=== PATIENT | female | born 1940 | race Caucasian/White ===

== ENCOUNTER 2016-07-10 10:02 | Outpatient (CLI) | payer MEDICARE, OTHER | END 2016-07-10 10:03 | disposition home or self-care (01) | DX: I10 Essential (primary) hypertension (principal); E03.9 Hypothyroidism, unspecified; G89.4 Chronic pain syndrome; S52.591S Other fractures of lower end of right radius, sequela ==

== ENCOUNTER 2016-12-04 13:07 | Outpatient (CLI) | payer MEDICARE, OTHER, MEDICAID ==
--- NOTE | 2016-12-04 14:01 | XRAY Report ---
MODIFIED BARIUM SWALLOW: 12/04/2016 CLINICAL INDICATION: Dysphagia, anorexia. FINDINGS: Various consistencies of barium were prepared and administered in conjunction with Speech Pathology. There was trace penetration with thin liquids. Other administered consistencies were unr emarkable. No aspiration was identified. IMPRESSION: TRACE PENETRATION WITH THIN LIQUID. FLUOROSCOPY TIME: 1 minute; 1 spot image obtained (cinefluoroscopy recorded). JOB #: [id number] EXT JOB #:[id number]
== END 2016-12-04 13:08 | disposition home or self-care (01) ==
LOC: DI 13:07
PROVIDERS: ATTEND Family Medicine
DX: R13.10 Dysphagia, unspecified (principal); R63.0 Anorexia
CPT/HCPCS: 74230; 92611; G8996; G8997; G8998

== ENCOUNTER 2017-01-17 09:05 | Outpatient (CLI) | payer MEDICARE, OTHER, MEDICAID ==
[2017-01-17] MEDS ORDERED: BARIUM SULFATE 176 GM BOTTLE PO ONE (10:09)
--- NOTE | 2017-01-18 09:33 | XRAY Report ---
BARIUM SWALLOW: 01/17/2017 CLINICAL HISTORY: Patient has dysphagia and anorexia as well as a feeling of fullness in the esophag us when eating. FINDINGS: The pharynx and cervical esophagus were studied in detail in the upright position. These demonstrated prominent indentation on the posterior aspect of the cervical esophagus at the level of the cricopharyngeus sphincter muscle. This indentation narrowed the cervical esophagus at least 70%. This type of indentation was seen with each swallow during the course of the examination. It repre sents incomplete relaxation in the cricopharyngeus sphincter muscle and can be a cause of significant dysphagia. Patient aspirated a tiny amount of barium once during the course of the examination. Sh reba quickly cleared it from her airway. Esophageal motility was abnormal. There was no significant primary peristaltic wave or secondary per istaltic wave. Barium was propelled down the esophagus via intermittent tertiary contractions. The distal gastroesophageal junction showed a small sliding hiatal hernia with a prominent, probably partially obstructive Schatzki's ring. This Schatzki's ring at the gastroesophageal junction produce d at least 70% narrowing of the esophagus in this area. No gastroesophageal reflux was noted. Patient was cautioned after the exam that she might encounter constipation. She was to drink a lot o f water today and if necessary, take a mild laxative if constipation is encountered. Total fluoro time was 3 minutes, 3 seconds, and 137 images were taken. IMPRESSION: 1. EXTREMELY PROMINENT EXTRINSIC TYPE INDENTATION IS NOTED ON THE CERVICAL ESOPHAGUS DURING EACH SWA LLOWING. THIS PRODUCES AT LEAST 70% NARROWING OF THE CERVICAL ESOPHAGUS AT THIS POINT. IT REPRESENT S INCOMPLETE RELAXATION OF THE CRICOPHARYNGEUS SPHINCTER MUSCLE. THIS ABNORMALITY WAS NOTED WITH EAC H SWALLOW. PATIENT ALSO ENCOUNTERED AT LEAST ONE MINIMAL EPISODE OF ASPIRATION DISCUSSED ABOVE. 2. ESOPHAGEAL MOTILITY IS ABNORMAL. NO PRIMARY OR SECONDARY PERISTALTIC WAVES WERE NOTED IN THE ESO PHAGUS. BARIUM WAS PROPELLED DOWN THE ESOPHAGUS VIA INTERMITTENT TERTIARY CONTRACTIONS. THIS ESOPHA GEAL MOTILITY DISTURBANCE IS NONSPECIFIC. PRIMARY CONSIDERATION IS A PRESBYESOPHAGUS A RESULT OF AGE. 3. SMALL SLIDING HIATAL HERNIA IS NOTED IN ASSOCIATION WITH A PARTIALLY OBSTRUCTIVE SCHATZKI'S RING. THE SCHATZKI'S RING PRODUCES 70% NARROWING OF THE GASTROESOPHAGEAL JUNCTION. 4. EXAMINATION WAS NEGATIVE FOR GASTROESOPHAGEAL REFLUX. JOB #: [id number] EXT JOB #:[id number]
== END 2017-01-17 09:06 | disposition home or self-care (01) ==
LOC: DI 09:05
PROVIDERS: ATTEND Family Medicine
DX: R13.10 Dysphagia, unspecified (principal); R63.0 Anorexia; K22.2 Esophageal obstruction; K44.9 Diaphragmatic hernia without obstruction or gangrene; K22.4 Dyskinesia of esophagus
CPT/HCPCS: 74220; A9270

== ENCOUNTER 2017-07-31 11:11 | Outpatient (CLI) | payer MEDICARE, MEDICAID | END 2017-07-31 11:12 | disposition critical access hospital (66) | LOC: EMS 11:11 | PROVIDERS: ATTEND Surgery | DX: R52 Pain, unspecified (principal); Z91.81 History of falling | CPT/HCPCS: A0425; A0429 ==

== ENCOUNTER 2017-07-31 11:42 | Inpatient (IN) | payer MEDICARE, MEDICAID ==
[2017-07-31] MEDS ORDERED: SODIUM CHLORIDE 0.9% 1,000 ML IV ONE (12:19)
--- NOTE | 2017-07-31 12:22 | ED Physician Documentation ---
PD HPI ALTERED MENTAL STATUS - Stated complaint Stated Complaint: aloc - Chief complaint Chief Complaint: Neuro - History obtained from History obtained from: Patient, EMS, Caregiver - History of Present Illness Timing - onset: Today Timing - duration: Hours Timing - details: Gradual onset, Still present Quality / character: Less responsive Associated symptoms: Headache, General weakness Contributing factors: Recent injury Basline status: Ambulatory Similar symptoms before: Has not had sx before Recently seen: Clinic - Additional information Additional information: 77-year-old female was in her usual state of health when into see her primary care doctor about 1 week ago to get a flu shot. Shortly after that she developed a cough and she has had increasing cough since and she has had 2 falls. She is fallen and hit the top of her head without loss of consciousness and then last night she fell against the wall and slid to the ground and was not able to get up off the floor. She was discovered this morning by her catalogue and special products manager and was not talking much when the catalogue and special products manager got to her. Review of Systems Constitutional: denies: Fever, Chills Eyes: denies: Decreased vision Ears: denies: Ear pain Nose: denies: Congestion Throat: denies: Sore throat Cardiac: denies: Chest pain / pressure, Palpitations Respiratory: reports: Dyspnea, Cough GI: denies: Abdominal Pain, Nausea, Vomiting : denies: Dysuria, Frequency Musculoskeletal: reports: Back pain. denies: Neck pain Neurologic: reports: Generalized weakness, Confused, Headache, Head injury. denies: Focal weakness, Numbness PD PAST MEDICAL HISTORY - Past Medical History Cardiovascular: Hypertension, High cholesterol Respiratory: COPD Neuro: None Endocrine/Autoimmune: HyPOthyroidism GI: Chronic diarrhea : None HEENT: None Psych: Depression Musculoskeletal: Osteoporosis Derm: None - Past Surgical History Past Surgical History: Yes Ortho: Other HEENT: Cataracts - Present Medications Home Medications: Ambulatory Orders Medication Instructions Recorded Confirmed Cholecalciferol (Vitamin D3) 3,000 units PO DAILY 12/16/13 07/31/17 [Vitamin D] Fluoxetine HCl 40 mg PO DAILY 12/16/13 07/31/17 Fluticasone [Flonase] 2 spray NOEMI DAILY PRN 12/16/13 07/31/17 Levothyroxine Sodium [Levoxyl] 175 mcg PO QDAC 12/16/13 07/31/17 Naproxen [Naprosyn] 500 mg PO BID PRN 12/16/13 07/31/17 Albuterol 3 ml INH Q4H PRN 07/31/17 07/31/17 Calcium Carbonate 600 mg PO BID 07/31/17 07/31/17 Diphenoxylate HCl/Atropine 1 tab PO Q6H PRN 07/31/17 07/31/17 [Diphenoxylate-Atrop 2.5-0.025] Losartan [Cozaar] 50 mg PO DAILY 07/31/17 07/31/17 Mirtazapine [Remeron] 7.5 mg PO QPM PRN 07/31/17 07/31/17 oxyCODONE [Roxicodone] 5 mg PO QID 07/31/17 07/31/17 - Allergies Allergies/Adverse Reactions: Allergies Allergy/AdvReac Type Severity Reaction Status Date / Time No Known Drug Allergies Allergy Verified 02/21/15 10:02 - Social History Does the pt smoke?: Yes Smoking Status: Current every day smoker Does the pt drink ETOH?: Yes Does the pt have substance abuse?: No PD ED PE NORMAL - Vitals Vital signs reviewed: Yes (tachy and mild hypoxia) - General General: No acute distress, Well developed/nourished, Other (The patient has a blunted affect and appears dry. ) - HEENT HEENT: PERRL, EOMI, Other (There is point tendernes to the vertex on the right. mucous membranes are dry ) - Neck Neck: Supple, no meningeal sign, No bony TTP - Cardiac Cardiac: RRR, No murmur - Respiratory Respiratory: No respiratory distress, Other (diminished breath sounds ) - Abdomen Abdomen: Soft, Non tender - Back Back: No CVA TTP, Other (There is mild tenderness to the lower lumbar spine. ) - Derm Derm: Normal color, Warm and dry, No rash - Extremities Extremities: No deformity, No edema - Neuro Neuro: No motor deficit, No sensory deficit, Normal speech Eye Opening: Spontaneous Motor: Obeys Commands Verbal: Oriented GCS Score: 15 - Psych Psych: Normal mood, Normal affect Results - Vitals Vitals: Vital Signs - 24 hr 07/31/17 07/31/17 11:44 14:09 Temperature 37.0 C Heart Rate 109 H 110 H Respiratory 16 20 Rate Blood Pressure 107/67 99/54 L O2 Saturation 88 L 92 Oxygen O2 Source [] Room air O2 Source [] Room air O2 Source Nasal cannula - Labs Labs: Laboratory Tests 07/31/17 07/31/17 07/31/17 12:28 12:28 12:28 WBC 14.2 H RBC 3.90 L Hgb 12.5 Hct 35.9 L MCV 91.9 MCH 32.0 H MCHC 34.8 RDW 12.7 Plt Count 185 MPV 7.5 L Neut # 13.6 H Lymph # 0.3 L [place] # 0.1 Eos # 0.0 Baso # 0.2 H Absolute Nucleated RBC 0.00 Nucleated RBC % 0.0 Manual Slide Review Indicated WBC Morphology NORMAL APPEARANCE Platelet Estimate NORMAL (130-450,000) Platelet Morphology NORMAL APPEARANCE RBC Morph Micro Appear NORMAL APPEARANCE Sodium 132 L Potassium 3.7 Chloride 96 L Carbon Dioxide 20 L Anion Gap 16.0 H BUN 50 H Creatinine 2.1 H Estimated GFR (MDRD) 23 L Glucose 107 H Calcium 9.4 Total Bilirubin 1.4 H AST 35 ALT 31 Alkaline Phosphatase 93 Troponin I 0.04 Total Protein 8.2 Albumin 3.3 Globulin 4.9 H Albumin/Globulin Ratio 0.7 L Lipase 17 L Urine Color Urine Clarity Urine pH Ur Specific [place] Urine Protein Urine Glucose (UA) Urine Ketones Urine Occult Blood Urine Nitrite Urine Bilirubin Urine Urobilinogen Ur Leukocyte Esterase Urine RBC Urine WBC Ur Epithelial Cells Ur Squamous Epith Cells Urine Bacteria Urine Casts Ur Microscopic Review Urine Culture Comments 07/31/17 13:37 WBC RBC Hgb Hct MCV MCH MCHC RDW Plt Count MPV Neut # Lymph # [place] # Eos # Baso # Absolute Nucleated RBC Nucleated RBC % Manual Slide Review WBC Morphology Platelet Estimate Platelet Morphology RBC Morph Micro Appear Sodium Potassium Chloride Carbon Dioxide Anion Gap BUN Creatinine Estimated GFR (MDRD) Glucose Calcium Total Bilirubin AST ALT Alkaline Phosphatase Troponin I Total Protein Albumin Globulin Albumin/Globulin Ratio Lipase Urine Color DARK YELLOW Urine Clarity CLEAR Urine pH 6.0 Ur Specific [place] 1.020 Urine Protein 30 H Urine Glucose (UA) NEGATIVE Urine Ketones NEGATIVE Urine Occult Blood TRACE-LYSE Urine Nitrite NEGATIVE Urine Bilirubin NEGATIVE Urine Urobilinogen 0.2 (NORMAL) Ur Leukocyte Esterase NEGATIVE Urine RBC 0-5 Urine WBC 4-5 Ur Epithelial Cells FEW Transitional Ur Squamous Epith Cells MOD Squamous H Urine Bacteria Few Urine Casts >50 Hyaline Casts Ur Microscopic Review INDICATED Urine Culture Comments NOT INDICATED - Rads (name of study) lumbar spine Radiology: Prelim report reviewed (Impression: 1. No acute fracture identified. 2. Multilevel chronic facet degenerative disease. Grade 1 spondylolisthesis at L4-L5 associated with disc and facet degenerative disease and not excluding spondylolysis.), EMP read indepedently, See rad report 2 view chest Radiology: Prelim report reviewed (Impression: Dense right upper lobe consolidation consistent with pneumonia. Follow-up to complete radiographic clearing is suggested to exclude an underlying malignancy.), EMP read indepedently, See rad report CT head without Radiology: Prelim report reviewed (Impression: Generalized age-related changes without evidence of acute intracranial abnormality.), EMP read indepedently, See rad report Procedures - IVC sono (time) 1218 Bedside IVC sono: IVC measures (cm) (1.12), IVC collapsed c insp (cm) (complete) , Dehydration (est 1 liter deficit) PD MEDICAL DECISION MAKING - ED course Complexity details: reviewed old records, reviewed results, re-evaluated patient , considered differential, d/w patient, d/w family ED course: 77-year-old female with a cough for the past week has developed weakness and has had 2 falls in the past 4 days. She has come in this morning with altered level of consciousness and is found to be significantly dehydrated and has a dense right upper lobe pneumonia. She is administered saline and has marked improvement in her level of consciousness. She does appear to have acute kidney injury on her laboratory evaluation. Dr. Ma is consulted in the case and graciously agrees to admit the patient to the hospital as an inpatient for treatment of pneumonia and dehydration with acute kidney injury. Departure - Departure Disposition: [facility] DC/Xfer Clinical Impression: Weakness, Dehydration Pneumonia Qualifiers: Pneumonia type: due to unspecified organism Laterality: right Lung location: upper lobe of lung Qualified Code(s): J18.1 - Lobar pneumonia, unspecified organism Condition: Fair
[2017-07-31 12:42] LABS: BASOPHILS # (AUTO) 0.2 10^3/uL (0.0-0.1); BASOPHILS % (AUTO) 1.1 %; HGB - HEMOGLOBIN 12.5 g/dL (12.0-16.0); LYMPHOCYTES # (AUTO) 0.3 10^3/uL (1.5-3.5); MEAN CORPUSCULAR HGB CONC 34.8 g/dL (32.0-36.0); MEAN CORPUSCULAR VOLUME 91.9 fL (81.0-99.0); MEAN PLATELET VOLUME 7.5 fL (7.9-10.8); MONOCYTES # (AUTO) 0.1 10^3/uL (0.0-1.0); NEUTROPHILS # (AUTO) 13.6 10^3/uL (1.5-6.6); NEUTROPHILS % (AUTO) 95.9 %; PLT - PLATELET COUNT 185 10^3/uL (130-450); RED CELL DISTRIBUTION WIDTH 12.7 % (12.0-15.0); WHITE BLOOD COUNT 14.2 x10^3/uL (4.8-10.8)
[2017-07-31 12:53] LABS: ALBUMIN 3.3 g/dL (3.2-5.5); ALBUMIN/GLOBULIN RATIO 0.7 (1.0-2.2); BILIRUBIN,TOTAL 1.4 mg/dL (0.2-1.0); CALCIUM 9.4 mg/dL (8.5-10.3); CREATININE 2.1 mg/dL (0.4-1.0); TOTAL PROTEIN 8.2 g/dL (6.7-8.2)
[2017-07-31 12:56] LABS: PLATELET ESTIMATE, MANUAL NORMAL (130-450,000) (NORMAL); PLATELET MORPHOLOGY NORMAL APPEARANCE (NORMAL); RBC MORPHOLOGY (MULTIPLE) NORMAL APPEARANCE (NORMAL)
--- NOTE | 2017-07-31 13:18 | CT Report ---
EXAM: CT HEAD EXAM DATE: 07/31/2017 12:58 PM. CLINICAL HISTORY: Fall altered loc. COMPARISON: None. TECHNIQUE: Multiaxial CT images were obtained from the foramen magnum to the vertex. Reformats: Coron al. IV contrast: None. In accordance with CT protocol optimization, one or more of the following dose reduction techniques w ere utilized for this exam: automated exposure control, adjustment of mA and/or KV based on patient s ize, or use of iterative reconstructive technique. FINDINGS: Parenchyma: No intraparenchymal hemorrhage. No evidence of mass, midline shift, or CT findings of acu te infarction. Black-white differentiation is distinct. Diffuse chronic microangiopathic white matter changes are evident. Extraaxial Spaces: Normal for age. No subdural or epidural collections identified. Ventricles: The ventricles and cortical sulci are enlarged, consistent with age-related tissue loss. Sinuses and orbits: Imaged paranasal sinuses, orbits, and mastoids show no significant abnormality. Bones: No evidence of fracture or calvarial defect. Other: None. IMPRESSION: Generalized age-related changes without evidence of acute intracranial abnormality. [facility] Referring Provider Line: [phone] SITE ID: [id number]
--- NOTE | 2017-07-31 13:45 | XRAY Report ---
EXAM: CHEST RADIOGRAPHY EXAM DATE: 07/31/2017 01:21 PM. CLINICAL HISTORY: Fall hypoxia diminished breath sounds. And esophagram 01/17/2017 COMPARISON: Chest CT 09/08/2014 TECHNIQUE: 2 views. FINDINGS: Lungs/Pleura: There is dense right upper lobe consolidation left lung is clear. No pleural effusion o r pneumothorax. Mediastinum: Heart size normal. Right hilar mass not excluded. Other: Chronic left shoulder deformity. Degenerative change in the spine with bony demineralization a nd height loss of numerous thoracic vertebral bodies. Calcific tendinitis and degenerative change rig ht shoulder. IMPRESSION: Dense right upper lobe consolidation consistent with pneumonia. Follow-up to complete rad iographic clearing suggested to exclude an underlying malignancy. [facility] Referring Provider Line: [phone] SITE ID: [id number]
--- NOTE | 2017-07-31 13:47 | XRAY Report ---
EXAM: LUMBOSACRAL SPINE RADIOGRAPHY EXAM DATE: 07/31/2017 01:21 PM. CLINICAL HISTORY: Fall lower spine pain . COMPARISONS: Pelvis x-ray 02/21/2015. TECHNIQUE: 3 views. FINDINGS: Alignment: There is 10 mm of spondylolisthesis at L4-L5. Alignment at other levels appears satisfacto ry. Bones: Five [id number] lumbar vertebral bodies are present. The lumbar vertebral bodies appear n ormal in height. There is generalized demineralization. Disks: There is [id number] disk height loss with intradiskal gas at L4-L5. Other disk spaces ar e maintained. Facets: There is advanced facet degenerative disease and sclerosis from L3 to the sacrum. The facet j oints are not well seen. Sacroiliac Joints: Unremarkable. Soft Tissues: There old right pubic rami fractures. Previous ORIF of right femur. IMPRESSION: 1. No acute fractures identified. 2. Multilevel chronic facet degenerative disease. Grade 1 spondylolisthesis at L4-L5 associated with disk and facet degenerative disease and not excluding spondylolysis. [facility] Referring Provider Line: [phone] SITE ID: [id number]
--- NOTE | 2017-07-31 13:47 | XRAY Preliminary Report ---
Exam: XR LUMBAR SPINE 2 VIEW IMPRESSION: 1. No acute fractures identified. 2. Multilevel chronic facet degenerative disease. Grade 1 spondylolisthesis at L4-L5 associated with disk and facet degenerative disease and not excluding spondylolysis. [facility] SITE ID: [id number]
[2017-07-31 13:50] LABS: BILIRUBIN,URINE NEGATIVE (NEGATIVE); GLUCOSE, URINE (UA) NEGATIVE (NEGATIVE); KETONES,URINE (UA) NEGATIVE (NEGATIVE); LEUKOCYTE ESTERASE, URINE NEGATIVE (NEGATIVE); NITRITE,URINE NEGATIVE (NEGATIVE); OCCULT BLOOD,URINE TRACE-LYSE (NEGATIVE); PROTEIN,URINE 30 mg/dL (NEGATIVE); UROBILINOGEN,URINE 0.2 (NORMAL) E.U./dL (NORMAL)
[2017-07-31 13:55] LABS: CLARITY,URINE CLEAR (CLEAR)
[2017-07-31 14:04] LABS: BACTERIA,URINE Few /HPF (None Seen); CASTS, URINE >50 Hyaline Casts /LPF; EPITHELIAL CELLS,UR FEW Transitional /HPF (<= Few); RBC,URINE 0-5 /HPF (0-5); SQUAMOUS EPITHELIAL CELL,UR MOD Squamous (<= Few)
[2017-07-31] MEDS ORDERED: cefTRIAXone 1 GM in SODIUM CHLORIDE 0.9% MINIBAG 100 ML IV STA (16:17)
[2017-07-31] MEDS ORDERED: SODIUM CHLORIDE FLUSH 0.9% 10 ML SYRINGE IVP PRN (16:28)
--- NOTE | 2017-07-31 17:24 | HISTORY & PHYSICAL EXAMINATION ---
Chief Complaint - Chief Complaint Chief Complaint: lethargy, AMS History of Present Illness - Admitted From Admitted From:: ED - History Obtained From Records Reviewed: yes History obtained from: chart review, patient and caregiver via phone. Exam Limitations: AMS - History of Present Illness HPI Comment/Other: Nathalia Mills is an ill-appearing 77-year old white female with a past medical history of hypertension, hyperlipidemia, COPD, hypothyroidism, chronic diarrhea , depression, and osteoporosis. Patient has a caregiver ~5 days per week and otherwise lives independently. As per phone interview with caregiver, Kingsley Mckeon; Patient admits to her first fall on Saturday (5 days ago) in which she lost her balance while changing the helio litter and sustained a "bump on the head". She also states that she had a 2nd fall on Saturday (3 days ago) and notes that she simply fell on her bottom, but did not want to call for help even though she wears a life alert around her neck. On Saturday AM, the caregiver came to her home and spent the day and at that time first learned of the falls. In addition, the patient stated that she has had a headache ever since her first fall, and thinks she may have lied on the floor for up to 6 hours before making her way to her couch. The caregiver stated that Nathalia had no appetite on Saturday, and when a meal was prepared for her, she did not eat it. On Saturday the caregiver returned and noticed the patient having chills, was still not eating and appeared pale. Today, the caregiver came by and states the patient appeared short of breath, very lethargic, looked even more pale, was still not eating or drinking, and could barely move. She asked the patient's permission to dial 911, and Nathalia agreed with a transfer to the ED. Once in the ED a chest x-ray revealed a RUL infiltrate/consolidation, elevated WBCs, hypotension, tachycardia and hypoxia. A urine sample was obtained and is pending. Additional images included a lumbar spine and a head CT. Patient will be admitted to inpatient for treatment of RUL PNA, AMS, dehydration and electrolyte abnormalities. History - Past Medical History Cardiovascular: reports: Hypertension, High cholesterol Respiratory: reports: COPD Neuro: reports: None Endocrine/Autoimmune: reports: HyPOthyroidism GI: reports: Chronic diarrhea : reports: Incontinence, Nocturia HEENT: reports: Chronic hearing loss Psych: reports: Depression Musculoskeletal: reports: Osteoporosis Derm: reports: None MRSA Hx?: No - Past Surgical History Ortho: reports: Other HEENT: reports: Cataracts - Family & Social History Family History: Mother: , Father: Family History Comment/Other: Family history may not contribute. Patient has 2 grown children, and an astranged . 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 Unknown coarse of events related to that is listed in the chart. Per caregiver, she does not know why they are astranged. The patient has a cat at home, and has known to be a daily everyday smoker. She attends every 3 month check ups at her PCP's office for chronic oxycodone refills and was just seen 8 days ago. - Substance History Use: Uses substance without health or social issues: NONE Abuse: Recurrent use of substance despite neg consequences: NONE Dependence: Experiences withdrawal or developed tolerances: Tobacco Tobacco Details: Cigarettes (unable to get a true estimate, but ED notes current every day smoker.) - POLST Patient has POLST: No POLST Status: Full Code Meds/Allgy - Home Medications Home Medications: Ambulatory Orders Medication Instructions Recorded Confirmed Cholecalciferol (Vitamin D3) 3,000 units PO DAILY 12/16/13 07/31/17 [Vitamin D] Fluoxetine HCl 40 mg PO DAILY 12/16/13 07/31/17 Levothyroxine Sodium [Levoxyl] 175 mcg PO QDAC 12/16/13 07/31/17 Naproxen [Naprosyn] 500 mg PO BID PRN 12/16/13 07/31/17 Calcium Carbonate 600 mg PO BID 07/31/17 07/31/17 Diphenoxylate HCl/Atropine 1 tab PO Q6H PRN 07/31/17 07/31/17 [Diphenoxylate-Atrop 2.5-0.025] Losartan [Cozaar] 50 mg PO DAILY 07/31/17 07/31/17 Simvastatin [Simvastatin] 40 mg PO QPM 07/31/17 07/31/17 oxyCODONE [Roxicodone] 5 mg PO QID 07/31/17 07/31/17 - Allergies Allergies/Adverse Reactions: Allergies Allergy/AdvReac Type Severity Reaction Status Date / Time No Known Drug Allergies Allergy Verified 02/21/15 10:02 Review of Systems - Constitutional Constitutional: reports: Fatigue, Fever, Chills, Weakness, Poor appetite - Eyes Eyes: reports: Corrective lenses - Ears, Nose & Throat Ears, Nose & Throat: reports: Hearing aids - Cardiovascular Cariovascular: reports: Syncope - Respiratory Respiratory: reports: Cough, SOB at rest, SOB with exertion - Gastrointestinal Gastrointestinal: reports: Poor appetite - Genitourinary Genitourinary: reports: Dysuria, Incontinence, Nocturia - Musculoskeletal Musculoskeletal: reports: Limited range of motion, Joint swelling, Other (back pain-chronic) - Neurological Neurological: reports: Headache, Pre-existing deficit - Psychiatric Psychiatric: reports: Depression - All Other Systems All Other Systems: reports: Reviewed and negative Exam - Vital Signs Reviewed Vital Signs: Yes - Physical Exam General Appearance: positive: Moderate distress, Lethargic Eyes Bilateral: positive: Normal inspection ENT: positive: ENT inspection nml, Dry mucous membranes Neck: positive: Nml inspection, Trachea midline, Stiff neck Respiratory: positive: Chest non-tender, Other (diminished, crackles right) Cardiovascular: positive: No gallop, Irregularly irregular, Tachycardia, Systolic murmur, Decreased pulse(s) Peripheral Pulses: positive: 1+ Abdomen: positive: Non-tender, No organomegaly, Nml bowel sounds, Other (rounded , soft) Back: positive: Nml inspection Skin: positive: No rash, Warm, Dry Extremities: positive: Non-tender, Full ROM, Pedal edema, Joint swelling Neurologic/Psychiatric: positive: Disoriented to place, Disoriented to time, Weakness, Sensory loss, Slurred/abnml speech (due to acute mental status changes.), Depressed mood/affect Reflexes: Bicep (R): 1+, Bicep (L): 1+ Conclusion/Plan - Problem List (1) Dehydration Conclusion/Plan: Per conversation with caregiver upon admission, patient had at least a 3 day history prior to admission of very poor PO intake and appeared to have dry mucous membranes. At the time of admission, patient had low sodium, elevated creatinine of 2.1 and altered mental status which all suggest ongoing dehydration. Plan: Monitor vital signs. Continuous IVF of normal saline- initial rate of 100ml/hour. Monitor urine output, mucous membranes and LOC. (2) Weakness Conclusion/Plan: Per caregiver report at the time of admission, patient had a least 2 episodes of falls without sentinel injury. Patient appears weak at he time of admission. Suspected due to infection or underlying cause of falls. Plan: Monitor weights, mental status and PT evaluation will be ordered. (3) Right upper lobe pneumonia Conclusion/Plan: A 2 view chest x-ray was taken when patient arrived in the ED. X-ray revealed a RUL pneumonia/consolidation, also suspicious for malignancy. Plan: Treat with IV antibiotics, attempt to obtain a sputum sample, and RT therapy with nebulizers as needed. (4) Hypoxia Conclusion/Plan: Patient does not wear chronic oxygen at home. Upon arrival to ED, patient was found to be hypoxic with oxygen saturations in the 80's. When patient arrived to the nursing floor, she demonstrated increased breathing efforts, mild mottling in BUE, BLE and had an elevated RR of 32. Plan: Check ABG's, RT, incentive spirometer, and administer oxygen as needed. Code status: FULL as per patient, will re-address. DVT prophylaxis: Lovenox 40mg QD, SCD's. - Lab Results Lab results reviewed: Yes Fish Bones: 07/31/17 12:28 07/31/17 19:12 - Diagnostic Imaging Results Diagnostic Imaging Results: positive: Prelim report reviewed, Final report reviewed Diagnostic Imaging Results Comments: 2 view chest x-ray: FINDINGS: Lungs/Pleura: There is dense right upper lobe consolidation left lung is clear. No pleural effusion or pneumothorax. Mediastinum: Heart size normal. Right hilar mass not excluded. Other: Chronic left shoulder deformity. Degenerative change in the spine with bony demineralization and height loss of numerous thoracic vertebral bodies. Calcific tendinitis and degenerative change right shoulder. IMPRESSION: Dense right upper lobe consolidation consistent with pneumonia. Follow-up to complete radiographic clearing suggested to exclude an underlying malignancy. Lumbar spine: FINDINGS: Alignment: There is 10 mm of spondylolisthesis at L4-L5. Alignment at other levels appears satisfactory. Bones: Five [id number] lumbar vertebral bodies are present. The lumbar vertebral bodies appear normal in height. There is generalized demineralization. Disks: There is [id number] disk height loss with intradiskal gas at L4- L5. Other disk spaces are maintained. Facets: There is advanced facet degenerative disease and sclerosis from L3 to the sacrum. The facet joints are not well seen. Sacroiliac Joints: Unremarkable. Soft Tissues: There old right pubic rami fractures. Previous ORIF of right femur. IMPRESSION: 1. No acute fractures identified. 2. Multilevel chronic facet degenerative disease. Grade 1 spondylolisthesis at L4-L5 associated with disk and facet degenerative disease and not excluding spondylolysis. Head CT W/O: FINDINGS: Parenchyma: No intraparenchymal hemorrhage. No evidence of mass, midline shift, or CT findings of acute infarction. Black-white differentiation is distinct. Diffuse chronic microangiopathic white matter changes are evident. Extraaxial Spaces: Normal for age. No subdural or epidural collections identified. Ventricles: The ventricles and cortical sulci are enlarged, consistent with age- related tissue loss. Sinuses and orbits: Imaged paranasal sinuses, orbits, and mastoids show no significant abnormality. Bones: No evidence of fracture or calvarial defect. Other: None. IMPRESSION: Generalized age-related changes without evidence of acute intracranial abnormality. - EKG Results EKG Interpreted Independently: Yes EKG Comparison: Old EKG unavailable Core Measures - Anticipated LOS I expect patient to be DC'd or transferred within 96 hours.: Yes - DVT/VTE - Prophylaxis VTE/DVT Device ordered at admit?: Yes VTE/DVT Prophylaxis med ordered at admit?: Yes - Stroke - Rehab Assessment Rehab services assessment to be ordered?: Yes - AMI - Statin at Admit Aspirin Prescribed on Admit: Yes
[2017-07-31] MEDS: SODIUM CHLORIDE FLUSH 0.9% 10 ML SYRINGE IVP SCH (17:25)
[2017-07-31] MEDS: SODIUM CHLORIDE 0.9% 1,000 ML IV SCH (17:25)
[2017-07-31 18:34] LABS: ABG PCO2 30 mmHg (34-45); ABG PH 7.44 (7.35-7.45)
[2017-07-31 18:36] LABS: ABG BASE EXCESS -3.4 mmol/L (-2.0-3.0); ABG HCO3 19.7 mmol/L (22.0-26.0); ABG PO2 48 mmHg (80-100); ABG TCO2 20.6 MMOL/L (21.0-29.0)
[2017-07-31 18:37] LABS: ABG OXYGEN SATURATION 87 % (94-98); ALLEN TEST POSITIVE
[2017-07-31 20:23] LABS: BUN - BLOOD UREA NITROGEN 49 mg/dL (6-20); CALCIUM 8.5 mg/dL (8.5-10.3); CARBON DIOXIDE - CO2 20 mmol/L (21-32); CHLORIDE 100 mmol/L (101-111); CK- CREATINE KINASE 116 IU/L (22-269); CREATININE 1.9 mg/dL (0.4-1.0); CRP - C-REACTIVE PROTEIN 32.7 mg/dL (0-1.0); GFR - MDRD 26 (>89); GLUCOSE 96 mg/dL (70-100); SODIUM 133 mmol/L (135-145)
[2017-07-31] MEDS ORDERED: SODIUM CHLORIDE 0.9% 500 ML IV ONE (20:57)
[2017-07-31] MEDS ORDERED: METOPROLOL 5 MG/5 ML VIAL IVP SCH (21:00)
[2017-07-31] MEDS ORDERED: ACETAMINOPHEN 1,000 MG/100 ML 100 ML IV PRN (21:03)
[2017-07-31] MEDS: ACETAMINOPHEN 325 MG TABLET PO PRN (21:19)
[2017-07-31] MEDS ORDERED: METOPROLOL 5 MG/5 ML VIAL IVP PRN (23:21)
[2017-08-01] MEDS: SODIUM CHLORIDE 0.9% 1,000 ML IV SCH ×2 (03:17→13:50)
[2017-08-01] MEDS: SODIUM CHLORIDE FLUSH 0.9% 10 ML SYRINGE IVP SCH ×3 (03:45→22:28)
[2017-08-01 05:12] LABS: BASOPHILS % (AUTO) 0.1 %; EOSINOPHILS % (AUTO) 0.1 %; HGB - HEMOGLOBIN 10.7 g/dL (12.0-16.0); LYMPHOCYTES % (AUTO) 3.3 %; MEAN CORPUSCULAR HEMOGLOBIN 32.6 pg (27.0-31.0); MEAN CORPUSCULAR HGB CONC 33.9 g/dL (32.0-36.0); MEAN CORPUSCULAR VOLUME 96.2 fL (81.0-99.0); MEAN PLATELET VOLUME 7.5 fL (7.9-10.8); MONOCYTES % (AUTO) 2.4 %; NEUTROPHILS % (AUTO) 94.1 %; PLT - PLATELET COUNT 153 10^3/uL (130-450); RED BLOOD COUNT 3.28 10^6/uL (4.20-5.40); WHITE BLOOD COUNT 9.8 x10^3/uL (4.8-10.8)
[2017-08-01 05:13] LABS: ABNORMAL LYMPHS % (MANUAL) 0 %
[2017-08-01 05:19] LABS: ALBUMIN 2.5 g/dL (3.2-5.5); ALBUMIN/GLOBULIN RATIO 0.7 (1.0-2.2); BILIRUBIN,TOTAL 0.8 mg/dL (0.2-1.0); CALCIUM 8.2 mg/dL (8.5-10.3); CREATININE 1.6 mg/dL (0.4-1.0); TOTAL PROTEIN 6.2 g/dL (6.7-8.2)
[2017-08-01 05:20] LABS: MUDS CUTOFF CONCENTRATIONS CUTOFF CONC BELOW:
[2017-08-01 05:30] LABS: AMPHETAMINE SCREEN,URINE NEGATIVE (NEGATIVE); BENZODIAZEPINES SCREEN, URINE POSITIVE (NEGATIVE); COCAINE SCREEN URINE NEGATIVE (NEGATIVE); METHAMPHETAMINES SCREEN, URINE NEGATIVE (NEGATIVE); OPIATE SCREEN, URINE NEGATIVE (NEGATIVE); TRICYCLIC ANTIDEPRESSANT,URINE NEGATIVE (NEGATIVE)
[2017-08-01 05:31] LABS: METHADONE SCREEN, URINE NEGATIVE (NEGATIVE); OXYCODONE SCREEN, URINE POSITIVE (NEGATIVE); PROPOXYPHENE SCREEN, URINE NEGATIVE (NEGATIVE)
[2017-08-01 05:40] LABS: BAND NEUTROPHILS % (MANUAL) 18 %; DIFFERENTIAL COMMENT MANUAL DIFFERENTIAL; LYMPHOCYTES # (MANUAL) 0.6 10^3/uL (1.5-3.5); LYMPHOCYTES % (MANUAL) 6 %; MONOCYTES # (MANUAL) 0.5 10^3/uL (0.0-1.0); NEUTROPHILS # (MANUAL) 8.7 10^3/uL (1.5-6.6); NEUTROPHILS % (MANUAL) 71 %; PLATELET ESTIMATE, MANUAL NORMAL (130-450,000) (NORMAL); RBC MORPHOLOGY (MULTIPLE) NORMAL APPEARANCE (NORMAL)
[2017-08-01] MEDS ORDERED: LEVOTHYROXINE 100 MCG VIAL IVP SCH (07:00)
--- NOTE | 2017-08-01 07:20 | PROVIDER PROGRESS NOTE ---
Subjective - Prog Note Date Prog Note Date: 08/01/17 Prog Note Time: 07:20 - Subjective Pt reports feeling: Improved Subjective: Nathalia had improved mental status and had a visit from her caregiver. She denies chest pain, N/V or a new cough. Current Medications - Current Medications Current Medications: Active Medications Acetaminophen (Tylenol) 650 mg PO Q4HR PRN PRN Reason: Pain or Fever > 38C (100.4F) Last Admin: 08/01/17 16:39 Dose: 650 mg Enoxaparin Sodium (Lovenox) 30 mg SUBQ DAILY [facility] Last Admin: 08/02/17 08:18 Dose: 30 mg Sodium Chloride (Normal Saline 0.9%) 1,000 mls @ 100 mls/hr IV .Q10H [facility] Last Admin: 08/02/17 19:49 Dose: Not Given Ceftriaxone Sodium 1 gm/ (Sodium Chloride) 100 mls @ 200 mls/hr IV DAILY@1700 [facility] Last Infusion: 08/02/17 17:30 Dose: Infused Acetaminophen (Ofirmev) 100 mls @ 400 mls/hr IV Q6HR PRN PRN Reason: PAIN Levalbuterol HCl (Xopenex) 1.25 mg INH RTQ4H PRN PRN Reason: WHEEZING/SOA Last Admin: 08/02/17 09:38 Dose: 1.25 mg Levothyroxine Sodium (Synthroid) 75 mcg PO QDAC [facility] Last Admin: 08/02/17 06:05 Dose: 75 mcg Levothyroxine Sodium (Synthroid) 100 mcg PO QDAC [facility] Last Admin: 08/02/17 06:05 Dose: 100 mcg Metoprolol Tartrate (Lopressor Inj) 5 mg IVP Q6H PRN PRN Reason: Tachycardia Oxycodone HCl (Roxicodone) 5 mg PO QID [facility] Last Admin: 08/02/17 16:31 Dose: 5 mg Polyethylene Glycol (Miralax) 17 gm PO DAILY [facility] Last Admin: 08/02/17 08:21 Dose: Not Given Potassium Chloride (K-Dur) 40 meq PO DAILYWM [facility] Last Admin: 08/02/17 10:54 Dose: 40 meq Sodium Chloride (Normal Saline Flush 0.9%) 10 ml IVP PRN PRN PRN Reason: NEEDED PER PROVIDER ORDERS Sodium Chloride (Normal Saline Flush 0.9%) 10 ml IVP Q8HR [facility] Last Admin: 08/02/17 15:58 Dose: Not Given Cholecalciferol (Vitamin D3) [Vitamin D] 3,000 units PO DAILY 12/16/13 Fluoxetine HCl 40 mg PO DAILY 12/16/13 Levothyroxine Sodium [Levoxyl] 175 mcg PO QDAC 12/16/13 Naproxen [Naprosyn] 500 mg PO BID PRN 12/16/13 Calcium Carbonate 600 mg PO BID 07/31/17 Diphenoxylate HCl/Atropine [Diphenoxylate-Atrop 2.5-0.025] 1 tab PO Q6H PRN Losartan [Cozaar] 50 mg PO DAILY 07/31/17 Simvastatin [Simvastatin] 40 mg PO QPM 07/31/17 oxyCODONE [Roxicodone] 5 mg PO QID 07/31/17 Objective - Vital Signs/Intake & Output Reviewed Vital Signs: Yes Vital Signs: Vital Signs x48h Temp Pulse Resp BP Pulse Ox 08/01/17 05:00 37.3 C 101 H 20 129/67 96 08/01/17 00:41 36.6 C 86 22 94/51 L 96 Intake & Output: Intake & Output 07/29/17 07/30/17 07/31/17 08/01/17 23:59 23:59 23:59 23:59 Intake Total 950 986.667 Output Total 50 Balance 950 936.667 - Objective General Appearance: positive: Moderate distress, Anxious, Lethargic Eyes Bilateral: positive: Normal inspection Eyes: OU Conjunctivae pale ENT: positive: ENT inspection nml, Pharynx nml, Dry mucous membranes Neck: positive: Nml inspection, Stiff neck Respiratory: positive: Chest non-tender, Wheezes, Rales Cardiovascular: positive: Irregularly irregular, Tachycardia, Systolic murmur, Decreased pulse(s) Peripheral Pulses: 1+ Radial (R), 1+ Radial (L) Abdomen: positive: Non-tender, No organomegaly, Nml bowel sounds Back: positive: Nml inspection Skin: positive: No rash, Warm, Dry, Pallor Extremities: positive: Non-tender, Pedal edema, Joint swelling Neurologic/Psychiatric: positive: Disoriented to place, Disoriented to time, Weakness, Sensory loss, Depressed mood/affect Reflexes: Bicep (R): 2+, Bicep (L): 2+ - Lab Results Fish Bones: 08/02/17 04:05 08/02/17 04:05 Other Labs: Lab Results x24hrs 08/01/17 08/01/17 08/01/17 Range/Units 05:00 04:55 04:55 WBC (4.8-10.8) x10^3/uL RBC (4.20-5.40) 10^6/uL Hgb (12.0-16.0) g/dL Hct (37.0-47.0) % MCV (81.0-99.0) fL MCH (27.0-31.0) pg MCHC (32.0-36.0) g/dL RDW (12.0-15.0) % Plt Count (130-450) 10^3/uL MPV (7.9-10.8) fL Neut # Lymph # Ness # Eos # Baso # Absolute Nucleated RBC Total Counted Band Neuts % (Manual) (0 - 10) % Abnorm Lymph % (Manual) % Nucleated RBC % Neutrophils # (Manual) (1.5-6.6) 10^3/uL Lymphocytes # (Manual) (1.5-3.5) 10^3/uL Monocytes # (Manual) (0.0-1.0) 10^3/uL Eosinophils # (Manual) (0-0.7) 10^3/uL Basophils # (Manual) (0-0.1) 10^3/uL Differential Comment Platelet Estimate (NORMAL) RBC Morph Micro Appear (NORMAL) ESR (0-30) mm/Hr Bld Gas Analysis Time Sample Site ABG pH (7.35-7.45) ABG pCO2 (34-45) mmHg ABG pO2 (80-100) mmHg ABG HCO3 (22.0-26.0) mmol/L ABG Total CO2 (21.0-29.0) MMOL/L ABG O2 Saturation (94-98) % ABG Oximetry Spot Check % ABG Base Excess (-2.0-3.0) mmol/L Felipe Test O2 Delivery Device O2 Liters/Min LPM Sodium (135-145) mmol/L Potassium (3.5-5.0) mmol/L Chloride (101-111) mmol/L Carbon Dioxide (21-32) mmol/L Anion Gap (6-13) BUN (6-20) mg/dL Creatinine (0.4-1.0) mg/dL Estimated GFR (MDRD) (>89) Glucose (70-100) mg/dL Lactic Acid 1.0 (0.5-2.2) mmol/L Calcium (8.5-10.3) mg/dL Total Bilirubin (0.2-1.0) mg/dL AST (10-42) IU/L ALT (10-60) IU/L Alkaline Phosphatase (42-121) IU/L Total Creatine Kinase (22-269) IU/L Troponin I 0.04 (<0.49) ng/mL C-Reactive Protein (0-1.0) mg/dL Total Protein (6.7-8.2) g/dL Albumin (3.2-5.5) g/dL Globulin (2.1-4.2) g/dL Albumin/Globulin Ratio (1.0-2.2) TSH (0.34-5.60) uIU/mL Urine Opiates Screen NEGATIVE (NEGATIVE) Ur Oxycodone Screen POSITIVE H (NEGATIVE) Urine Methadone Screen NEGATIVE (NEGATIVE) Ur Propoxyphene Screen NEGATIVE (NEGATIVE) Ur Barbiturates Screen NEGATIVE (NEGATIVE) Ur Tricyclics Screen NEGATIVE (NEGATIVE) Ur Phencyclidine Scrn NEGATIVE (NEGATIVE) Ur Amphetamine Screen NEGATIVE (NEGATIVE) U Methamphetamines Scrn NEGATIVE (NEGATIVE) U Benzodiazepines Scrn POSITIVE H (NEGATIVE) Urine Cocaine Screen NEGATIVE (NEGATIVE) U Cannabinoids Screen NEGATIVE (NEGATIVE) Ethyl Alcohol mg/dL 08/01/17 08/01/17 08/01/17 Range/Units 04:55 04:55 04:55 WBC 9.8 (4.8-10.8) x10^3/uL RBC 3.28 L (4.20-5.40) 10^6/uL Hgb 10.7 L (12.0-16.0) g/dL Hct 31.6 L (37.0-47.0) % MCV 96.2 (81.0-99.0) fL MCH 32.6 H (27.0-31.0) pg MCHC 33.9 (32.0-36.0) g/dL RDW 13.0 (12.0-15.0) % Plt Count 153 (130-450) 10^3/uL MPV 7.5 L (7.9-10.8) fL Neut # Not Reportable Lymph # Not Reportable Ness # Not Reportable Eos # Not Reportable Baso # Not Reportable Absolute Nucleated RBC Not Reportable Total Counted 100 Band Neuts % (Manual) 18 H (0 - 10) % Abnorm Lymph % (Manual) 0 % Nucleated RBC % Not Reportable Neutrophils # (Manual) 8.7 H (1.5-6.6) 10^3/uL Lymphocytes # (Manual) 0.6 L (1.5-3.5) 10^3/uL Monocytes # (Manual) 0.5 (0.0-1.0) 10^3/uL Eosinophils # (Manual) 0.0 (0-0.7) 10^3/uL Basophils # (Manual) 0.0 (0-0.1) 10^3/uL Differential Comment MANUAL DIFFERENTIAL Platelet Estimate NORMAL (130-450,000) (NORMAL) RBC Morph Micro Appear NORMAL APPEARANCE (NORMAL) ESR (0-30) mm/Hr Bld Gas Analysis Time Sample Site ABG pH (7.35-7.45) ABG pCO2 (34-45) mmHg ABG pO2 (80-100) mmHg ABG HCO3 (22.0-26.0) mmol/L ABG Total CO2 (21.0-29.0) MMOL/L ABG O2 Saturation (94-98) % ABG Oximetry Spot Check % ABG Base Excess (-2.0-3.0) mmol/L Felipe Test O2 Delivery Device O2 Liters/Min LPM Sodium 135 (135-145) mmol/L Potassium 3.4 L (3.5-5.0) mmol/L Chloride 105 (101-111) mmol/L Carbon Dioxide 16 L (21-32) mmol/L Anion Gap 14.0 H (6-13) BUN 46 H (6-20) mg/dL Creatinine 1.6 H (0.4-1.0) mg/dL Estimated GFR (MDRD) 31 L (>89) Glucose 111 H (70-100) mg/dL Lactic Acid (0.5-2.2) mmol/L Calcium 8.2 L (8.5-10.3) mg/dL Total Bilirubin 0.8 (0.2-1.0) mg/dL AST 47 H (10-42) IU/L ALT 31 (10-60) IU/L Alkaline Phosphatase 68 (42-121) IU/L Total Creatine Kinase (22-269) IU/L Troponin I (<0.49) ng/mL C-Reactive Protein (0-1.0) mg/dL Total Protein 6.2 L (6.7-8.2) g/dL Albumin 2.5 L (3.2-5.5) g/dL Globulin 3.7 (2.1-4.2) g/dL Albumin/Globulin Ratio 0.7 L (1.0-2.2) TSH 1.45 (0.34-5.60) uIU/mL Urine Opiates Screen (NEGATIVE) Ur Oxycodone Screen (NEGATIVE) Urine Methadone Screen (NEGATIVE) Ur Propoxyphene Screen (NEGATIVE) Ur Barbiturates Screen (NEGATIVE) Ur Tricyclics Screen (NEGATIVE) Ur Phencyclidine Scrn (NEGATIVE) Ur Amphetamine Screen (NEGATIVE) U Methamphetamines Scrn (NEGATIVE) U Benzodiazepines Scrn (NEGATIVE) Urine Cocaine Screen (NEGATIVE) U Cannabinoids Screen (NEGATIVE) Ethyl Alcohol mg/dL 07/31/17 07/31/17 07/31/17 Range/Units 19:12 19:12 19:12 WBC (4.8-10.8) x10^3/uL RBC (4.20-5.40) 10^6/uL Hgb (12.0-16.0) g/dL Hct (37.0-47.0) % MCV (81.0-99.0) fL MCH (27.0-31.0) pg MCHC (32.0-36.0) g/dL RDW (12.0-15.0) % Plt Count (130-450) 10^3/uL MPV (7.9-10.8) fL Neut # Lymph # Ness # Eos # Baso # Absolute Nucleated RBC Total Counted Band Neuts % (Manual) (0 - 10) % Abnorm Lymph % (Manual) % Nucleated RBC % Neutrophils # (Manual) (1.5-6.6) 10^3/uL Lymphocytes # (Manual) (1.5-3.5) 10^3/uL Monocytes # (Manual) (0.0-1.0) 10^3/uL Eosinophils # (Manual) (0-0.7) 10^3/uL Basophils # (Manual) (0-0.1) 10^3/uL Differential Comment Platelet Estimate (NORMAL) RBC Morph Micro Appear (NORMAL) ESR 114 H (0-30) mm/Hr Bld Gas Analysis Time Sample Site ABG pH (7.35-7.45) ABG pCO2 (34-45) mmHg ABG pO2 (80-100) mmHg ABG HCO3 (22.0-26.0) mmol/L ABG Total CO2 (21.0-29.0) MMOL/L ABG O2 Saturation (94-98) % ABG Oximetry Spot Check % ABG Base Excess (-2.0-3.0) mmol/L Felipe Test O2 Delivery Device O2 Liters/Min LPM Sodium (135-145) mmol/L Potassium (3.5-5.0) mmol/L Chloride (101-111) mmol/L Carbon Dioxide (21-32) mmol/L Anion Gap (6-13) BUN (6-20) mg/dL Creatinine (0.4-1.0) mg/dL Estimated GFR (MDRD) (>89) Glucose (70-100) mg/dL Lactic Acid 1.9 (0.5-2.2) mmol/L Calcium (8.5-10.3) mg/dL Total Bilirubin (0.2-1.0) mg/dL AST (10-42) IU/L ALT (10-60) IU/L Alkaline Phosphatase (42-121) IU/L Total Creatine Kinase (22-269) IU/L Troponin I 0.04 (<0.49) ng/mL C-Reactive Protein (0-1.0) mg/dL Total Protein (6.7-8.2) g/dL Albumin (3.2-5.5) g/dL Globulin (2.1-4.2) g/dL Albumin/Globulin Ratio (1.0-2.2) TSH (0.34-5.60) uIU/mL Urine Opiates Screen (NEGATIVE) Ur Oxycodone Screen (NEGATIVE) Urine Methadone Screen (NEGATIVE) Ur Propoxyphene Screen (NEGATIVE) Ur Barbiturates Screen (NEGATIVE) Ur Tricyclics Screen (NEGATIVE) Ur Phencyclidine Scrn (NEGATIVE) Ur Amphetamine Screen (NEGATIVE) U Methamphetamines Scrn (NEGATIVE) U Benzodiazepines Scrn (NEGATIVE) Urine Cocaine Screen (NEGATIVE) U Cannabinoids Screen (NEGATIVE) Ethyl Alcohol mg/dL 07/31/17 07/31/17 Range/Units 19:12 18:25 WBC (4.8-10.8) x10^3/uL RBC (4.20-5.40) 10^6/uL Hgb (12.0-16.0) g/dL Hct (37.0-47.0) % MCV (81.0-99.0) fL MCH (27.0-31.0) pg MCHC (32.0-36.0) g/dL RDW (12.0-15.0) % Plt Count (130-450) 10^3/uL MPV (7.9-10.8) fL Neut # Lymph # Ness # Eos # Baso # Absolute Nucleated RBC Total Counted Band Neuts % (Manual) (0 - 10) % Abnorm Lymph % (Manual) % Nucleated RBC % Neutrophils # (Manual) (1.5-6.6) 10^3/uL Lymphocytes # (Manual) (1.5-3.5) 10^3/uL Monocytes # (Manual) (0.0-1.0) 10^3/uL Eosinophils # (Manual) (0-0.7) 10^3/uL Basophils # (Manual) (0-0.1) 10^3/uL Differential Comment Platelet Estimate (NORMAL) RBC Morph Micro Appear (NORMAL) ESR (0-30) mm/Hr Bld Gas Analysis Time 1825 Sample Site LEFT RADIAL ABG pH 7.44 (7.35-7.45) ABG pCO2 30 L (34-45) mmHg ABG pO2 48 L* (80-100) mmHg ABG HCO3 19.7 L (22.0-26.0) mmol/L ABG Total CO2 20.6 L (21.0-29.0) MMOL/L ABG O2 Saturation 87 L* (94-98) % ABG Oximetry Spot Check 94 % ABG Base Excess -3.4 L (-2.0-3.0) mmol/L Felipe Test POSITIVE O2 Delivery Device NASAL CANNULA O2 Liters/Min 4.00 LPM Sodium 133 L (135-145) mmol/L Potassium 3.6 (3.5-5.0) mmol/L Chloride 100 L (101-111) mmol/L Carbon Dioxide 20 L (21-32) mmol/L Anion Gap 13.0 (6-13) BUN 49 H (6-20) mg/dL Creatinine 1.9 H (0.4-1.0) mg/dL Estimated GFR (MDRD) 26 L (>89) Glucose 96 (70-100) mg/dL Lactic Acid (0.5-2.2) mmol/L Calcium 8.5 (8.5-10.3) mg/dL Total Bilirubin (0.2-1.0) mg/dL AST (10-42) IU/L ALT (10-60) IU/L Alkaline Phosphatase (42-121) IU/L Total Creatine Kinase 116 (22-269) IU/L Troponin I (<0.49) ng/mL C-Reactive Protein 32.7 H (0-1.0) mg/dL Total Protein (6.7-8.2) g/dL Albumin (3.2-5.5) g/dL Globulin (2.1-4.2) g/dL Albumin/Globulin Ratio (1.0-2.2) TSH (0.34-5.60) uIU/mL Urine Opiates Screen (NEGATIVE) Ur Oxycodone Screen (NEGATIVE) Urine Methadone Screen (NEGATIVE) Ur Propoxyphene Screen (NEGATIVE) Ur Barbiturates Screen (NEGATIVE) Ur Tricyclics Screen (NEGATIVE) Ur Phencyclidine Scrn (NEGATIVE) Ur Amphetamine Screen (NEGATIVE) U Methamphetamines Scrn (NEGATIVE) U Benzodiazepines Scrn (NEGATIVE) Urine Cocaine Screen (NEGATIVE) U Cannabinoids Screen (NEGATIVE) Ethyl Alcohol < 5.0 mg/dL - Diagnostic Imaging Diagnostic Imaging Results: positive: Prelim report reviewed Assessment/Plan - Problem List (1) Dehydration Impression: Per conversation with caregiver upon admission, patient had at least a 3 day history prior to admission of very poor PO intake and appeared to have dry mucous membranes. At the time of admission, patient had low sodium, elevated creatinine of 2.1 and altered mental status which all suggest ongoing dehydration. Plan: Monitor vital signs. Continuous IVF of normal saline- initial rate of 100ml/hour. Monitor urine output, mucous membranes and LOC. (2) Right upper lobe pneumonia Impression: A 2 view chest x-ray was taken when patient arrived in the ED. X-ray revealed a RUL pneumonia/consolidation, also suspicious for malignancy. Plan: Treat with IV antibiotics, attempt to obtain a sputum sample, and RT therapy with nebulizers as needed. (3) Hypoxia Impression: Patient does not wear chronic oxygen at home. Upon arrival to ED, patient was found to be hypoxic with oxygen saturations in the 80's. Plan: Continue high-flow O2 with RT, incentive spirometer, and administer oxygen as needed. (4) Weakness Impression: Per caregiver report at the time of admission, patient had a least 2 episodes of falls without sentinel injury. Patient appears weak at he time of admission. Suspected due to infection or underlying cause of falls. Plan: Monitor weights, mental status and PT evaluation will be ordered.
[2017-08-01] MEDS: LEVOTHYROXINE 100 MCG TABLET PO SCH (08:15)
[2017-08-01] MEDS: ACETAMINOPHEN 325 MG TABLET PO PRN ×2 (08:15→16:39)
[2017-08-01] MEDS: LEVOTHYROXINE 75 MCG TABLET PO SCH (08:15)
[2017-08-01] MEDS: ENOXAPARIN 30 MG/0.3 ML SYRINGE SUBQ SCH (09:05)
[2017-08-01] MEDS: POLYETHYLENE GLYCOL 3350 17 GM PACKET PO SCH (09:07)
[2017-08-01] MEDS: LEVALBUTEROL 1.25 MG/3 ML NEB INH PRN ×2 (10:01→14:33)
[2017-08-01 13:49] LABS: ABG PCO2 29 mmHg (34-45); ABG PH 7.44 (7.35-7.45)
[2017-08-01 13:50] LABS: ABG BASE EXCESS -3.9 mmol/L (-2.0-3.0); ABG HCO3 19.2 mmol/L (22.0-26.0); ABG OXYGEN SATURATION 94 % (94-98); ABG PO2 66 mmHg (80-100); ABG TCO2 20.1 MMOL/L (21.0-29.0); ALLEN TEST POSITIVE
[2017-08-01] MEDS: oxyCODONE 5 MG TABLET PO SCH ×2 (16:39→19:51)
[2017-08-01] MEDS: cefTRIAXone 1 GM in SODIUM CHLORIDE 0.9% MINIBAG 100 ML IV SCH (16:39)
[2017-08-02] MEDS: SODIUM CHLORIDE 0.9% 1,000 ML IV SCH ×3 (01:41→19:49)
[2017-08-02] MEDS: SODIUM CHLORIDE FLUSH 0.9% 10 ML SYRINGE IVP SCH ×3 (01:41→22:19)
[2017-08-02 04:26] LABS: BASOPHILS % (AUTO) 0.2 %; EOSINOPHILS % (AUTO) 0.7 %; HGB - HEMOGLOBIN 9.5 g/dL (12.0-16.0); LYMPHOCYTES % (AUTO) 3.4 %; MEAN CORPUSCULAR HEMOGLOBIN 32.9 pg (27.0-31.0); MEAN CORPUSCULAR HGB CONC 34.1 g/dL (32.0-36.0); MEAN CORPUSCULAR VOLUME 96.5 fL (81.0-99.0); MEAN PLATELET VOLUME 7.9 fL (7.9-10.8); MONOCYTES % (AUTO) 2.3 %; NEUTROPHILS % (AUTO) 93.4 %; PLT - PLATELET COUNT 160 10^3/uL (130-450); RED CELL DISTRIBUTION WIDTH 13.5 % (12.0-15.0); WHITE BLOOD COUNT 10.3 x10^3/uL (4.8-10.8)
[2017-08-02 04:30] LABS: ABNORMAL LYMPHS % (MANUAL) 0 %
[2017-08-02 04:35] LABS: ALBUMIN 2.2 g/dL (3.2-5.5); ALBUMIN/GLOBULIN RATIO 0.6 (1.0-2.2); BILIRUBIN,TOTAL 0.7 mg/dL (0.2-1.0); CREATININE 1.3 mg/dL (0.4-1.0); TOTAL PROTEIN 5.6 g/dL (6.7-8.2)
[2017-08-02 05:02] LABS: BAND NEUTROPHILS % (MANUAL) 22 %; DIFFERENTIAL COMMENT MANUAL DIFFERENTIAL; LYMPHOCYTES # (MANUAL) 0.6 10^3/uL (1.5-3.5); LYMPHOCYTES % (MANUAL) 6 %; MONOCYTES # (MANUAL) 0.1 10^3/uL (0.0-1.0); NEUTROPHILS # (MANUAL) 9.6 10^3/uL (1.5-6.6); NEUTROPHILS % (MANUAL) 71 %; PLATELET ESTIMATE, MANUAL NORMAL (130-450,000) (NORMAL); RBC MORPHOLOGY (MULTIPLE) NORMAL APPEARANCE (NORMAL)
[2017-08-02] MEDS: LEVOTHYROXINE 75 MCG TABLET PO SCH (06:05)
[2017-08-02] MEDS: LEVOTHYROXINE 100 MCG TABLET PO SCH (06:05)
[2017-08-02] MEDS: ENOXAPARIN 30 MG/0.3 ML SYRINGE SUBQ SCH (08:18)
[2017-08-02] MEDS: oxyCODONE 5 MG TABLET PO SCH ×4 (08:18→22:14)
[2017-08-02] MEDS: POLYETHYLENE GLYCOL 3350 17 GM PACKET PO SCH (08:21)
[2017-08-02] MEDS: LEVALBUTEROL 1.25 MG/3 ML NEB INH PRN ×2 (09:38→19:00)
[2017-08-02] MEDS: POTASSIUM CHLORIDE 20 MEQ TABLET PO SCH (10:54)
--- NOTE | 2017-08-02 12:41 | PROVIDER PROGRESS NOTE ---
Subjective - Prog Note Date Prog Note Date: 08/02/17 Prog Note Time: 12:40 - Subjective Pt reports feeling: Improved Subjective: Nathalia has no complaints and has improved mentation. Caregiver came to visit. She denies chest pain, N/V or a new cough. She continues on high flow oxygen that is slowly being weaned. Current Medications - Current Medications Current Medications: Active Medications Acetaminophen (Tylenol) 650 mg PO Q4HR PRN PRN Reason: Pain or Fever > 38C (100.4F) Last Admin: 08/01/17 16:39 Dose: 650 mg Enoxaparin Sodium (Lovenox) 30 mg SUBQ DAILY [facility] Last Admin: 08/02/17 08:18 Dose: 30 mg Ceftriaxone Sodium 1 gm/ (Sodium Chloride) 100 mls @ 200 mls/hr IV DAILY@1700 [facility] Last Infusion: 08/02/17 17:30 Dose: Infused Acetaminophen (Ofirmev) 100 mls @ 400 mls/hr IV Q6HR PRN PRN Reason: PAIN Levalbuterol HCl (Xopenex) 1.25 mg INH RTQ4H PRN PRN Reason: WHEEZING/SOA Last Admin: 08/02/17 19:00 Dose: 1.25 mg Levothyroxine Sodium (Synthroid) 75 mcg PO QDAC [facility] Last Admin: 08/02/17 06:05 Dose: 75 mcg Levothyroxine Sodium (Synthroid) 100 mcg PO QDAC [facility] Last Admin: 08/02/17 06:05 Dose: 100 mcg Metoprolol Tartrate (Lopressor Inj) 5 mg IVP Q6H PRN PRN Reason: Tachycardia Oxycodone HCl (Roxicodone) 5 mg PO QID [facility] Last Admin: 08/02/17 16:31 Dose: 5 mg Polyethylene Glycol (Miralax) 17 gm PO DAILY [facility] Last Admin: 08/02/17 08:21 Dose: Not Given Potassium Chloride (K-Dur) 40 meq PO DAILYWM [facility] Last Admin: 08/02/17 10:54 Dose: 40 meq Sodium Chloride (Normal Saline Flush 0.9%) 10 ml IVP PRN PRN PRN Reason: NEEDED PER PROVIDER ORDERS Sodium Chloride (Normal Saline Flush 0.9%) 10 ml IVP Q8HR [facility] Last Admin: 08/02/17 15:58 Dose: Not Given Cholecalciferol (Vitamin D3) [Vitamin D] 3,000 units PO DAILY 12/16/13 Fluoxetine HCl 40 mg PO DAILY 12/16/13 Levothyroxine Sodium [Levoxyl] 175 mcg PO QDAC 12/16/13 Naproxen [Naprosyn] 500 mg PO BID PRN 12/16/13 Calcium Carbonate 600 mg PO BID 07/31/17 Diphenoxylate HCl/Atropine [Diphenoxylate-Atrop 2.5-0.025] 1 tab PO Q6H PRN Losartan [Cozaar] 50 mg PO DAILY 07/31/17 Simvastatin [Simvastatin] 40 mg PO QPM 07/31/17 oxyCODONE [Roxicodone] 5 mg PO QID 07/31/17 Objective - Vital Signs/Intake & Output Reviewed Vital Signs: Yes Vital Signs: Vital Signs x48h Temp Pulse Pulse Resp BP Pulse Ox 08/02/17 09:38 98 20 08/02/17 09:00 37.1 C 109 H 24 117/54 L 95 Intake & Output: Intake & Output 07/30/17 07/31/17 08/01/17 08/02/17 23:59 23:59 23:59 23:59 Intake Total 950 3886.667 200 Output Total 250 200 Balance 950 3636.667 0 - Objective General Appearance: positive: No acute distress, Alert, Anxious, Lethargic Eyes Bilateral: positive: Normal inspection, PERRL ENT: positive: ENT inspection nml, Pharynx nml, Dry mucous membranes Neck: positive: Nml inspection, Thyroid nml, No JVD, Trachea midline, Stiff neck Respiratory: positive: Chest non-tender, No respiratory distress, Wheezes, Rales Cardiovascular: positive: No gallop, Irregularly irregular, Systolic murmur, Decreased pulse(s) Peripheral Pulses: 2+ Radial (R), 2+ Radial (L) Abdomen: positive: Non-tender, No organomegaly, Nml bowel sounds, No distention Back: positive: Nml inspection Skin: positive: No rash, Warm, Dry Extremities: positive: Non-tender, Full ROM, Nml appearance, Pedal edema Neurologic/Psychiatric: positive: Disoriented to time, Weakness, Sensory loss, Depressed mood/affect Reflexes: Bicep (R): 2+, Bicep (L): 2+ - Lab Results Fish Bones: 08/02/17 04:05 08/02/17 04:05 Other Labs: Lab Results x24hrs 08/02/17 08/02/17 08/02/17 Range/Units 04:05 04:05 04:05 WBC (4.8-10.8) x10^3/uL RBC (4.20-5.40) 10^6/uL Hgb (12.0-16.0) g/dL Hct (37.0-47.0) % MCV (81.0-99.0) fL MCH (27.0-31.0) pg MCHC (32.0-36.0) g/dL RDW (12.0-15.0) % Plt Count (130-450) 10^3/uL MPV (7.9-10.8) fL Neut # Lymph # Ford # Eos # Baso # Absolute Nucleated RBC Total Counted Band Neuts % (Manual) (0 - 10) % Abnorm Lymph % (Manual) % Nucleated RBC % Neutrophils # (Manual) (1.5-6.6) 10^3/uL Lymphocytes # (Manual) (1.5-3.5) 10^3/uL Monocytes # (Manual) (0.0-1.0) 10^3/uL Eosinophils # (Manual) (0-0.7) 10^3/uL Basophils # (Manual) (0-0.1) 10^3/uL Differential Comment Platelet Estimate (NORMAL) RBC Morph Micro Appear (NORMAL) Bld Gas Analysis Time Sample Site ABG pH (7.35-7.45) ABG pCO2 (34-45) mmHg ABG pO2 (80-100) mmHg ABG HCO3 (22.0-26.0) mmol/L ABG Total CO2 (21.0-29.0) MMOL/L ABG O2 Saturation (94-98) % ABG Oximetry Spot Check % ABG Base Excess (-2.0-3.0) mmol/L Felipe Test O2 Delivery Device O2 Liters/Min LPM FiO2 Sodium 137 (135-145) mmol/L Potassium 3.0 L (3.5-5.0) mmol/L Chloride 109 (101-111) mmol/L Carbon Dioxide 17 L (21-32) mmol/L Anion Gap 11.0 (6-13) BUN 36 H (6-20) mg/dL Creatinine 1.3 H (0.4-1.0) mg/dL Estimated GFR (MDRD) 40 L (>89) Glucose 99 (70-100) mg/dL Lactic Acid 0.9 (0.5-2.2) mmol/L Calcium 8.0 L (8.5-10.3) mg/dL Total Bilirubin 0.7 (0.2-1.0) mg/dL AST 31 (10-42) IU/L ALT 28 (10-60) IU/L Alkaline Phosphatase 78 (42-121) IU/L Troponin I < 0.04 (<0.49) ng/mL Total Protein 5.6 L (6.7-8.2) g/dL Albumin 2.2 L (3.2-5.5) g/dL Globulin 3.4 (2.1-4.2) g/dL Albumin/Globulin Ratio 0.6 L (1.0-2.2) 08/02/17 08/01/17 Range/Units 04:05 13:41 WBC 10.3 (4.8-10.8) x10^3/uL RBC 2.90 L (4.20-5.40) 10^6/uL Hgb 9.5 L (12.0-16.0) g/dL Hct 27.9 L (37.0-47.0) % MCV 96.5 (81.0-99.0) fL MCH 32.9 H (27.0-31.0) pg MCHC 34.1 (32.0-36.0) g/dL RDW 13.5 (12.0-15.0) % Plt Count 160 (130-450) 10^3/uL MPV 7.9 (7.9-10.8) fL Neut # Not Reportable Lymph # Not Reportable Ford # Not Reportable Eos # Not Reportable Baso # Not Reportable Absolute Nucleated RBC Not Reportable Total Counted 100 Band Neuts % (Manual) 22 H (0 - 10) % Abnorm Lymph % (Manual) 0 % Nucleated RBC % Not Reportable Neutrophils # (Manual) 9.6 H (1.5-6.6) 10^3/uL Lymphocytes # (Manual) 0.6 L (1.5-3.5) 10^3/uL Monocytes # (Manual) 0.1 (0.0-1.0) 10^3/uL Eosinophils # (Manual) 0.0 (0-0.7) 10^3/uL Basophils # (Manual) 0.0 (0-0.1) 10^3/uL Differential Comment MANUAL DIFFERENTIAL Platelet Estimate NORMAL (130-450,000) (NORMAL) RBC Morph Micro Appear NORMAL APPEARANCE (NORMAL) Bld Gas Analysis Time 13:41 Sample Site RIGHT BRACHIAL ABG pH 7.44 (7.35-7.45) ABG pCO2 29 L (34-45) mmHg ABG pO2 66 L (80-100) mmHg ABG HCO3 19.2 L (22.0-26.0) mmol/L ABG Total CO2 20.1 L (21.0-29.0) MMOL/L ABG O2 Saturation 94 (94-98) % ABG Oximetry Spot Check 96 % ABG Base Excess -3.9 L (-2.0-3.0) mmol/L Felipe Test POSITIVE O2 Delivery Device HEATED H.F. N/C O2 Liters/Min 35.00 LPM FiO2 50.00 Sodium (135-145) mmol/L Potassium (3.5-5.0) mmol/L Chloride (101-111) mmol/L Carbon Dioxide (21-32) mmol/L Anion Gap (6-13) BUN (6-20) mg/dL Creatinine (0.4-1.0) mg/dL Estimated GFR (MDRD) (>89) Glucose (70-100) mg/dL Lactic Acid (0.5-2.2) mmol/L Calcium (8.5-10.3) mg/dL Total Bilirubin (0.2-1.0) mg/dL AST (10-42) IU/L ALT (10-60) IU/L Alkaline Phosphatase (42-121) IU/L Troponin I (<0.49) ng/mL Total Protein (6.7-8.2) g/dL Albumin (3.2-5.5) g/dL Globulin (2.1-4.2) g/dL Albumin/Globulin Ratio (1.0-2.2) - Diagnostic Imaging Diagnostic Imaging Results: positive: Prelim report reviewed Assessment/Plan - Problem List (1) Dehydration Impression: Per conversation with caregiver upon admission, patient had at least a 3 day history prior to admission of very poor PO intake and appeared to have dry mucous membranes. At the time of admission, patient had low sodium, elevated creatinine of 2.1 and altered mental status which all suggest ongoing dehydration. Plan: Monitor vital signs. Continuous IVFs are discontinued today since patient was eating more. Monitor urine output, mucous membranes and LOC. (2) Right upper lobe pneumonia Impression: A 2 view chest x-ray was taken when patient arrived in the ED. X-ray revealed a RUL pneumonia/consolidation, also suspicious for malignancy. Plan: Treat with IV antibiotics, attempt to obtain a sputum sample, and RT therapy with nebulizers as needed. (3) Hypoxia Impression: Patient does not wear chronic oxygen at home. Upon arrival to ED, patient was found to be hypoxic with oxygen saturations in the 80's. Plan: Continue high-flow O2 with RT, that was weaned only slightly today. Continue incentive spirometer, and to chairs for meals (4) Weakness Impression: Per caregiver report at the time of admission, patient had a least 2 episodes of falls without sentinel injury. Patient appears weak at he time of admission. Suspected due to infection or underlying cause of falls. Plan: Monitor weights, mental status and PT evaluation will be ordered.
[2017-08-02] MEDS ORDERED: IOPAMIDOL-300 100 ML VIAL ONE (14:16)
[2017-08-02] MEDS ORDERED: IOPAMIDOL-300 100 ML VIAL IVP ONE (14:49)
[2017-08-02] MEDS: cefTRIAXone 1 GM in SODIUM CHLORIDE 0.9% MINIBAG 100 ML IV SCH (16:31)
--- NOTE | 2017-08-02 17:29 | CT Report ---
DATE OF SERVICE: 08/02/2017 CT CHEST WITH CONTRAST: 08/02/2017 CLINICAL INDICATION: Infiltrates, question malignancy. TECHNIQUE: Axial CT images of the chest were obtained with 40 mL Isovue 300 intravenously. In accordance with CT protocol optimization, one or more of the following dose reduction techniques were utilized for this exam: Automated exposure control, adjustment of mA and/or KV based on patient size, or use of iterative reconstructive technique. COMPARISON: 09/08/2014 FINDINGS: The heart and great vessels demonstrate atherosclerotic calcifications. Small mediastinal lymph nodes are seen, which do not reach size criteria for lymphadenopathy. There is extensive infiltrate in the posterior right upper lobe and superior segment of the right lower lobe, with a small right effusion. Trace left effusion is also present. No pneumothorax. Osseous structures demonstrate degenerative changes. Limited evaluation of upper abdominal structures demonstrates normal adrenal glands. IMPRESSION: EXTENSIVE INFILTRATE IN THE POSTERIOR RIGHT UPPER LOBE AND SUPERIOR SEGMENT OF THE RIGHT LOWER LOBE. SMALL RIGHT EFFUSION AND TRACE LEFT EFFUSION. FOLLOWUP IMAGING FOLLOWING APPROPRIATE ANTIBIOTIC THERAPY IS RECOMMENDED TO EXCLUDE AN UNDERLYING MASS LESION. TD: 08/02/2017 17:27
[2017-08-02] MEDS ORDERED: SODIUM CHLORIDE FLUSH 0.9% 10 ML SYRINGE ONE (22:30)
[2017-08-03] MEDS: SODIUM CHLORIDE FLUSH 0.9% 10 ML SYRINGE IVP SCH ×3 (05:32→16:34)
[2017-08-03 05:41] LABS: EOSINOPHILS # (AUTO) 0.2 10^3/uL (0.0-0.7); HGB - HEMOGLOBIN 9.1 g/dL (12.0-16.0); MONOCYTES # (AUTO) 0.3 10^3/uL (0.0-1.0); NEUTROPHILS # (AUTO) 10.5 10^3/uL (1.5-6.6)
[2017-08-03 05:50] LABS: ALBUMIN 1.9 g/dL (3.2-5.5); ALBUMIN/GLOBULIN RATIO 0.5 (1.0-2.2); BILIRUBIN,TOTAL 0.6 mg/dL (0.2-1.0); CALCIUM 8.6 mg/dL (8.5-10.3); TOTAL PROTEIN 5.7 g/dL (6.7-8.2)
[2017-08-03 05:54] LABS: BASOPHILS % (AUTO) 0.1 %; EOSINOPHILS % (AUTO) 1.5 %; LYMPHOCYTES # (AUTO) 0.6 10^3/uL (1.5-3.5); LYMPHOCYTES % (AUTO) 5.2 %; MEAN CORPUSCULAR HEMOGLOBIN 31.2 pg (27.0-31.0); MEAN CORPUSCULAR HGB CONC 32.5 g/dL (32.0-36.0); MEAN CORPUSCULAR VOLUME 96.2 fL (81.0-99.0); MEAN PLATELET VOLUME 7.7 fL (7.9-10.8); MONOCYTES % (AUTO) 2.8 %; NEUTROPHILS % (AUTO) 90.4 %; PLT - PLATELET COUNT 183 10^3/uL (130-450); RED BLOOD COUNT 2.91 10^6/uL (4.20-5.40); RED CELL DISTRIBUTION WIDTH 13.8 % (12.0-15.0); WHITE BLOOD COUNT 11.7 x10^3/uL (4.8-10.8)
[2017-08-03] MEDS: LEVOTHYROXINE 75 MCG TABLET PO SCH (06:46)
[2017-08-03] MEDS: LEVOTHYROXINE 100 MCG TABLET PO SCH (06:46)
[2017-08-03] MEDS: LEVALBUTEROL 1.25 MG/3 ML NEB INH PRN (07:25)
[2017-08-03] MEDS: POLYETHYLENE GLYCOL 3350 17 GM PACKET PO SCH (08:08)
[2017-08-03] MEDS: oxyCODONE 5 MG TABLET PO SCH ×4 (08:10→21:00)
[2017-08-03] MEDS: POTASSIUM CHLORIDE 20 MEQ TABLET PO SCH (08:10)
[2017-08-03] MEDS: ENOXAPARIN 30 MG/0.3 ML SYRINGE SUBQ SCH (08:11)
--- NOTE | 2017-08-03 08:53 | PROVIDER PROGRESS NOTE ---
Subjective - Prog Note Date Prog Note Date: 08/03/17 Prog Note Time: 08:53 - Subjective Pt reports feeling: Improved Subjective: Nathalia requests to remove oxygen as it is uncomfortable. She denies chest pain, SOB, N/V or a new cough. Her breathing efforts have improved. Current Medications - Current Medications Current Medications: Active Medications Acetaminophen (Tylenol) 650 mg PO Q4HR PRN PRN Reason: Pain or Fever > 38C (100.4F) Last Admin: 08/01/17 16:39 Dose: 650 mg Enoxaparin Sodium (Lovenox) 30 mg SUBQ DAILY [facility] Last Admin: 08/03/17 08:11 Dose: 30 mg Ceftriaxone Sodium 1 gm/ (Sodium Chloride) 100 mls @ 200 mls/hr IV DAILY@1700 [facility] Last Infusion: 08/03/17 17:12 Dose: Infused Acetaminophen (Ofirmev) 100 mls @ 400 mls/hr IV Q6HR PRN PRN Reason: PAIN Levalbuterol HCl (Xopenex) 1.25 mg INH RTQ4H PRN PRN Reason: WHEEZING/SOA Last Admin: 08/03/17 07:25 Dose: 1.25 mg Levothyroxine Sodium (Synthroid) 75 mcg PO QDAC [facility] Last Admin: 08/04/17 06:25 Dose: 75 mcg Levothyroxine Sodium (Synthroid) 100 mcg PO QDAC [facility] Last Admin: 08/04/17 06:25 Dose: 100 mcg Metoprolol Tartrate (Lopressor Inj) 5 mg IVP Q6H PRN PRN Reason: Tachycardia Nystatin (Mycostatin) 5 ml PO QID [facility] Last Admin: 08/03/17 21:02 Dose: 5 ml Oxycodone HCl (Roxicodone) 5 mg PO QID [facility] Last Admin: 08/03/17 21:00 Dose: 5 mg Polyethylene Glycol (Miralax) 17 gm PO DAILY [facility] Last Admin: 08/03/17 08:08 Dose: Not Given Potassium Chloride (K-Dur) 40 meq PO DAILYWM [facility] Last Admin: 08/03/17 08:10 Dose: 40 meq Sodium Chloride (Normal Saline Flush 0.9%) 10 ml IVP PRN PRN PRN Reason: NEEDED PER PROVIDER ORDERS Sodium Chloride (Normal Saline Flush 0.9%) 10 ml IVP Q8HR [facility] Last Admin: 08/04/17 06:25 Dose: 10 ml Cholecalciferol (Vitamin D3) [Vitamin D] 3,000 units PO DAILY 12/16/13 Fluoxetine HCl 40 mg PO DAILY 12/16/13 Levothyroxine Sodium [Levoxyl] 175 mcg PO QDAC 12/16/13 Naproxen [Naprosyn] 500 mg PO BID PRN 12/16/13 Calcium Carbonate 600 mg PO BID 07/31/17 Diphenoxylate HCl/Atropine [Diphenoxylate-Atrop 2.5-0.025] 1 tab PO Q6H PRN Losartan [Cozaar] 50 mg PO DAILY 07/31/17 Simvastatin [Simvastatin] 40 mg PO QPM 07/31/17 oxyCODONE [Roxicodone] 5 mg PO QID 07/31/17 Objective - Vital Signs/Intake & Output Reviewed Vital Signs: Yes Vital Signs: Vital Signs x48h Temp Pulse Pulse Resp BP Pulse Ox 08/03/17 07:25 84 20 08/03/17 04:01 37.1 C 90 20 160/77 H 95 Intake & Output: Intake & Output 07/31/17 08/01/17 08/02/17 08/03/17 23:59 23:59 23:59 23:59 Intake Total 950 3886.667 2279 Output Total 250 200 200 Balance 950 3636.667 2079 -200 - Objective General Appearance: positive: No acute distress, Alert Eyes Bilateral: positive: Normal inspection Eyes: OU Conjunctivae pale ENT: positive: ENT inspection nml, Pharynx nml, Dry mucous membranes Neck: positive: Nml inspection, Thyroid nml, No JVD, Trachea midline Respiratory: positive: Chest non-tender, No respiratory distress, Wheezes, Rhonchi Cardiovascular: positive: No gallop, Irregularly irregular, Systolic murmur Peripheral Pulses: 2+ Radial (R), 2+ Radial (L) Abdomen: positive: Non-tender, No organomegaly, Nml bowel sounds, No distention Back: positive: Nml inspection Skin: positive: No rash, Warm, Dry Extremities: positive: Non-tender, Full ROM, Pedal edema (mild) Neurologic/Psychiatric: positive: Disoriented to time, Weakness, Sensory loss, Depressed mood/affect Reflexes: Bicep (R): 2+, Bicep (L): 2+ - Lab Results Fish Bones: 08/04/17 04:50 08/04/17 04:50 Other Labs: Lab Results x24hrs 08/03/17 08/03/17 08/03/17 Range/Units 05:30 05:30 05:30 WBC (4.8-10.8) x10^3/uL RBC (4.20-5.40) 10^6/uL Hgb (12.0-16.0) g/dL Hct (37.0-47.0) % MCV (81.0-99.0) fL MCH (27.0-31.0) pg MCHC (32.0-36.0) g/dL RDW (12.0-15.0) % Plt Count (130-450) 10^3/uL MPV (7.9-10.8) fL Neut # (1.5-6.6) 10^3/uL Lymph # (1.5-3.5) 10^3/uL Ida # (0.0-1.0) 10^3/uL Eos # (0.0-0.7) 10^3/uL Baso # (0.0-0.1) 10^3/uL Absolute Nucleated RBC x10^3/uL Nucleated RBC % /100WBC Sodium 137 (135-145) mmol/L Potassium 3.4 L (3.5-5.0) mmol/L Chloride 109 (101-111) mmol/L Carbon Dioxide 17 L (21-32) mmol/L Anion Gap 11.0 (6-13) BUN 23 H (6-20) mg/dL Creatinine 1.0 (0.4-1.0) mg/dL Estimated GFR (MDRD) 54 L (>89) Glucose 89 (70-100) mg/dL Lactic Acid 0.6 (0.5-2.2) mmol/L Calcium 8.6 (8.5-10.3) mg/dL Total Bilirubin 0.6 (0.2-1.0) mg/dL AST 40 (10-42) IU/L ALT 31 (10-60) IU/L Alkaline Phosphatase 99 (42-121) IU/L Troponin I < 0.04 (<0.49) ng/mL Total Protein 5.7 L (6.7-8.2) g/dL Albumin 1.9 L (3.2-5.5) g/dL Globulin 3.8 (2.1-4.2) g/dL Albumin/Globulin Ratio 0.5 L (1.0-2.2) 08/03/17 Range/Units 05:30 WBC 11.7 H (4.8-10.8) x10^3/uL RBC 2.91 L (4.20-5.40) 10^6/uL Hgb 9.1 L (12.0-16.0) g/dL Hct 28.0 L (37.0-47.0) % MCV 96.2 (81.0-99.0) fL MCH 31.2 H (27.0-31.0) pg MCHC 32.5 (32.0-36.0) g/dL RDW 13.8 (12.0-15.0) % Plt Count 183 (130-450) 10^3/uL MPV 7.7 L (7.9-10.8) fL Neut # 10.5 H (1.5-6.6) 10^3/uL Lymph # 0.6 L (1.5-3.5) 10^3/uL Ida # 0.3 (0.0-1.0) 10^3/uL Eos # 0.2 (0.0-0.7) 10^3/uL Baso # 0.0 (0.0-0.1) 10^3/uL Absolute Nucleated RBC 0.00 x10^3/uL Nucleated RBC % 0.0 /100WBC Sodium (135-145) mmol/L Potassium (3.5-5.0) mmol/L Chloride (101-111) mmol/L Carbon Dioxide (21-32) mmol/L Anion Gap (6-13) BUN (6-20) mg/dL Creatinine (0.4-1.0) mg/dL Estimated GFR (MDRD) (>89) Glucose (70-100) mg/dL Lactic Acid (0.5-2.2) mmol/L Calcium (8.5-10.3) mg/dL Total Bilirubin (0.2-1.0) mg/dL AST (10-42) IU/L ALT (10-60) IU/L Alkaline Phosphatase (42-121) IU/L Troponin I (<0.49) ng/mL Total Protein (6.7-8.2) g/dL Albumin (3.2-5.5) g/dL Globulin (2.1-4.2) g/dL Albumin/Globulin Ratio (1.0-2.2) - Diagnostic Imaging Diagnostic Imaging Results: positive: Prelim report reviewed, Final report reviewed Assessment/Plan - Problem List (1) Dehydration Impression: Per conversation with caregiver upon admission, patient had at least a 3 day history prior to admission of very poor PO intake and appeared to have dry mucous membranes. At the time of admission, patient had low sodium, elevated creatinine of 2.1 and altered mental status which all suggest ongoing dehydration. Plan: Monitor vital signs. Continuous IVFs are discontinued today since patient was eating more. Monitor urine output, mucous membranes and LOC. (2) Right upper lobe pneumonia Impression: A 2 view chest x-ray was taken when patient arrived in the ED. X-ray revealed a RUL pneumonia/consolidation, also suspicious for malignancy. A CT chest was completed and recommends an additional CT once the pneumonia is cleared as a malignancy is suspicious. Plan: Treat with IV antibiotics, attempt to obtain a sputum sample, and RT therapy with nebulizers as needed. Patient continues on high flow oxygen with attempts to wean. (3) Hypoxia Impression: Patient does not wear chronic oxygen at home. Upon arrival to ED, patient was found to be hypoxic with oxygen saturations in the 80's. Plan: Continue high-flow O2 with RT, that was not weaned today and the patient slept. Continue incentive spirometer, and to chairs for meals. (4) Weakness Impression: Per caregiver report at the time of admission, patient had a least 2 episodes of falls without sentinel injury. Patient appears weak at he time of admission. Suspected due to infection or underlying cause of falls. Plan: Monitor weights, mental status and PT evaluation will be ordered.
[2017-08-03] MEDS: cefTRIAXone 1 GM in SODIUM CHLORIDE 0.9% MINIBAG 100 ML IV SCH (16:33)
[2017-08-03] MEDS: NYSTATIN 500000 UNITS/5 ML UDC PO SCH ×2 (17:02→21:02)
[2017-08-04 05:17] LABS: BASOPHILS % (AUTO) 0.2 %; EOSINOPHILS % (AUTO) 2.4 %; HGB - HEMOGLOBIN 10.2 g/dL (12.0-16.0); LYMPHOCYTES % (AUTO) 7.5 %; MEAN CORPUSCULAR HEMOGLOBIN 32.3 pg (27.0-31.0); MEAN CORPUSCULAR HGB CONC 33.7 g/dL (32.0-36.0); MEAN CORPUSCULAR VOLUME 95.8 fL (81.0-99.0); MEAN PLATELET VOLUME 7.5 fL (7.9-10.8); MONOCYTES % (AUTO) 0.3 %; NEUTROPHILS % (AUTO) 89.6 %; PLT - PLATELET COUNT 165 10^3/uL (130-450); RED BLOOD COUNT 3.17 10^6/uL (4.20-5.40); RED CELL DISTRIBUTION WIDTH 14.2 % (12.0-15.0); WHITE BLOOD COUNT 8.6 x10^3/uL (4.8-10.8)
[2017-08-04 05:24] LABS: ABNORMAL LYMPHS % (MANUAL) 0 %
[2017-08-04 05:55] LABS: ALBUMIN 2.1 g/dL (3.2-5.5); ALBUMIN/GLOBULIN RATIO 0.5 (1.0-2.2); BILIRUBIN,TOTAL 0.9 mg/dL (0.2-1.0); CALCIUM 9.1 mg/dL (8.5-10.3); MAGNESIUM 1.6 mg/dL (1.7-2.8); TOTAL PROTEIN 6.2 g/dL (6.7-8.2)
[2017-08-04 06:11] LABS: BAND NEUTROPHILS % (MANUAL) 5 %; DIFFERENTIAL COMMENT MANUAL DIFFERENTIAL; EOSINOPHILS # (MANUAL) 0.3 10^3/uL (0-0.7); LYMPHOCYTES # (MANUAL) 0.7 10^3/uL (1.5-3.5); LYMPHOCYTES % (MANUAL) 8 %; MONOCYTES # (MANUAL) 0.3 10^3/uL (0.0-1.0); NEUTROPHILS # (MANUAL) 7.4 10^3/uL (1.5-6.6); NEUTROPHILS % (MANUAL) 81 %; PLATELET ESTIMATE, MANUAL NORMAL (130-450,000) (NORMAL); RBC MORPHOLOGY (MULTIPLE) NORMAL APPEARANCE (NORMAL)
[2017-08-04] MEDS: SODIUM CHLORIDE FLUSH 0.9% 10 ML SYRINGE IVP SCH ×3 (06:25→16:39)
[2017-08-04] MEDS: LEVOTHYROXINE 75 MCG TABLET PO SCH (06:25)
[2017-08-04] MEDS: LEVOTHYROXINE 100 MCG TABLET PO SCH (06:25)
--- NOTE | 2017-08-04 08:18 | PROVIDER PROGRESS NOTE ---
Subjective - Prog Note Date Prog Note Date: 08/04/17 Prog Note Time: 08:17 - Subjective Pt reports feeling: Improved Subjective: Nathalia states that she slept well and is feeling more herself. She denies SOB, chest pain, N/V or a new cough. She is interested in returning home. Current Medications - Current Medications Current Medications: Active Medications Acetaminophen (Tylenol) 650 mg PO Q4HR PRN PRN Reason: Pain or Fever > 38C (100.4F) Last Admin: 08/01/17 16:39 Dose: 650 mg Enoxaparin Sodium (Lovenox) 30 mg SUBQ DAILY [facility] Last Admin: 08/03/17 08:11 Dose: 30 mg Ceftriaxone Sodium 1 gm/ (Sodium Chloride) 100 mls @ 200 mls/hr IV DAILY@1700 [facility] Last Infusion: 08/03/17 17:12 Dose: Infused Acetaminophen (Ofirmev) 100 mls @ 400 mls/hr IV Q6HR PRN PRN Reason: PAIN Levalbuterol HCl (Xopenex) 1.25 mg INH RTQ4H PRN PRN Reason: WHEEZING/SOA Last Admin: 08/03/17 07:25 Dose: 1.25 mg Levothyroxine Sodium (Synthroid) 75 mcg PO QDAC [facility] Last Admin: 08/04/17 06:25 Dose: 75 mcg Levothyroxine Sodium (Synthroid) 100 mcg PO QDAC [facility] Last Admin: 08/04/17 06:25 Dose: 100 mcg Metoprolol Tartrate (Lopressor Inj) 5 mg IVP Q6H PRN PRN Reason: Tachycardia Nystatin (Mycostatin) 5 ml PO QID [facility] Last Admin: 08/03/17 21:02 Dose: 5 ml Oxycodone HCl (Roxicodone) 5 mg PO QID [facility] Last Admin: 08/03/17 21:00 Dose: 5 mg Polyethylene Glycol (Miralax) 17 gm PO DAILY [facility] Last Admin: 08/03/17 08:08 Dose: Not Given Potassium Chloride (K-Dur) 40 meq PO DAILYWM [facility] Last Admin: 08/03/17 08:10 Dose: 40 meq Sodium Chloride (Normal Saline Flush 0.9%) 10 ml IVP PRN PRN PRN Reason: NEEDED PER PROVIDER ORDERS Sodium Chloride (Normal Saline Flush 0.9%) 10 ml IVP Q8HR [facility] Last Admin: 08/04/17 06:25 Dose: 10 ml Cholecalciferol (Vitamin D3) [Vitamin D] 3,000 units PO DAILY 12/16/13 Fluoxetine HCl 40 mg PO DAILY 12/16/13 Levothyroxine Sodium [Levoxyl] 175 mcg PO QDAC 12/16/13 Naproxen [Naprosyn] 500 mg PO BID PRN 12/16/13 Calcium Carbonate 600 mg PO BID 07/31/17 Diphenoxylate HCl/Atropine [Diphenoxylate-Atrop 2.5-0.025] 1 tab PO Q6H PRN Losartan [Cozaar] 50 mg PO DAILY 07/31/17 Simvastatin [Simvastatin] 40 mg PO QPM 07/31/17 oxyCODONE [Roxicodone] 5 mg PO QID 07/31/17 Objective - Vital Signs/Intake & Output Reviewed Vital Signs: Yes Vital Signs: Vital Signs x48h Temp Pulse Resp BP Pulse Ox 08/04/17 05:00 37.2 C 88 18 167/82 H 95 Intake & Output: Intake & Output 08/01/17 08/02/17 08/03/17 08/04/17 23:59 23:59 23:59 23:59 Intake Total 3886.667 2279 950 Output Total 250 200 200 Balance 3636.667 2079 750 - Objective General Appearance: positive: No acute distress, Alert Eyes Bilateral: positive: Normal inspection ENT: positive: ENT inspection nml, Pharynx nml, Dry mucous membranes Neck: positive: Nml inspection, Thyroid nml Peripheral Pulses: 2+ Radial (R), 2+ Radial (L) Back: positive: Nml inspection Skin: positive: Color nml, No rash, Warm, Dry Extremities: positive: Non-tender, Full ROM, Nml appearance, No pedal edema Neurologic/Psychiatric: positive: Disoriented to time, Weakness, Sensory loss, Depressed mood/affect Reflexes: Bicep (R): 3+, Bicep (L): 3+ - Lab Results Fish Bones: 08/04/17 04:50 08/04/17 04:50 Other Labs: Lab Results x24hrs 08/04/17 08/04/17 Range/Units 04:50 04:50 WBC 8.6 (4.8-10.8) x10^3/uL RBC 3.17 L (4.20-5.40) 10^6/uL Hgb 10.2 L (12.0-16.0) g/dL Hct 30.3 L (37.0-47.0) % MCV 95.8 (81.0-99.0) fL MCH 32.3 H (27.0-31.0) pg MCHC 33.7 (32.0-36.0) g/dL RDW 14.2 (12.0-15.0) % Plt Count 165 (130-450) 10^3/uL MPV 7.5 L (7.9-10.8) fL Neut # Not Reportable Lymph # Not Reportable [place] # Not Reportable Eos # Not Reportable Baso # Not Reportable Absolute Nucleated RBC Not Reportable Total Counted 100 Band Neuts % (Manual) 5 (0 - 10) % Abnorm Lymph % (Manual) 0 % Nucleated RBC % Not Reportable Neutrophils # (Manual) 7.4 H (1.5-6.6) 10^3/uL Lymphocytes # (Manual) 0.7 L (1.5-3.5) 10^3/uL Monocytes # (Manual) 0.3 (0.0-1.0) 10^3/uL Eosinophils # (Manual) 0.3 (0-0.7) 10^3/uL Basophils # (Manual) 0.0 (0-0.1) 10^3/uL Differential Comment MANUAL DIFFERENTIAL Platelet Estimate NORMAL (130-450,000) (NORMAL) RBC Morph Micro Appear NORMAL APPEARANCE (NORMAL) Sodium 138 (135-145) mmol/L Potassium 4.5 (3.5-5.0) mmol/L Chloride 111 (101-111) mmol/L Carbon Dioxide 19 L (21-32) mmol/L Anion Gap 8.0 (6-13) BUN 20 (6-20) mg/dL Creatinine 1.0 (0.4-1.0) mg/dL Estimated GFR (MDRD) 54 L (>89) Glucose 93 (70-100) mg/dL Calcium 9.1 (8.5-10.3) mg/dL Magnesium 1.6 L (1.7-2.8) mg/dL Total Bilirubin 0.9 (0.2-1.0) mg/dL AST 54 H (10-42) IU/L ALT 35 (10-60) IU/L Alkaline Phosphatase 120 (42-121) IU/L Total Protein 6.2 L (6.7-8.2) g/dL Albumin 2.1 L (3.2-5.5) g/dL Globulin 4.1 (2.1-4.2) g/dL Albumin/Globulin Ratio 0.5 L (1.0-2.2) - Diagnostic Imaging Diagnostic Imaging Results: positive: Final report reviewed Assessment/Plan - Problem List (1) Dehydration Impression: Per conversation with caregiver upon admission, patient had at least a 3 day history prior to admission of very poor PO intake and appeared to have dry mucous membranes. At the time of admission, patient had low sodium, elevated creatinine of 2.1 and altered mental status which all suggest ongoing dehydration. Creatinine today was normal at 1.0, although mucous membranes still remain dry. Plan: Monitor vital signs. Continuous IVFs are discontinued since patient was eating more. Monitor urine output, mucous membranes and LOC. (2) Right upper lobe pneumonia Impression: A 2 view chest x-ray was taken when patient arrived in the ED. X-ray revealed a RUL pneumonia/consolidation, also suspicious for malignancy. A chest CT was completed, and recommend an additional CT once pneumonia is cleared up. Plan: Treat with IV antibiotics, attempt to obtain a sputum sample, and RT therapy with nebulizers as needed. (3) Hypoxia Impression: Patient does not wear chronic oxygen at home. Upon arrival to ED, patient was found to be hypoxic with oxygen saturations in the 80's. Patient was placed on high flow O2, that was weaned off overnight and patient remains on 2L nasal cannula. Plan: Continue supplemental oxygen. Continue incentive spirometer, and to chairs for meals (4) Weakness Impression: Per caregiver report at the time of admission, patient had a least 2 episodes of falls without sentinel injury. Patient appears weak at he time of admission. Suspected due to infection or underlying cause of falls. Plan: Monitor weights, mental status and PT evaluation will be ordered. Continue to ambulate with nursing staff.
[2017-08-04] MEDS: POTASSIUM CHLORIDE 20 MEQ TABLET PO SCH (09:16)
[2017-08-04] MEDS: ENOXAPARIN 30 MG/0.3 ML SYRINGE SUBQ SCH (09:17)
[2017-08-04] MEDS: POLYETHYLENE GLYCOL 3350 17 GM PACKET PO SCH (09:17)
[2017-08-04] MEDS: NYSTATIN 500000 UNITS/5 ML UDC PO SCH ×4 (09:17→21:19)
[2017-08-04] MEDS: oxyCODONE 5 MG TABLET PO SCH ×4 (09:17→21:19)
[2017-08-04] MEDS: LEVALBUTEROL 1.25 MG/3 ML NEB INH PRN (12:15)
[2017-08-04] MEDS: cefTRIAXone 1 GM in SODIUM CHLORIDE 0.9% MINIBAG 100 ML IV SCH (16:39)
[2017-08-05 05:08] LABS: BASOPHILS % (AUTO) 0.1 %; EOSINOPHILS # (AUTO) 0.2 10^3/uL (0.0-0.7); EOSINOPHILS % (AUTO) 3.1 %; HGB - HEMOGLOBIN 9.3 g/dL (12.0-16.0); LYMPHOCYTES # (AUTO) 0.7 10^3/uL (1.5-3.5); LYMPHOCYTES % (AUTO) 9.4 %; MEAN CORPUSCULAR HEMOGLOBIN 32.4 pg (27.0-31.0); MEAN CORPUSCULAR HGB CONC 34.4 g/dL (32.0-36.0); MEAN CORPUSCULAR VOLUME 94.2 fL (81.0-99.0); MEAN PLATELET VOLUME 7.5 fL (7.9-10.8); MONOCYTES # (AUTO) 0.5 10^3/uL (0.0-1.0); MONOCYTES % (AUTO) 6.7 %; NEUTROPHILS # (AUTO) 6.1 10^3/uL (1.5-6.6); NEUTROPHILS % (AUTO) 80.7 %; PLT - PLATELET COUNT 217 10^3/uL (130-450); RED BLOOD COUNT 2.89 10^6/uL (4.20-5.40); RED CELL DISTRIBUTION WIDTH 13.8 % (12.0-15.0); WHITE BLOOD COUNT 7.5 x10^3/uL (4.8-10.8)
[2017-08-05 05:14] LABS: ALBUMIN 2.1 g/dL (3.2-5.5); ALBUMIN/GLOBULIN RATIO 0.5 (1.0-2.2); BILIRUBIN,TOTAL 0.7 mg/dL (0.2-1.0); CALCIUM 8.8 mg/dL (8.5-10.3); MAGNESIUM 1.5 mg/dL (1.7-2.8); TOTAL PROTEIN 6.2 g/dL (6.7-8.2)
[2017-08-05 05:46] LABS: PLATELET ESTIMATE, MANUAL NORMAL (130-450,000) (NORMAL); PLATELET MORPHOLOGY NORMAL APPEARANCE (NORMAL); RBC MORPHOLOGY (MULTIPLE) NORMAL APPEARANCE (NORMAL)
[2017-08-05] MEDS: SODIUM CHLORIDE FLUSH 0.9% 10 ML SYRINGE IVP SCH (06:21)
[2017-08-05] MEDS: ACETAMINOPHEN 325 MG TABLET PO PRN (06:21)
[2017-08-05] MEDS: LEVOTHYROXINE 100 MCG TABLET PO SCH (06:22)
[2017-08-05] MEDS: LEVOTHYROXINE 75 MCG TABLET PO SCH (06:22)
--- NOTE | 2017-08-05 07:23 | Discharge Plan ---
Discharge Plan Disposition: Home, Self Care Condition: Good Prescriptions: Albuterol Sulfate [Proventil Hfa Inhaler] 1 - 2 puffs INH Q4H PRN #1 inhaler PRN Reason: Shortness Of Air/Wheezing Budesonide/Formoterol Fumarate [Symbicort 80-4.5 Mcg Inhaler] 10.2 gm IH BID #1 hfa.aer.ad Inhaler, Assist Devices [Optichamber Keke] 1 each MC BID #1 spacer levoFLOXacin [Levofloxacin] 500 mg PO DAILY 9 Days #9 tablet Nystatin 100,000 unit PO QID #30 ml Saccharomyces Boulardii [Florastor] 250 mg PO BID 18 Days #36 capsule Diet: Regular Activity Restrictions: No Restrictions Shower Restrictions: No Driving Restrictions: Yes Weight Bearing: Full Weight Additional Instructions or Follow Up instructions: You were admitted for right upper lobe pneumonia. The location of this pneumonia is very concerning for malignancy or cancer OR a very large pneumonia , so a chest CT was completed that showed an extensive pneumonia with normal sized lymph nodes. A repeat chest CT is suggested in ~ 2 weeks. You required a very high level of oxygen for a few days and you were given high flow O2, then as your lungs improved, you needed less. A walking oxygen test will be completed today before you leave. I have added a symbicort inhaler for maintenance of your lung disease. The best thing to do next is to stop smoking and finish your antibiotic course. See your PCP within in one week for a follow up to this hospital stay and he may want to refer you to pulmonology, and you need the CT scan ordered for 2 weeks from now. Follow-Up Care: [facility] - Pulmonary No Smoking: If you smoke, Please STOP! Call for help. Follow-up with: Adalberto Sorensen MD [Primary Care Provider] -
--- NOTE | 2017-08-05 07:24 | DISCHARGE SUMMARY ---
Discharge Summary Admit Date: 07/31/17 Discharge Date: 08/05/17 Discharging Provider: MANUEL Garza Primary Care Provider: Adalberto Sorensen Code Status: Attempt Resuscitation Condition at Discharge: Good Discharge Disposition: 01 Home, Self Care - DIAGNOSES Admission Diagnoses: Dehydration (E86.0) Right upper lobe pneumonia (J18.1) Hypoxia (R09.02) Repeated falls (R29.6) Weakness (R53.1) Discharge Diagnoses with Status of Each Condition: Dehydration (E86.0) resolved. Right upper lobe pneumonia (J18.1) improved, not resolved. Hypoxia (R09.02) improved, patient passed her walking oxygen test, so no home Oxygen was needed. 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 - HPI History of Present Illness: Nathalia Mills is an ill-appearing 77-year old white female with a past medical history of hypertension, hyperlipidemia, COPD, hypothyroidism, chronic diarrhea , depression, and osteoporosis. Patient has a caregiver ~5 days per week and otherwise lives independently. As per phone interview with caregiver, Kingsley Mckeon; Patient admits to her first fall on Saturday (5 days ago) in which she lost her balance while changing the helio litter and sustained a "bump on the head". She also states that she had a 2nd fall on Saturday (3 days ago) and notes that she simply fell on her bottom, but did not want to call for help even though she wears a life alert around her neck. On Saturday AM, the caregiver came to her home and spent the day and at that time first learned of the falls. In addition, the patient stated that she has had a headache ever since her first fall, and thinks she may have lied on the floor for up to 6 hours before making her way to her couch. The caregiver stated that Nathalia had no appetite on Saturday, and when a meal was prepared for her, she did not eat it. On Saturday the caregiver returned and noticed the patient having chills, was still not eating and appeared pale. Today, the caregiver came by and states the patient appeared short of breath, very lethargic, looked even more pale, was still not eating or drinking, and could barely move. She asked the patient's permission to dial 911, and Nathalia agreed with a transfer to the ED. Once in the ED a chest x-ray revealed a RUL infiltrate/consolidation, elevated WBCs, hypotension, tachycardia and hypoxia. A urine sample was obtained and is pending. Additional images included a lumbar spine and a head CT. Patient will be admitted to inpatient for treatment of RUL PNA, AMS, dehydration and electrolyte abnormalities. - HOSPITAL COURSE Hospital Course: The following problems/diagnoses were prevalent during this hospital stay: (1) Dehydration- Per conversation with caregiver upon admission, patient had at least a 3 day history prior to admission of very poor PO intake and appeared to have dry mucous membranes. At the time of admission, patient had low sodium , elevated creatinine of 2.1 and altered mental status which all suggest ongoing dehydration. Patient's vital signs were monitored. Continuous IVFs were given and soon discontinued since patient was eating more. Patient's urine output, mucous membranes and LOC were monitored. (2) Right upper lobe pneumonia- A 2 view chest x-ray was taken when patient arrived in the ED. X-ray revealed a RUL pneumonia/consolidation, also suspicious for malignancy. A chest CT was completed, and recommend an additional CT once pneumonia is cleared up. Patient was treated with IV antibiotics that were transitioned to PO antibiotics on the day of discharge. Attempts to obtain a sputum sample were unsuccessful, and RT therapy with nebulizers as needed were continued. (3) Hypoxia- Patient does not wear chronic oxygen at home. Upon arrival to ED, patient was found to be hypoxic with oxygen saturations in the 80's. Patient was placed on high flow O2, that was weaned off overnight and patient remains on 2L nasal cannula. Patient was given supplemental oxygen, taught the proper use of incentive spirometer, and was encouraged to sit in chairs for meals. At the time of discharge, patient no longer required oxygen and even passed a walking oxygen saturation test. (4) Weakness- Per caregiver report at the time of admission, patient had a least 2 episodes of falls without sentinel injury. Patient appears weak at he time of admission. Suspected due to infection or underlying cause of falls. Patient's weights and mental status were monitored. Patient continued to ambulate with nursing staff and was back at baseline ambulation at the time of discharge. Disposition: Patient was taken by her caregiver via private car. Prescriptions were sent to pharmacy of choice, including a newly prescribed spacer device to be used with LABA/ICS, and or Albuterol rescue inhaler. - ALLERGIES Allergies/Adverse Reactions: Allergies Allergy/AdvReac Type Severity Reaction Status Date / Time No Known Drug Allergies Allergy Verified 02/21/15 10:02 - MEDICATIONS Home Medications: Ambulatory Orders Medication Instructions Recorded Confirmed Cholecalciferol (Vitamin D3) 3,000 units PO DAILY 12/16/13 07/31/17 [Vitamin D3] Fluoxetine HCl 40 mg PO DAILY 12/16/13 07/31/17 Levothyroxine Sodium [Levoxyl] 175 mcg PO QDAC 12/16/13 07/31/17 Naproxen [Naprosyn] 500 mg PO BID PRN 12/16/13 07/31/17 Calcium Carbonate 600 mg PO BID 07/31/17 07/31/17 Diphenoxylate HCl/Atropine 1 tab PO Q6H PRN 07/31/17 07/31/17 [Diphenoxylate-Atrop 2.5-0.025] Losartan [Cozaar] 50 mg PO DAILY 07/31/17 07/31/17 Simvastatin 40 mg PO QPM 07/31/17 07/31/17 oxyCODONE [Roxicodone] 5 mg PO QID 07/31/17 07/31/17 Albuterol Sulfate [Proventil Hfa 1 - 2 puffs INH Q4H PRN #1 inhaler 08/05/17 Inhaler] Budesonide/Formoterol Fumarate 10.2 gm IH BID #1 hfa.aer.ad 08/05/17 [Symbicort 80-4.5 Mcg Inhaler] Inhaler, Assist Devices 1 each MC BID #1 spacer 08/05/17 [Optichamber Keke] Nystatin 100,000 unit PO QID #30 ml 08/05/17 Nystatin 500,000 unit PO QID 14 Days #120 ml 08/05/17 Saccharomyces Boulardii [Florastor] 250 mg PO BID 18 Days #36 capsule 08/05/17 levoFLOXacin [Levofloxacin] 500 mg PO DAILY 9 Days #9 tablet 08/05/17 - PHYSICAL EXAM AT DISCHARGE General Appearance: positive: No acute distress, Alert Eyes Bilateral: positive: Normal inspection, PERRL ENT: positive: ENT inspection nml, Pharynx nml, No signs of dehydration Neck: positive: Nml inspection, Thyroid nml, No JVD, Trachea midline, Stiff neck Respiratory: positive: Chest non-tender, No respiratory distress, Wheezes, Other (diminished, a few scattered crackles on right low base.) Cardiovascular: positive: Regular rate & rhythm, No gallop, Systolic murmur, Decreased pulse(s) Peripheral Pulses: positive: 2+ Abdomen: positive: Non-tender, No organomegaly, Nml bowel sounds, No distention Back: positive: Nml inspection Skin: positive: No rash, Warm, Dry Extremities: positive: Non-tender, Full ROM, Nml appearance, Pedal edema, Joint swelling Neurologic/Psychiatric: positive: Oriented x3, CN's nml (2-12), Motor nml, Sensation nml, Depressed mood/affect, Other (some slow responses.) Reflexes: Bicep (R): 3+, Bicep (L): 3+ - LABS Result Diagrams: 08/05/17 04:34 08/05/17 04:34 - DIAGNOSTIC IMAGING Diagnostic Imaging Results: Final report reviewed Diagnostic Imaging Results Comments: FINDINGS: The heart and great vessels demonstrate atherosclerotic calcifications. Small mediastinal lymph nodes are seen, which do not reach size criteria for lymphadenopathy. There is extensive infiltrate in the posterior right upper lobe and superior segment of the right lower lobe, with a small right effusion. Trace left effusion is also present. No pneumothorax. Osseous structures demonstrate degenerative changes. Limited evaluation of upper abdominal structures demonstrates normal adrenal glands. IMPRESSION: EXTENSIVE INFILTRATE IN THE POSTERIOR RIGHT UPPER LOBE AND SUPERIOR SEGMENT OF THE RIGHT LOWER LOBE. SMALL RIGHT EFFUSION AND TRACE LEFT EFFUSION. FOLLOWUP IMAGING FOLLOWING APPROPRIATE ANTIBIOTIC THERAPY IS RECOMMENDED TO EXCLUDE AN UNDERLYING MASS LESION. - FOLLOW UP Follow Up: Disposition: 01 Home, Self Care Condition: Good Prescriptions: Budesonide/Formoterol Fumarate [Symbicort 80-4.5 Mcg Inhaler] 10.2 gm IH BID #1 hfa.aer.ad levoFLOXacin [Levofloxacin] 500 mg PO DAILY 9 Days #9 tablet Saccharomyces Boulardii [Florastor] 250 mg PO BID 18 Days #36 capsule Diet: Regular Activity Restrictions: No Restrictions Shower Restrictions: No Driving Restrictions: Yes Weight Bearing: Full Weight Additional Instructions or Follow Up instructions: You were admitted for right upper lobe pneumonia. The location of this pneumonia is very concerning for malignancy or cancer, so a chest CT was completed that also confirmed this suspicion. You required a very high level of oxygen for a few days, then as your lung improved, you needed less. A walking oxygen test will be completed today before you leave. I have added a symbicort inhaler for maintenance of your lung disease. The best thing to do next is to stop smoking and finish your antibiotic course. See your PCP within in one week for a pulmonology consult and/or oncology. - TIME SPENT Time Spent in Discharge (Minutes): 45
[2017-08-05] MEDS ORDERED: POTASSIUM CHLORIDE 10 MEQ CAPSULE PO SCH (08:00)
[2017-08-05] MEDS: NYSTATIN 500000 UNITS/5 ML UDC PO SCH (09:46)
[2017-08-05] MEDS: oxyCODONE 5 MG TABLET PO SCH (09:46)
[2017-08-05] MEDS: ENOXAPARIN 30 MG/0.3 ML SYRINGE SUBQ SCH (09:47)
[2017-08-05] MEDS: POLYETHYLENE GLYCOL 3350 17 GM PACKET PO SCH (09:48)
[2017-08-05 12:05] VITALS: BP 136/68
== END 2017-08-05 12:15 | disposition home or self-care (01) | DRG 195 ==
LOC: EDUNIT# → ED 11:42 → MS3 16:28
PROVIDERS: ADMIT Nurse Practitioner; ATTEND Nurse Practitioner
DX: J18.1 Lobar pneumonia, unspecified organism (principal); E86.0 Dehydration; R53.1 Weakness; J44.9 Chronic obstructive pulmonary disease, unspecified; R09.02 Hypoxemia; F17.210 Nicotine dependence, cigarettes, uncomplicated; S09.90XA Unspecified injury of head, initial encounter; W18.39XA Other fall on same level, initial encounter; I10 Essential (primary) hypertension; E78.5 Hyperlipidemia, unspecified; E03.9 Hypothyroidism, unspecified; K52.9 Noninfective gastroenteritis and colitis, unspecified; F32.9 Major depressive disorder, single episode, unspecified; M81.0 Age-related osteoporosis without current pathological fracture; H91.90 Unspecified hearing loss, unspecified ear; M47.896 Other spondylosis, lumbar region; Z91.81 History of falling; Y92.009 Unspecified place in unspecified non-institutional (private) residence as the place of occurrence of the external cause; Z79.51 Long term (current) use of inhaled steroids; Z79.891 Long term (current) use of opiate analgesic; Z79.899 Other long term (current) drug therapy
CPT/HCPCS: 36415; 36600; 70450; 71046; 71260; 72100; 80048; 80053; 80306; 80320; 81001; 81003; 82550; 82803; 83605; 83690; 83735; 84443; 84484; 85025; 85651; 86140; 87040; 87086; 93005; 93306; 94640; 96361; 96365; 99284; 99285

== ENCOUNTER 2017-09-03 11:44 | Outpatient (CLI) | payer MEDICARE, MEDICAID ==
--- NOTE | 2017-09-03 15:42 | CT Report ---
CT CHEST WITHOUT CONTRAST: 09/03/2017 CLINICAL INDICATION: Follow up right-sided pneumonia. COMPARISON: Chest x-ray 08/22/2017, chest CT 08/02/2017, chest x-ray 07/31/2017. TECHNIQUE: Axial CT images of the chest were obtained without intravenous contrast. FINDINGS: The heart and great vessels demonstrate atherosclerotic calcifications. No hilar or mediastinal lymphadenopathy is present. There has been significant interval improvement in right upper and lower lobe infiltrates from previous CT of 08/02/2017. Nodularity questioned on chest x-ray of 08/22/[address] No effusion or pneumothorax is present. Limited evaluation of upper abdominal structures demonstrates normal adrenal glands. Osseous structures demonstrate degenerative changes. Previously seen pleural effusions have resolved. IMPRESSION: SIGNIFICANT INTERVAL IMPROVEMENT IN RIGHT UPPER AND LOWER LOBE INFILTRATES. RESOLUTION OF PLEURAL EFFUSIONS. NO DEFINITE PULMONARY NODULE OR MASS LESION IS APPRECIATED IN THE RIGHT UPPER LOBE, AT THE SITE QUESTIONED ON CHEST X-RAY OF 08/22/2017. CT DOSE REDUCTION STATEMENT In accordance with CT protocol optimization, one or more of the following dose reduction techniques were utilized for this exam: automated exposure control, adjustment of mA and/or KV based on patient size, or use of iterative reconstructive technique. TD: 09/03/2017 15:41
== END 2017-09-03 11:45 | disposition home or self-care (01) ==
LOC: DI 11:44
PROVIDERS: ATTEND Family Medicine
DX: J18.9 Pneumonia, unspecified organism (principal)
CPT/HCPCS: 71250

== ENCOUNTER 2018-11-12 14:38 | Outpatient (CLI) | payer MEDICARE, MEDICAID ==
[2018-11-12 18:49] LABS: BASOPHILS % (AUTO) 0.6 %; EOSINOPHILS # (AUTO) 0.3 10^3/uL (0.0-0.7); HGB - HEMOGLOBIN 12.5 g/dL (12.0-16.0); LYMPHOCYTES # (AUTO) 1.1 10^3/uL (1.5-3.5); LYMPHOCYTES % (AUTO) 22.8 %; MEAN CORPUSCULAR HEMOGLOBIN 32.3 pg (27.0-31.0); MEAN CORPUSCULAR HGB CONC 32.6 g/dL (32.0-36.0); MONOCYTES # (AUTO) 0.4 10^3/uL (0.0-1.0); MONOCYTES % (AUTO) 7.7 %; NEUTROPHILS # (AUTO) 3.1 10^3/uL (1.5-6.6); NEUTROPHILS % (AUTO) 62.9 %; PLT - PLATELET COUNT 134 10^3/uL (130-450); RED BLOOD COUNT 3.87 10^6/uL (4.20-5.40); RED CELL DISTRIBUTION WIDTH 13.5 % (12.0-15.0); WHITE BLOOD COUNT 4.9 x10^3/uL (4.8-10.8)
[2018-11-12 19:02] LABS: ALBUMIN 3.8 g/dL (3.2-5.5); ALBUMIN/GLOBULIN RATIO 1.3 (1.0-2.2); CREATININE 1.5 mg/dL (0.4-1.0); TOTAL PROTEIN 6.8 g/dL (6.7-8.2)
[2018-11-12 20:14] LABS: FREE T4 (FREE THYROXINE) 1.09 ng/dL (0.58-1.64)
== END 2018-11-12 14:39 | disposition home or self-care (01) ==
LOC: LAB.WCP 14:38
PROVIDERS: ATTEND Family Medicine
DX: I10 Essential (primary) hypertension (principal); E03.9 Hypothyroidism, unspecified; E55.9 Vitamin D deficiency, unspecified
CPT/HCPCS: 36415; 80053; 82306; 84439; 84443; 85025

== ENCOUNTER 2018-12-15 13:01 | Outpatient (CLI) | payer MEDICARE, MEDICAID ==
--- NOTE | 2018-12-15 15:09 | Ultrasound Report ---
Reason: LEG EDEMA Procedure Date: 12/15/2018 Accession Number: [id number] / [id number] Procedure: US - Duplex Ext Veins Right CPT Code: FULL RESULT: EXAM: RIGHT LOWER EXTREMITY VENOUS ULTRASOUND. EXAM DATE: 12/15/2018 01:37 PM. CLINICAL HISTORY: Leg edema. COMPARISON: None. TECHNIQUE: Real-time sonographic vascular imaging was performed by the chicken fancier through the lower extremity utilizing both color-flow and Doppler spectral analysis. Multiple agency service representative static images were saved for review. FINDINGS: Common Femoral Vein (CFV): Normal. CFV-GSV Junction: Normal. Profunda Femoral Vein (PFV): Normal. Femoral Vein (FV) Prox: Normal. Femoral Vein (FV) Mid: Normal. Femoral Vein (FV) Dist: Normal. Popliteal Vein: Normal. Posterior Tibial Veins: Normal. Peroneal Veins: Normal. Other: Superficial soft tissue edema is noted. IMPRESSION: No evidence for deep venous thrombosis. Superficial soft tissue edema. RADIA
== END 2018-12-15 13:02 | disposition home or self-care (01) ==
LOC: DI 13:01
PROVIDERS: ATTEND Physician Assistant Medical
DX: R60.0 Localized edema (principal)

== ENCOUNTER 2019-01-28 11:56 | Outpatient (CLI) | payer MEDICARE, MEDICAID ==
--- NOTE | 2019-01-29 08:16 | DEXA Report ---
Reason: POSTMENOPAUSAL STATUS, COPD Procedure Date: 01/28/2019 Accession Number: [id number] / [id number] Procedure: DEX - Dexa Spine and/or Hip CPT Code: FULL RESULT: EXAM: Dexa Spine and/or Hip DATE: 01/28/2019 1:38 PM CLINICAL HISTORY: POSTMENOPAUSAL STATUS, COPD TECHNIQUE: Dual energy x-ray absorptiometry (DXA) was performed on a [employer] System. Regions measured are the AP Spine, femoral neck, and if needed forearm. COMPARISON: None. In accordance with the International Society for Clinical Densitometry (ISCD) guidelines, data from previous exams may be reanalyzed using current recommendations and techniques. This is done to allow a more accurate basis for comparison with the current study. FINDINGS: The data for the lumbar spine is as follows: BMD (g/cm/cm) T-SCORE Z-SCORE REGION L1 0.835 -2.5 -0.6 L2 0.996 -1.7 0.2 L3 1.070 -1.1 0.8 L4 1.085 -1.0 0.9 TOTAL 0.995 -1.5 0.3 NOTE: All evaluable vertebrae are used for classification The data for the hip is as follows: BMD (g/cm/cm) T-SCORE Z-SCORE REGION Neck 0.604 -3.1 -1.0 TOTAL 0.620 -3.1 -1.1 NOTE: The femoral neck or total proximal femur, whichever is lowest, is used for classification. IMPRESSION: THE WHO CLASSIFICATION BASED ON THE INTERNATIONAL REFERENCE STANDARD IS OSTEOPOROSIS. THE FRACTURE RISK IS HIGH. RECOMMENDATION: Patients with diagnosis of osteoporosis or osteopenia should have regular bone mineral density assessment. For those eligible for Medicare, routine testing is allowed once every 2 years. Testing frequency can be increased for patients who have rapidly progressing disease or for those who are receiving medical therapy to restore bone mass. COMMENT: World Health Organization (WHO) definitions for osteoporosis and osteopenia: NORMAL BMD: T-score at -1.0 or higher, fracture risk is low OSTEOPENIA BMD: T-score between -1.0 and -2.5, fracture risk is increased. OSTEOPOROSIS BMD: T-score at -2.5 or lower, fracture risk is high. National Osteoporosis Foundation recommends: 1. Obtain adequate dietary calcium (at least 1200 mg per day) and vitamin D (400-800 international units per day). 2. Participate, as appropriate, in regular weightbearing and muscle-strengthening exercise. 3. Avoid tobacco use and reduce alcohol and caffeine intake. 4. For more detailed information see the website at www.NOF.org.
--- NOTE | 2019-01-30 07:00 | CT Report ---
Reason: POSTMENOPAUSAL STATUS, COPD Procedure Date: 01/28/2019 Accession Number: [id number] / [id number] Procedure: CT - CHEST WO CPT Code: FULL RESULT: EXAM: CT CHEST EXAM DATE: 01/28/2019 12:39 PM CLINICAL HISTORY: Postmenopausal status, COPD. Further assessment and characterization. COMPARISONS: CHEST W/O 09/03/2017 12:00 PM. TECHNIQUE: Routine helical CT imaging was performed through the chest. IV contrast: None. Reconstructions: Coronal and sagittal. In accordance with CT protocol optimization, one or more of the following dose reduction techniques were utilized for this exam: automated exposure control, adjustment of mA and/or KV based on patient size, or use of iterative reconstructive technique. FINDINGS: Lungs and Pleura: Indistinct subsolid appearing nodular densities are seen posteriorly within the right upper lobe (image 22 series 4). Small linear focus of atelectasis and/or scarring is seen within the left lower lobe laterally. No new consolidation is demonstrated. There is no effusion. There is no pneumothorax demonstrated. Central Airways: Visualized central airways are without suspicious filling defects. Chest Wall: No significant abnormality. Thyroid: No significant abnormality. Mediastinum: No significant abnormality. Heart: Normal in size. No significant pericardial effusion. Moderate coronary vascular calcifications. Aorta: Normal caliber. Moderate aortic atherosclerosis. Upper Abdomen: Nonspecific lobular configuration of the liver parenchyma. Underlying cirrhosis or developing cirrhosis difficult to exclude with certainty. Bones: No suspicious bony lesions evident. Exaggerated thoracic kyphosis secondary to mild anterior compression deformities of the mid thoracic vertebral bodies again seen. Moderate multilevel thoracic degenerative changes noted. IMPRESSION: 1. There is no significant pulmonary consolidation. 2. There is a small indistinct cluster of nodular density within the posterolateral portion of the right upper lobe measuring 6 mm. These may represent postinflammatory nodules, at the site of the previous demonstrated airspace disease. However, considering COPD, these are of undetermined etiology. Follow-up noncontrast chest CT recommended at 6 months. RADIA
== END 2019-01-28 11:57 | disposition home or self-care (01) ==
LOC: DI 11:56
PROVIDERS: ATTEND Physician Assistant Medical
DX: J44.9 Chronic obstructive pulmonary disease, unspecified (principal); R91.8 Other nonspecific abnormal finding of lung field; M81.0 Age-related osteoporosis without current pathological fracture; Z78.0 Asymptomatic menopausal state
CPT/HCPCS: 71250; 77080

== ENCOUNTER 2020-07-13 10:50 | Outpatient (CLI) | payer MEDICARE, MEDICAID ==
--- OUTSIDE RECORDS SUMMARY | 2020-07-13 10:54 | EXTERNAL MEDICAL SUMMARY RPT | Continuity of Care Document ---
:1940 Demographics Phone Unavailable Preferred Language Irish Marital Status Unknown Faith Affiliation Unknown Race Unknown Ethnic Group Unknown Author Organization [place] Address [address] [phone] Phone Care Team Providers Name Role Phone MD Unavailable Unavailable Problems date description facility 2020-06-10 00:00:00 TSH WITH REFLEX TO FT4 [facility] 2020-06-10 00:00:00 Unspecified essential [facility] hypertension [facility] 2020-06-10 00:00:00 Osteoarthrosis, unspecified [facility] whether generalized or localized, [facility] involving lower leg 2020-06-10 00:00:00 Late effect of fracture of upper [facility] extremities [facility] 2020-06-10 00:00:00 Encounters for other specified [facility] administrative purpose [facility] 2020-06-10 00:00:00 KNEE 4 OR [facility]WS [facility] 2020-06-10 00:00:00 COMPREHENSIVE METABOLIC PANEL [facility] 2020-06-10 00:00:00 LIPIDS SCREEN [facility] 2020-06-10 00:00:00 CBC W/Diff/Plt [facility] 2020-06-10 00:00:00 Essential (primary) hypertension [facility] 2020-06-10 00:00:00 [facility] 2020-06-10 00:00:00 [facility] knee, [facility] unspecified [facility] 2020-06-10 00:00:00 Chronic kidney disease, stage 3b [facility] 2020-06-10 00:00:00 Unspecified fracture of [facility] unspecified wrist and hand, [facility] sequela 2020-06-10 00:00:00 Other specified counseling [facility] 2020-06-10 00:00:00 Disorder due to and following [facility] fracture at wrist and/or hand [facility] level 2020-06-10 00:00:00 Health-related behavior [facility] 2020-06-10 00:00:00 Tobacco use and exposure [facility] [facility] 2020-06-10 00:00:[address] [facility] [facility] 2020-06-10 00:00:00 Osteoarthritis of knee [facility] [place] [facility] 2020-06-10 00:00:[address] [facility] 2020-06-10 00:00:00 Details of drug misuse behavior [facility] [facility] 2020-06-10 00:00:00 Procedure carried out on subject [facility] [place] [facility] 2020-06-10 00:00:00 Current every day smoker [facility] [facility] 2020-06-10 00:00:[address] [facility] [place] [facility] 2020-06-10 00:00:00 Aortic valve sclerosis [facility] [facility] 2020-06-10 00:00:00 Tobacco smoking status [facility] [facility] 2020-06-10 00:00:00 Total score? [facility] Medications date description facility 2020-06-10 [facility] 2020-06-10 00:00[facility] 2020-06-10 00:00[facility] 2020-06-10 00:00[facility] Social History date description facility 2020-06-10 00:00:00 [facility] Social History date description facility 2020-06-10 00:00:00 [facility] date description facility [id number]
[2020-07-13 11:21] LABS: BASOPHILS % (AUTO) 0.4 %; EOSINOPHILS # (AUTO) 0.4 10^3/uL (0.0-0.7); EOSINOPHILS % (AUTO) 7.4 %; HGB - HEMOGLOBIN 12.9 g/dL (12.0-16.0); LYMPHOCYTES % (AUTO) 18.4 %; MEAN CORPUSCULAR HEMOGLOBIN 31.9 pg (27.0-31.0); MEAN CORPUSCULAR HGB CONC 32.5 g/dL (32.0-36.0); MEAN CORPUSCULAR VOLUME 98.3 fL (81.0-99.0); MEAN PLATELET VOLUME 9.7 fL (7.9-10.8); MONOCYTES # (AUTO) 0.3 10^3/uL (0.0-1.0); MONOCYTES % (AUTO) 5.3 %; NEUTROPHILS # (AUTO) 3.7 10^3/uL (1.5-6.6); NEUTROPHILS % (AUTO) 68.1 %; PLT - PLATELET COUNT 105 10^3/uL (130-450); RED BLOOD COUNT 4.04 10^6/uL (4.20-5.40); RED CELL DISTRIBUTION WIDTH 13.9 % (12.0-15.0); WHITE BLOOD COUNT 5.4 x10^3/uL (4.8-10.8)
[2020-07-13 11:48] LABS: ALBUMIN 4.2 g/dL (3.2-5.5); ALBUMIN/GLOBULIN RATIO 1.4 (1.0-2.2); ALKALINE PHOSPHATASE 65 IU/L (42-121); ALT ALANINE AMINOTRANSFERASE 23 IU/L (10-60); AST ASPARTATE AMINOTRANSFERASE 25 IU/L (10-42); BILIRUBIN,TOTAL 0.6 mg/dL (0.2-1.0); BUN - BLOOD UREA NITROGEN 32 mg/dL (6-20); CALCIUM 9.6 mg/dL (8.5-10.3); CARBON DIOXIDE - CO2 24 mmol/L (21-32); CHLORIDE 108 mmol/L (101-111); CHOL/HDL RATIO 2.1 (<4.4); CHOLESTEROL 138 mg/dL; CREATININE 1.4 mg/dL (0.4-1.0); GLUCOSE 87 mg/dL (70-100); HDL CHOLESTEROL 65 mg/dL; LDL CHOLESTEROL,CALCULATED 61 mg/dL; LDL/HDL RATIO 0.9 (<4.4); SODIUM 142 mmol/L (135-145); TOTAL PROTEIN 7.2 g/dL (6.7-8.2); VLDL CHOLESTEROL 12 mg/dL
== END 2020-07-13 10:51 | disposition home or self-care (01) ==
LOC: LAB 10:50
PROVIDERS: ATTEND Internal Medicine
DX: I10 Essential (primary) hypertension (principal)
CPT/HCPCS: 36415; 80053; 80061; 83721; 84443; 85025

== ENCOUNTER 2021-01-16 16:19 | Outpatient (CLI) | payer MEDICARE, MEDICAID ==
--- NOTE | 2021-01-17 11:09 | XRAY Report ---
PROCEDURE: Cervical Spine 2 View INDICATIONS: DEGENERATIVE JOINT DISEASE TECHNIQUE: 3 view(s) of the cervical spine were acquired. COMPARISON: None. FINDINGS: Bones: No fractures or dislocations to the C7-T1 level. The lateral masses of C1 appear intact on t he odontoid view. No suspicious bony lesions. There is straightening of normal cervical curvature. There is multilevel degenerative disc space narrowing most severe at C4-5, C6-7. Anterior osteophytes are present. Multilevel uncovertebral hypertrophy is present. Soft tissues: No prevertebral soft tissue swelling. IMPRESSION: 1. Multilevel degenerative changes most notable at C4-5, C6-7. Reviewed by: Liv Andujar MD on 01/17/2021 11:08 AM PDT Approved by: Liv Andujar MD on 01/17/2021 11:08 AM PDT Station ID: [id number]
--- NOTE | 2021-01-17 14:55 | XRAY Report ---
PROCEDURE: Shoulder 3 View LT INDICATIONS: ARTHRITIS, L SHOULDER TECHNIQUE: 3 views of the shoulder were acquired. COMPARISON: Prior chest plain film study, 2 views, 01/16/2021 reviewed. FINDINGS: Bones: No acute fractures dislocations, but there is evidence of an old healed fracture of the humer al head/neck junction at the left shoulder. There is moderately severe AC joint osteoarthritis. Gleno humeral degenerative osteoarthritic changes moderate in severity.. No suspicious bony lesions. Visu alized ribs appear intact but there does appear to be a old healed posterior left seventh rib fractur e. Soft tissues: No suspicious soft tissue calcifications. IMPRESSION: Old trauma to the left shoulder. Apparent healed posterior left seventh rib fracture, no definite acute disease. Reviewed by: James Duff MD on 01/17/2021 2:54 PM PDT Approved by: James Duff MD on 01/17/2021 2:54 PM PDT Station ID: [id number]
--- NOTE | 2021-01-17 14:57 | XRAY Report ---
PROCEDURE: Chest 2 View X-Ray INDICATIONS: COPD TECHNIQUE: 2 view(s) of the chest. COMPARISON: None. FINDINGS: Surgical changes and devices: None. Lungs and pleura: No pleural effusions or pneumothorax. Lungs are clear. Mediastinum: Mediastinal contours are normal. Heart size is normal. Bones and chest wall: No suspicious bony abnormalities. Soft tissues appear unremarkable. Old prox imal humeral head/neck junction fractures at the left shoulder. IMPRESSION: No acute disease. Note is made of moderate degenerative disc disease along the lateral t hird of the thoracic spine with several mild anterior wedge shaped reduction of anterior vertebral bharat dies in this area. Suspect old compression fractures or degenerative change as cause of that appearan ce. Relatively large lung volumes on the frontal view, consistent with COPD. No pneumonia found. Dominant O Reviewed by: James Duff MD on 01/17/2021 2:56 PM PDT Approved by: James Duff MD on 01/17/2021 2:56 PM PDT Station ID: [id number]
== END 2021-01-16 16:20 | disposition home or self-care (01) ==
LOC: DI.N 16:19
PROVIDERS: ATTEND Internal Medicine
DX: J44.9 Chronic obstructive pulmonary disease, unspecified (principal); M43.02 Spondylolysis, cervical region; M51.34 Other intervertebral disc degeneration, thoracic region; M19.012 Primary osteoarthritis, left shoulder

== ENCOUNTER 2022-10-20 10:04 | Outpatient (CLI) | payer MEDICARE, MEDICAID | END 2022-10-20 23:59 | disposition short-term general hospital (02) | LOC: EMS 10:04 | DX: S01.81XA Laceration without foreign body of other part of head, initial encounter (principal); W01.190A Fall on same level from slipping, tripping and stumbling with subsequent striking against furniture, initial encounter; Y93.K9 Activity, other involving animal care; Y92.000 Kitchen of unspecified non-institutional (private) residence as the place of occurrence of the external cause | CPT/HCPCS: A0425; A0429 ==

== ENCOUNTER 2022-11-18 23:21 | Outpatient (CLI) | payer MEDICARE, MEDICAID | END 2022-11-18 23:22 | disposition EMS.NT | LOC: EMS 23:21 | DX: R06.00 Dyspnea, unspecified (principal) ==

== ENCOUNTER 2023-03-10 17:08 | Outpatient (CLI) | payer MEDICARE, MEDICAID | END 2023-03-10 23:59 | disposition EMS.NT | LOC: EMS 17:08 | DX: Z03.89 Encounter for observation for other suspected diseases and conditions ruled out (principal) ==

== ENCOUNTER 2023-03-29 14:31 | Outpatient (CLI) | payer MEDICARE, MEDICAID | END 2023-03-29 14:32 | disposition short-term general hospital (02) | LOC: EMS 14:31 | DX: S91.302A Unspecified open wound, left foot, initial encounter (principal); S91.104A Unspecified open wound of right lesser toe(s) without damage to nail, initial encounter; W19.XXXA Unspecified fall, initial encounter; I10 Essential (primary) hypertension; J44.9 Chronic obstructive pulmonary disease, unspecified | CPT/HCPCS: A0425; A0429 ==

== ENCOUNTER 2023-05-10 14:42 | Outpatient (CLI) | payer MEDICARE, MEDICAID | END 2023-05-10 14:43 | disposition home or self-care (01) | LOC: LAB 14:42 → LAB.R 14:43 | PROVIDERS: ATTEND Registered Nurse | DX: I50.31 Acute diastolic (congestive) heart failure (principal); S91.102D Unspecified open wound of left great toe without damage to nail, subsequent encounter; M62.59 Muscle wasting and atrophy, not elsewhere classified, multiple sites; D64.9 Anemia, unspecified | CPT/HCPCS: 83036; 85025; 85651; 86140 ==

== ENCOUNTER 2023-05-13 15:27 | Outpatient (CLI) | payer MEDICARE, MEDICAID ==
[2023-05-13 15:38] LABS: BASOPHILS % (AUTO) 0.2 %; EOSINOPHILS % (AUTO) 0.2 %; HCT - HEMATOCRIT 33.8 % (37.0-47.0); LYMPHOCYTES # (AUTO) 0.4 10^3/uL (1.5-3.5); LYMPHOCYTES % (AUTO) 9.7 %; MEAN CORPUSCULAR HEMOGLOBIN 26.8 pg (27.0-31.0); MEAN CORPUSCULAR HGB CONC 29.6 g/dL (32.0-36.0); MEAN CORPUSCULAR VOLUME 90.6 fL (81.0-99.0); MONOCYTES # (AUTO) 0.1 10^3/uL (0.0-1.0); MONOCYTES % (AUTO) 2.2 %; NEUTROPHILS # (AUTO) 3.9 10^3/uL (1.5-6.6); NEUTROPHILS % (AUTO) 86.4 %; PLT - PLATELET COUNT 93 10^3/uL (130-450); RED BLOOD COUNT 3.73 10^6/uL (4.20-5.40); RED CELL DISTRIBUTION WIDTH 20.5 % (12.0-15.0); WHITE BLOOD COUNT 4.6 x10^3/uL (4.8-10.8)
[2023-05-13 15:54] LABS: PLATELET ESTIMATE, MANUAL DECREASED (<130,000) (NORMAL); PLATELET MORPHOLOGY NORMAL APPEARANCE (NORMAL); RBC MORPHOLOGY (MULTIPLE) 3+ ANISOCYTOSIS (NORMAL); SLIDE REVIEW? Indicated
[2023-05-13 21:22] LABS: ESTIMATED AVERAGE GLUCOSE 128 mg/dL (70-100); HEMOGLOBIN A1c% 6.1 % (4.27-6.07)
== END 2023-05-13 15:28 | disposition home or self-care (01) ==
LOC: LAB.R 15:27
PROVIDERS: ATTEND Registered Nurse
DX: E11.9 Type 2 diabetes mellitus without complications (principal); D64.9 Anemia, unspecified
CPT/HCPCS: 83036; 85025

== ENCOUNTER 2023-05-15 10:40 | Outpatient (CLI) | payer MEDICARE, MEDICAID ==
--- NOTE | 2023-05-16 10:18 | XRAY Report ---
PROCEDURE: Foot 2 View LT INDICATIONS: OSTEOMYELITIS TECHNIQUE: 3 views of the foot were acquired. COMPARISON: None. FINDINGS: Bones: No fractures or dislocations. No suspicious bony lesions. There is bony erosion in the poste rior aspect of the calcaneus were a soft tissue lucency is noted. There is moderate osteoarthritic ch anges in ankle and foot. Osteopenia is present. Moderate degenerative disease in ankle and foot. Ost eopenia. Soft tissues: No suspicious soft tissue calcifications or masses. Soft tissue swelling in the distal left foot. IMPRESSION: 1. There is bony erosion in the posterior aspect of the calcaneus, concerning for osteomyelitis. Of n ote, this is not in the same area of concern (marked by the arrow) in the distal first metatarsal hea d. Radiographs are not sensitive to early osteoarthritis. If clinical suspicion persists, consider a triple phase bone scan or MRI with and without contrast. 2. Soft tissue swelling. Reviewed by: Brigitte Farnsworth MD on 05/16/2023 10:16 AM [facility] Approved by: Brigitte Farnsworth MD on 05/16/2023 10:16 AM PST Station ID: [id number]
== END 2023-05-15 10:41 | disposition home or self-care (01) ==
LOC: DI 10:40
PROVIDERS: ATTEND Registered Nurse
DX: M86.9 Osteomyelitis, unspecified (principal); R93.6 Abnormal findings on diagnostic imaging of limbs; R93.89 Abnormal findings on diagnostic imaging of other specified body structures

== ENCOUNTER 2023-05-20 08:04 | Day surgery (SDC) | payer MEDICARE, MEDICAID ==
--- NOTE | 2023-05-20 10:29 | XRAY Report ---
PROCEDURE: Chest for Line Placement INDICATIONS: post picc line placement, confirmation TECHNIQUE: One view of the chest was acquired. COMPARISON: 01/16/2021. FINDINGS: Surgical changes and devices: left-sided PICC line tip is in the region of SVC.. Lungs and pleura: No pleural effusions or pneumothorax. Lungs are clear. Mediastinum: Mediastinal contours appear normal. Heart size is normal. Bones and chest wall: No suspicious bony lesions. Overlying soft tissues appear unremarkable. IMPRESSION: No acute cardiopulmonary process. Left-sided PICC line tip is in the region of SVC. Reviewed by: Armen Loredo MD on 05/20/2023 10:28 AM PST Approved by: Armen Loredo MD on 05/20/2023 10:28 AM PST Station ID: [id number]
[2023-05-20 10:33] VITALS: BP 133/54; O2SAT 100
--- NOTE | 2023-05-20 12:12 | ANESTHESIA PROCEDURE NOTE ---
Anesth Central Line Template - Central Line Central Line Preparation: Consent Obtained, Time out completed, Ultrasound used, Sterile prep and drape Central line location: Left Basilic Central line type: PICC Single Lumen Central line catheter tip site resides: Superior vena cava (SVC) Central line aftercare: Secured (statlock and tegederm, small area of line tunneled.), Placement confirmed (CXR shows tip SVC, trimmed at 36 cm, none exposed.), No complications, Bundle checklist complete, Pt tolerated well
== END 2023-05-20 08:05 | disposition home or self-care (01) ==
LOC: SDS 08:04
PROVIDERS: ATTEND Nurse Anesthetist, Certified Registered
DX: M86.9 Osteomyelitis, unspecified (principal)
CPT/HCPCS: 36569

== ENCOUNTER 2023-05-22 14:10 | Outpatient (CLI) | payer MEDICARE, MEDICAID ==
[2023-05-22 15:09] LABS: BASOPHILS % (AUTO) 0.2 %; HCT - HEMATOCRIT 32.7 % (37.0-47.0); HGB - HEMOGLOBIN 9.4 g/dL (12.0-16.0); LYMPHOCYTES # (AUTO) 0.3 10^3/uL (1.5-3.5); LYMPHOCYTES % (AUTO) 6.2 %; MEAN CORPUSCULAR HEMOGLOBIN 26.9 pg (27.0-31.0); MEAN CORPUSCULAR HGB CONC 28.7 g/dL (32.0-36.0); MEAN CORPUSCULAR VOLUME 93.4 fL (81.0-99.0); MEAN PLATELET VOLUME 11.9 fL (7.9-10.8); MONOCYTES # (AUTO) 0.2 10^3/uL (0.0-1.0); MONOCYTES % (AUTO) 2.9 %; NEUTROPHILS # (AUTO) 4.6 10^3/uL (1.5-6.6); NEUTROPHILS % (AUTO) 89.3 %; PLT - PLATELET COUNT 82 10^3/uL (130-450); RED CELL DISTRIBUTION WIDTH 20.2 % (12.0-15.0); WHITE BLOOD COUNT 5.2 x10^3/uL (4.8-10.8)
[2023-05-22 15:27] LABS: ALBUMIN 3.5 g/dL (3.2-5.5); ALBUMIN/GLOBULIN RATIO 1.8 (1.0-2.2); ALKALINE PHOSPHATASE 69 IU/L (42-121); ALT ALANINE AMINOTRANSFERASE 71 IU/L (10-60); AST ASPARTATE AMINOTRANSFERASE 36 IU/L (10-42); BILIRUBIN,TOTAL 0.3 mg/dL (0.2-1.0); BUN - BLOOD UREA NITROGEN 50 mg/dL (6-20); CALCIUM 8.4 mg/dL (8.5-10.3); CARBON DIOXIDE - CO2 22 mmol/L (21-32); CHLORIDE 109 mmol/L (101-111); CREATININE 1.3 mg/dL (0.6-1.3); CRP - C-REACTIVE PROTEIN < 0.5 mg/dL (<0.5); GFR - MDRD 39 (>89); GLUCOSE 184 mg/dL (74-104); POTASSIUM 3.8 mmol/L (3.5-4.5); SODIUM 141 mmol/L (135-145); TOTAL PROTEIN 5.4 g/dL (6.4-8.9)
[2023-05-22 16:11] LABS: PLATELET ESTIMATE, MANUAL DECREASED (<130,000) (NORMAL); PLATELET MORPHOLOGY NORMAL APPEARANCE (NORMAL); SLIDE REVIEW? Indicated
== END 2023-05-22 14:11 | disposition home or self-care (01) ==
LOC: LAB.R 14:10
PROVIDERS: ATTEND Registered Nurse
DX: I13.0 Hypertensive heart and chronic kidney disease with heart failure and stage 1 through stage 4 chronic kidney disease, or unspecified chronic kidney disease (principal); I50.31 Acute diastolic (congestive) heart failure; N18.9 Chronic kidney disease, unspecified; J44.1 Chronic obstructive pulmonary disease with (acute) exacerbation; A60.1 Herpesviral infection of perianal skin and rectum; D64.9 Anemia, unspecified
CPT/HCPCS: 80053; 85025; 85651; 86140

== ENCOUNTER 2023-06-05 13:52 | Outpatient (CLI) | payer MEDICARE, MEDICAID ==
[2023-06-05 14:00] LABS: BASOPHILS % (AUTO) 0.1 %; EOSINOPHILS % (AUTO) 0.1 %; HCT - HEMATOCRIT 33.5 % (37.0-47.0); LYMPHOCYTES # (AUTO) 0.4 10^3/uL (1.5-3.5); LYMPHOCYTES % (AUTO) 4.7 %; MEAN CORPUSCULAR HEMOGLOBIN 28.1 pg (27.0-31.0); MEAN CORPUSCULAR HGB CONC 29.9 g/dL (32.0-36.0); MEAN CORPUSCULAR VOLUME 94.1 fL (81.0-99.0); MEAN PLATELET VOLUME 11.3 fL (7.9-10.8); MONOCYTES # (AUTO) 0.2 10^3/uL (0.0-1.0); NEUTROPHILS # (AUTO) 6.7 10^3/uL (1.5-6.6); NEUTROPHILS % (AUTO) 90.7 %; PLT - PLATELET COUNT 73 10^3/uL (130-450); RED BLOOD COUNT 3.56 10^6/uL (4.20-5.40); RED CELL DISTRIBUTION WIDTH 19.9 % (12.0-15.0); WHITE BLOOD COUNT 7.4 x10^3/uL (4.8-10.8)
[2023-06-05 14:16] LABS: ALBUMIN 3.6 g/dL (3.2-5.5); ALBUMIN/GLOBULIN RATIO 1.5 (1.0-2.2); ALKALINE PHOSPHATASE 71 IU/L (42-121); ALT ALANINE AMINOTRANSFERASE 70 IU/L (10-60); AST ASPARTATE AMINOTRANSFERASE 36 IU/L (10-42); BILIRUBIN,TOTAL 0.3 mg/dL (0.2-1.0); BUN - BLOOD UREA NITROGEN 49 mg/dL (6-20); CALCIUM 8.7 mg/dL (8.5-10.3); CARBON DIOXIDE - CO2 25 mmol/L (21-32); CHLORIDE 107 mmol/L (101-111); CREATININE 1.3 mg/dL (0.6-1.3); CRP - C-REACTIVE PROTEIN < 0.5 mg/dL (<0.5); GFR - MDRD 39 (>89); GLUCOSE 194 mg/dL (74-104); POTASSIUM 3.6 mmol/L (3.5-4.5); SODIUM 139 mmol/L (135-145)
== END 2023-06-05 13:53 | disposition home or self-care (01) ==
LOC: LAB.R 13:52
PROVIDERS: ATTEND Registered Nurse
DX: M86.9 Osteomyelitis, unspecified (principal)
CPT/HCPCS: 80053; 85025; 85651; 86140

== ENCOUNTER 2023-07-07 08:38 | Outpatient (CLI) | payer MEDICARE, MEDICAID | END 2023-07-07 23:59 | disposition critical access hospital (66) | LOC: EMS 08:38 | DX: R06.02 Shortness of breath (principal); R07.89 Other chest pain | CPT/HCPCS: A0425; A0429 ==

== ENCOUNTER 2023-07-07 08:49 | Emergency (ER) | payer MEDICARE, MEDICAID ==
[2023-07-07] MEDS ORDERED: methylPREDNISolone SUCCINATE 125 MG/2 ML VIAL IVP STA (08:58)
[2023-07-07] MEDS ORDERED: IPRATROPIUM/ALBUTEROL 3 ML NEB INH STA (08:58)
--- NOTE | 2023-07-07 09:01 | ED Physician Documentation ---
History of Present Illness - Stated complaint Stated Complaint: CHEST PRESSURE - Chief complaint Chief Complaint: Cardiac - Additonal information Additional information: Patient 82-year-old female presenting to the emergency department via EMS with chief complaint shortness of breath. Reports progressively worsening shortness of breath since yesterday. Has a past medical significant for advanced COPD. Current medications include metoprolol, levothyroxine, 40 mg daily prednisone. She denies fever, cough, increased sputum production, chest pain, abdominal pain, nausea, vomiting. Reports that she discontinued smoking a few years ago. Review of Systems Constitutional: denies: Fever Eyes: denies: Loss of vision Ears: denies: Loss of hearing Nose: denies: Rhinorrhea / runny nose Respiratory: reports: Dyspnea, Wheezing. denies: Hemoptysis GI: reports: Diarrhea. denies: Abdominal Pain, Nausea, Vomiting, Constipation : denies: Dysuria PD PAST MEDICAL HISTORY - Past Medical History Cardiovascular: Hypertension, High cholesterol Respiratory: COPD Endocrine/Autoimmune: HyPOthyroidism GI: Chronic diarrhea : Incontinence, Nocturia HEENT: Chronic hearing loss Psych: Depression Musculoskeletal: Osteoporosis Derm: None - Past Surgical History Past Surgical History: Yes Ortho: Other HEENT: Cataracts - Present Medications Home Medications: Ambulatory Orders Medication Instructions Recorded Confirmed Cholecalciferol (Vitamin D3) 3,000 units PO DAILY 12/16/13 07/31/17 [Vitamin D3] Fluoxetine HCl 40 mg PO DAILY 12/16/13 07/31/17 Levothyroxine Sodium [Levoxyl] 175 mcg PO QDAC 12/16/13 07/31/17 Losartan [Cozaar] 50 mg PO DAILY 07/31/17 07/31/17 Simvastatin 40 mg PO QPM 07/31/17 07/31/17 Ascorbic Acid [Vitamin C] 500 mg PO 07/03/23 Ferrous Sulfate [Feosol] 325 mg PO DAILY 07/03/23 07/03/23 Furosemide [Lasix] 20 mg PO DAILY 07/03/23 07/03/23 Hydrocodone/Acetaminophen 1 each PO 07/03/23 [Hydrocodone-Acetamin 5-300 mg] Metoprolol Tartrate [Lopressor] 25 mg PO BID 07/03/23 07/03/23 Pantoprazole [Protonix] 40 mg PO 07/03/23 predniSONE [Deltasone] 20 mg PO 07/03/23 Albuterol Sulf [Ventolin Hfa 1 - 2 puffs INH Q4HR PRN #1 each 07/07/23 Inhaler] predniSONE [Prednisone] 50 mg PO DAILY #5 tablet 07/07/23 - Allergies Allergies/Adverse Reactions: Allergies Allergy/AdvReac Type Severity Reaction Status Date / Time No Known Drug Allergies Allergy Verified 05/20/23 07:06 - Social History Does the pt smoke?: Yes Smoking Status: Current every day smoker Does the pt drink ETOH?: Yes Does the pt have substance abuse?: No - POLST Patient has POLST: No POLST Status: Full Code PD ED PE NORMAL - Vitals Vital signs reviewed: Yes (Patient tachypneic) - General General: Alert and oriented X 3, Other - HEENT HEENT: Atraumatic - Neck Neck: Supple, no meningeal sign, No bony TTP, No adenopathy - Cardiac Cardiac: RRR - Respiratory Respiratory: Other (Accessory muscle use. Diminished breath sounds in all lung bergman with scant end expiratory wheeze) - Abdomen Abdomen: Normal bowel sounds, Non tender - Female Female : Deferred - Rectal Rectal: Deferred - Back Back: No CVA TTP - Derm Derm: Normal color - Extremities Extremities: Other (Chronic deformity of the right wrist) - Psych Psych: Normal mood Results - Vitals Vitals: Vital Signs - 24 hr 07/07/23 07/07/23 07/07/23 08:51 09:24 11:12 Temperature 36.2 C L Heart Rate 80 76 99 Respiratory 18 20 20 Rate Blood Pressure 189/78 H 147/63 H O2 Saturation 96 94 If not protocol 2 2 : Oxygen Flow, liters/minute Oxygen O2 Source [] Room air O2 Source [] Room air O2 Source Nasal cannula - EKG (time done) 0854 EKG releavant findings:: EKG personally interpreted by author of this note. Relevant findings are: Sinus rhythm with rate 83 bpm. Normal axis. Normal [place], QRS intervals. QTc intermediately at 483 ms. Significant motion artifact throughout with some possible ST depressions in the lateral inferior leads. No previous EKG available for comparison. - Labs Labs: Laboratory Tests 07/07/23 07/07/23 07/07/23 09:08 09:16 09:16 WBC 10.0 RBC 3.60 L Hgb 10.7 L Hct 36.0 L MCV 100.0 H MCH 29.7 MCHC 29.7 L RDW 17.4 H Plt Count 74 L MPV 11.2 H Neut # (Auto) 8.5 H Lymph # (Auto) 0.7 L [place] # (Auto) 0.5 Eos # (Auto) 0.2 Baso # (Auto) 0.0 Absolute Nucleated RBC 0.00 Nucleated RBC % 0.0 VBG pH VBG pCO2 VBG pO2 VBG HCO3 VBG Total CO2 VBG O2 Saturation VBG Base Excess Sodium 143 Potassium 4.0 Chloride 107 Carbon Dioxide 30 Anion Gap 6.0 BUN 41 H Creatinine 1.1 Estimated GFR (MDRD) 48 L Glucose 95 Calcium 9.2 Magnesium 1.9 Total Bilirubin 0.6 AST 33 ALT 60 Alkaline Phosphatase 74 Troponin I High Sens B-Natriuretic Peptide Total Protein 6.1 L Albumin 3.5 Globulin 2.6 Albumin/Globulin Ratio 1.3 Lipase 47 Nasal Adenovirus (PCR) NOT DETECTED Nasal B. parapertussis DNA (PCR) NOT DETECTED Nasal Coronavir 229E PCR NOT DETECTED Nasal Coronavir HKU1 PCR NOT DETECTED Nasal Coronavir NL63 PCR NOT DETECTED Nasal Coronavir OC43 PCR NOT DETECTED Nasal Enterovir/Rhinovir PCR DETECTED A Nasal Influenza B PCR NOT DETECTED Nasal Influenza A PCR NOT DETECTED Nasal Parainfluen 1 PCR NOT DETECTED Nasal Parainfluen 2 PCR NOT DETECTED Nasal Parainfluen 3 PCR NOT DETECTED Nasal Parainfluen 4 PCR NOT DETECTED Nasal RSV (PCR) NOT DETECTED Nasal B.pertussis DNA PCR NOT DETECTED Nasal C.pneumoniae (PCR) NOT DETECTED John Human Metapneumo PCR NOT DETECTED Nasal M.pneumoniae (PCR) NOT DETECTED Nasal SARS-CoV-2 (PCR) NOT DETECTED 07/07/23 07/07/23 07/07/23 09:16 09:16 09:16 WBC RBC Hgb Hct MCV MCH MCHC RDW Plt Count MPV Neut # (Auto) Lymph # (Auto) [place] # (Auto) Eos # (Auto) Baso # (Auto) Absolute Nucleated RBC Nucleated RBC % VBG pH 7.362 VBG pCO2 50.7 VBG pO2 28.9 VBG HCO3 28.1 H VBG Total CO2 29.7 H VBG O2 Saturation 53.8 L VBG Base Excess 2.0 Sodium Potassium Chloride Carbon Dioxide Anion Gap BUN Creatinine Estimated GFR (MDRD) Glucose Calcium Magnesium Total Bilirubin AST ALT Alkaline Phosphatase Troponin I High Sens 62.4 H* B-Natriuretic Peptide 1485 H Total Protein Albumin Globulin Albumin/Globulin Ratio Lipase Nasal Adenovirus (PCR) Nasal B. parapertussis DNA (PCR) Nasal Coronavir 229E PCR Nasal Coronavir HKU1 PCR Nasal Coronavir NL63 PCR Nasal Coronavir OC43 PCR Nasal Enterovir/Rhinovir PCR Nasal Influenza B PCR Nasal Influenza A PCR Nasal Parainfluen 1 PCR Nasal Parainfluen 2 PCR Nasal Parainfluen 3 PCR Nasal Parainfluen 4 PCR Nasal RSV (PCR) Nasal B.pertussis DNA PCR Nasal C.pneumoniae (PCR) John Human Metapneumo PCR Nasal M.pneumoniae (PCR) Nasal SARS-CoV-2 (PCR) 07/07/23 12:00 WBC RBC Hgb Hct MCV MCH MCHC RDW Plt Count MPV Neut # (Auto) Lymph # (Auto) [place] # (Auto) Eos # (Auto) Baso # (Auto) Absolute Nucleated RBC Nucleated RBC % VBG pH VBG pCO2 VBG pO2 VBG HCO3 VBG Total CO2 VBG O2 Saturation VBG Base Excess Sodium Potassium Chloride Carbon Dioxide Anion Gap BUN Creatinine Estimated GFR (MDRD) Glucose Calcium Magnesium Total Bilirubin AST ALT Alkaline Phosphatase Troponin I High Sens 58.6 H* B-Natriuretic Peptide Total Protein Albumin Globulin Albumin/Globulin Ratio Lipase Nasal Adenovirus (PCR) Nasal B. parapertussis DNA (PCR) Nasal Coronavir 229E PCR Nasal Coronavir HKU1 PCR Nasal Coronavir NL63 PCR Nasal Coronavir OC43 PCR Nasal Enterovir/Rhinovir PCR Nasal Influenza B PCR Nasal Influenza A PCR Nasal Parainfluen 1 PCR Nasal Parainfluen 2 PCR Nasal Parainfluen 3 PCR Nasal Parainfluen 4 PCR Nasal RSV (PCR) Nasal B.pertussis DNA PCR Nasal C.pneumoniae (PCR) John Human Metapneumo PCR Nasal M.pneumoniae (PCR) Nasal SARS-CoV-2 (PCR) PD Medical Decision Making - ED course Complexity details: reviewed results, re-evaluated patient, considered differential, d/w patient, other ED course: Patient is 82-year-old female with known history COPD, hypothyroidism, chronic diarrhea, osteomyelitis of the left foot who presented to the emergency department with 1 day history of shortness of breath. On arrival to the emergency department she was noted to be hypoxic with oxygen saturation 89% on room air. She had clear increased work of breathing as well as some decreased airflow and end expiratory wheeze. Breathing treatments as well as methylprednisolone were ordered on arrival to the emergency department. Patient denies any baseline oxygen demand. Similarly she was noted to have chronic prednisone prescribed for her but is uncertain whether or not she is taking this medication. Her EKG as outlined above demonstrated some nonspecific ST-T wave abnormalities however no indications of acute myocardial infarction. Overall her lab work here in the ER was very reassuring. She did have a mild elevation in high-sensitivity troponin which down trended on the 2-hour repeat. I do not believe that this represents true cardiac ischemia and is likely chronic. Although she was initially triaged with complaint of chest pressure during my interview she denied any sensation of chest pressure or chest pain that would be suggestive of acute cardiac ischemia. I did obtain a CTA of her chest which was negative for acute any thoracic pathology. She was monitored in the emergency department for several hours. She was weaned off supplemental oxygen and maintained adequate oxygen saturations on room air. On my repeat evaluation she reported feeling significantly better. She was notably positive for rhinovirus. I had a detailed discussion with her about all findings in the emergency department. We discussed her current living situation and she reports that she has caretakers who are with her at least 5 days a week. We did discuss hospitalization however she was strongly adamant that she wished to be discharged from the emergency department. She reports that she does not currently have either an albuterol inhaler or the ability to take nebulizer treatments at home. I will write prescription for albuterol inhaler. Additionally she is uncertain whether or not she is currently taking the prednisone that is listed as a current medication and was recently filled at a local pharmacy. I will write her a short course of prednisone so that if in the event that she is not in fact taking 40 mg daily as her chart would indicate she can start a short course of prednisone for her COPD exacerbation. Overall clinical impression is a COPD exacerbation Caused by an acute rhinovirus infection. Nevertheless she was strongly encouraged to return to the emergency department immediately for any new or worsening symptoms. Departure - Departure Disposition: 01 Home, Self Care Clinical Impression: COPD exacerbation, Rhinovirus, Elevated troponin Instructions: ED COPD Flare, ED Viral Syndrome Prescriptions: Albuterol Sulf [Ventolin Hfa Inhaler] 1 - 2 puffs INH Q4HR PRN #1 each PRN Reason: Shortness Of Air/Wheezing predniSONE [Prednisone] 50 mg PO DAILY #5 tablet Forms: PCP List
[2023-07-07] MEDS ORDERED: ALBUTEROL NEB 2.5 MG/3 ML INH ONE (09:18)
--- NOTE | 2023-07-07 09:18 | XRAY Report ---
PROCEDURE: Chest 1V INDICATIONS: chest pain TECHNIQUE: One view of the chest was acquired. COMPARISON: 05/20/2023, 01/16/2021 FINDINGS: Surgical changes and devices: None. Lungs and pleura: No pleural effusions or pneumothorax. Lungs are clear. Mediastinum: The aorta is prominent and tortuous. The cardiac contours are within normal limits. Bones and chest wall: No suspicious bony lesions. Age-appropriate degenerative changes are seen. O verlying soft tissues appear unremarkable. IMPRESSION: Portable chest within normal limits for age. Reviewed by: Keon Henry MD on 07/07/2023 8:17 AM [facility] Approved by: Keon Henry MD on 07/07/2023 8:17 AM [facility] Station ID: [id number]
[2023-07-07 09:20] LABS: BASOPHILS % (AUTO) 0.2 %; EOSINOPHILS # (AUTO) 0.2 10^3/uL (0.0-0.7); EOSINOPHILS % (AUTO) 1.8 %; HGB - HEMOGLOBIN 10.7 g/dL (12.0-16.0); LYMPHOCYTES # (AUTO) 0.7 10^3/uL (1.5-3.5); LYMPHOCYTES % (AUTO) 6.5 %; MEAN CORPUSCULAR HEMOGLOBIN 29.7 pg (27.0-31.0); MEAN CORPUSCULAR HGB CONC 29.7 g/dL (32.0-36.0); MEAN PLATELET VOLUME 11.2 fL (7.9-10.8); MONOCYTES # (AUTO) 0.5 10^3/uL (0.0-1.0); MONOCYTES % (AUTO) 4.6 %; NEUTROPHILS # (AUTO) 8.5 10^3/uL (1.5-6.6); NEUTROPHILS % (AUTO) 84.5 %; PLT - PLATELET COUNT 74 10^3/uL (130-450); RED CELL DISTRIBUTION WIDTH 17.4 % (12.0-15.0)
[2023-07-07] MEDS ORDERED: ALBUTEROL NEB 2.5 MG/3 ML INH STA ×2 (09:20→09:21)
[2023-07-07 09:21] LABS: VBG HCO3 28.1 mmol/L (23-28); VBG OXYGEN SATURATION 53.8 % (60-80); VBG PCO2 50.7 mmHg (41-51); VBG PH 7.362 (7.31-7.41); VBG PO2 28.9 mmHg (25-47); VBG TOTAL CO2 29.7 mmol/L (24-29)
[2023-07-07 09:40] LABS: ALBUMIN 3.5 g/dL (3.2-5.5); ALBUMIN/GLOBULIN RATIO 1.3 (1.0-2.2); BILIRUBIN,TOTAL 0.6 mg/dL (0.2-1.0); CALCIUM 9.2 mg/dL (8.5-10.3); CREATININE 1.1 mg/dL (0.6-1.3); MAGNESIUM 1.9 mg/dL (1.7-2.3); TOTAL PROTEIN 6.1 g/dL (6.4-8.9)
[2023-07-07 10:25] LABS: B. PARAPERTUSSIS- RESP PCR PAN NOT DETECTED; B. PERTUSSIS- RESP PCR PANEL NOT DETECTED; C. PNEUMONIAE- RESP PCR PANEL NOT DETECTED; CORONAVIRUS 229E-RESP PCR NOT DETECTED; CORONAVIRUS HKU1-RESP PCR NOT DETECTED; CORONAVIRUS NL63-RESP PCR NOT DETECTED; CORONAVIRUS OC43-RESP PCR NOT DETECTED; HUMAN METAPNEUMOVIRUS NOT DETECTED; INFLUENZA A- RESP PCR PANEL NOT DETECTED; INFLUENZA B - RESP PCR PANEL NOT DETECTED; M. PNEUMONIAE- RESP PCR PANEL NOT DETECTED; PARAINFLUENZA VIRUS 1 NOT DETECTED; PARAINFLUENZA VIRUS 2 NOT DETECTED; PARAINFLUENZA VIRUS 3 NOT DETECTED; PARAINFLUENZA VIRUS 4 NOT DETECTED; RHINOVIRUS/ENTEROVIRUS DETECTED; RSV- RESP PCR PANEL NOT DETECTED; SARS-CoV-2 -RESP PCR PANEL NOT DETECTED
[2023-07-07] MEDS ORDERED: iohexoL-300 100 ML VIAL IVP ONE (12:03)
--- NOTE | 2023-07-07 12:14 | CT Report ---
PROCEDURE: Angio Chest INDICATIONS: rule out PE CONTRAST: Omni 300 80ml TECHNIQUE: After the administration of intravenous contrast, 2 mm axial images were acquired from the pulmonary apices to the posterior costophrenic angles during the arterial phase. In addition, 1 mm lung kernel and 5 mm soft tissue kernel reconstructions were performed. 3-dimensional coronal oblique maximum int ensity projection (MIP) reformats, 8 mm axial MIP, and 5 mm coronal and sagittal MPR reformats were t hen performed through the thorax. For radiation dose reduction, the following was used: automated exp osure control, adjustment of mA and/or kV according to patient size. COMPARISON: 01/28/2019 FINDINGS: Image quality: Motion artifact is noted. Large vessels: No filling defects within the opacified pulmonary arteries, accounting for motion and contrast timing. No evidence of acute aortic syndrome or aortic aneurysm. Lungs and pleura: No consolidation. No pleural effusions. No pneumothorax. No suspicious pulmonary n odules which require follow up. Mediastinum: Heart size is normal. No pericardial effusion. No large vessel abnormality. Atherosclero tic calcification is seen. No mediastinal adenopathy by size criteria. Chest wall and lower neck: The thyroid isn't well seen. No axillary or supraclavicular adenopathy by size. Bones: No aggressive osseous abnormality. Several levels of chronic appearing mild midthoracic anteri or wedge deformity can be seen, with associated accentuated thoracic kyphosis. Degenerative changes c an be seen throughout. Upper Abdomen: Unremarkable. IMPRESSION: No pulmonary embolus. No significant pulmonary abnormality can be seen. Additional findings: Thyroid not well seen. Please correlate with patient history. Reviewed by: Keon Henry MD on 07/07/2023 11:12 AM [facility] Approved by: Keon Henry MD on 07/07/2023 11:12 AM [facility] Station ID: [id number]
[2023-07-07 14:51] VITALS: BP 142/63; O2SAT 94
== END 2023-07-07 14:44 | disposition home or self-care (01) ==
LOC: EDUNIT# → ED 08:49
DX: J44.1 Chronic obstructive pulmonary disease with (acute) exacerbation (principal); R79.89 Other specified abnormal findings of blood chemistry; B34.8 Other viral infections of unspecified site; I10 Essential (primary) hypertension; F17.200 Nicotine dependence, unspecified, uncomplicated
CPT/HCPCS: 36415; 71045; 71275; 80053; 82803; 83690; 83735; 83880; 84484; 85025; 87633; 93005; 94640; 96374; 99284; Q9967

== ENCOUNTER 2023-07-07 14:38 | Outpatient (CLI) | payer MEDICARE, MEDICAID | END 2023-07-07 23:59 | LOC: EMS 14:38 | PROVIDERS: ATTEND Student in an Organized Health Care Education/Training Program | DX: F03.90 Unspecified dementia, unspecified severity, without behavioral disturbance, psychotic disturbance, mood disturbance, and anxiety (principal); B34.8 Other viral infections of unspecified site | CPT/HCPCS: A0425; A0428 ==

== ENCOUNTER 2023-08-20 08:11 | Day surgery (SDC) | payer MEDICARE, MEDICAID ==
[2023-08-20 10:06] VITALS: BP 117/53; O2SAT 97
--- NOTE | 2023-08-20 10:22 | ANESTHESIA PROCEDURE NOTE ---
Anesth Central Line Template - Central Line Central Line Preparation: Consent Obtained, Ultrasound used, Sterile prep and drape Central line location: Right Basilic Central line type: PICC Single Lumen Central line catheter tip site resides: Superior vena cava (SVC) Central line aftercare: Secured, Placement confirmed, No complications, Pt tolerated well Other Info/Details: After consent obtained, patient's right arm as prepped with chlorohexadine. Full sterile drape, gown, gloves and mask utilized. Right upper arm Insertion site localized with 3ml of 1% lidocaine. The right basilic vein was accessed with 18G needle under ultrasound guidance and wire advanced with ease. Peel-away sheath inserted with ease and wire removed. A 4Fr single lumen trimmed to 35cm was inserted and tip tracker indicated tip was directed towards the heart. Sheath removed and 0cms of catheter were exposed. Port aspirates blood and flushed with ease. Line secured with stat-lock and opsite. CXR confirmed tip was in the SVC. Patient tolerated well and was discharged in good condition.
--- NOTE | 2023-08-20 10:25 | XRAY Report ---
PROCEDURE: Chest for Line Placement INDICATIONS: post picc line placement TECHNIQUE: One view of the chest was acquired. COMPARISON: 07/07/2023. FINDINGS: Surgical changes and devices: Right PICC with tip projecting over the superior vena cava. Lungs and pleura: No pleural effusions or pneumothorax. Lungs are clear. Right costophrenic angle i s collimated from view. Mediastinum: Mediastinal contours appear normal. Heart size is normal. Bones and chest wall: No suspicious bony lesions. Overlying soft tissues appear unremarkable. IMPRESSION: No acute cardiopulmonary process. Right PICC with tip projecting over the superior vena cava. Reviewed by: Jony Goldberg MD on 08/20/2023 10:24 AM PST Approved by: Jony Goldberg MD on 08/20/2023 10:24 AM PST Station ID: [id number]
== END 2023-08-20 08:12 | disposition home or self-care (01) ==
LOC: SDS 08:11
PROVIDERS: ATTEND Nurse Anesthetist, Certified Registered
DX: M86.672 Other chronic osteomyelitis, left ankle and foot (principal)
CPT/HCPCS: 36569; C1751

== ENCOUNTER 2023-08-23 15:47 | Outpatient (CLI) | payer MEDICARE, MEDICAID ==
[2023-08-23 16:08] LABS: BASOPHILS % (AUTO) 0.2 %; EOSINOPHILS % (AUTO) 0.2 %; HCT - HEMATOCRIT 30.2 % (37.0-47.0); HGB - HEMOGLOBIN 8.9 g/dL (12.0-16.0); LYMPHOCYTES # (AUTO) 0.3 10^3/uL (1.5-3.5); LYMPHOCYTES % (AUTO) 5.4 %; MEAN CORPUSCULAR HEMOGLOBIN 31.2 pg (27.0-31.0); MEAN CORPUSCULAR HGB CONC 29.5 g/dL (32.0-36.0); MEAN PLATELET VOLUME 10.7 fL (7.9-10.8); MONOCYTES # (AUTO) 0.1 10^3/uL (0.0-1.0); NEUTROPHILS # (AUTO) 4.5 10^3/uL (1.5-6.6); NEUTROPHILS % (AUTO) 89.8 %; PLT - PLATELET COUNT 59 10^3/uL (130-450); RED BLOOD COUNT 2.85 10^6/uL (4.20-5.40); RED CELL DISTRIBUTION WIDTH 17.8 % (12.0-15.0)
[2023-08-23 16:31] LABS: ALBUMIN 3.1 g/dL (3.2-5.5); ALBUMIN/GLOBULIN RATIO 1.3 (1.0-2.2); BILIRUBIN,TOTAL 0.7 mg/dL (0.2-1.0); CALCIUM 8.4 mg/dL (8.5-10.3); CREATININE 1.3 mg/dL (0.6-1.3); POTASSIUM 3.7 mmol/L (3.5-4.5); TOTAL PROTEIN 5.5 g/dL (6.4-8.9)
== END 2023-08-23 15:48 | disposition home or self-care (01) ==
LOC: LAB.R 15:47
PROVIDERS: ATTEND Registered Nurse
DX: I50.32 Chronic diastolic (congestive) heart failure (principal); D64.9 Anemia, unspecified; B95.62 Methicillin resistant Staphylococcus aureus infection as the cause of diseases classified elsewhere
CPT/HCPCS: 80053; 85025; 85651; 86140

== ENCOUNTER 2023-08-26 15:34 | Outpatient (CLI) | payer MEDICARE, MEDICAID ==
[2023-08-26 15:45] LABS: BASOPHILS % (AUTO) 0.2 %; EOSINOPHILS % (AUTO) 0.3 %; HCT - HEMATOCRIT 28.8 % (37.0-47.0); HGB - HEMOGLOBIN 8.6 g/dL (12.0-16.0); LYMPHOCYTES # (AUTO) 0.3 10^3/uL (1.5-3.5); LYMPHOCYTES % (AUTO) 4.9 %; MEAN CORPUSCULAR HGB CONC 29.9 g/dL (32.0-36.0); MEAN CORPUSCULAR VOLUME 107.1 fL (81.0-99.0); MEAN PLATELET VOLUME 10.9 fL (7.9-10.8); MONOCYTES # (AUTO) 0.1 10^3/uL (0.0-1.0); MONOCYTES % (AUTO) 1.5 %; NEUTROPHILS # (AUTO) 5.3 10^3/uL (1.5-6.6); NEUTROPHILS % (AUTO) 91.1 %; NRBC ABSOLUTE COUNT (AUTO) 0.02 x10^3/uL; NUCLEATED RED BLOOD CELLS AUTO 0.3 /100WBC; PLT - PLATELET COUNT 63 10^3/uL (130-450); RED BLOOD COUNT 2.69 10^6/uL (4.20-5.40); RED CELL DISTRIBUTION WIDTH 18.1 % (12.0-15.0); WHITE BLOOD COUNT 5.9 x10^3/uL (4.8-10.8)
[2023-08-26 15:57] LABS: CREATININE 1.3 mg/dL (0.6-1.3)
== END 2023-08-26 15:35 | disposition home or self-care (01) ==
LOC: LAB.R 15:34
PROVIDERS: ATTEND Registered Nurse
DX: R78.89 Finding of other specified substances, not normally found in blood (principal); M86.672 Other chronic osteomyelitis, left ankle and foot; D64.9 Anemia, unspecified; E78.5 Hyperlipidemia, unspecified; I12.9 Hypertensive chronic kidney disease with stage 1 through stage 4 chronic kidney disease, or unspecified chronic kidney disease; N18.9 Chronic kidney disease, unspecified
CPT/HCPCS: 82565; 84520; 85025; 85651

== ENCOUNTER 2023-08-27 08:07 | Outpatient (CLI) | payer MEDICARE, MEDICAID ==
[2023-08-27 08:48] LABS: VANCOMYCIN,TROUGH 16.8 ug/mL
== END 2023-08-27 08:08 | disposition home or self-care (01) ==
LOC: LAB.R 08:07
PROVIDERS: ATTEND Registered Nurse
DX: M86.9 Osteomyelitis, unspecified (principal); B95.62 Methicillin resistant Staphylococcus aureus infection as the cause of diseases classified elsewhere
CPT/HCPCS: 80202

== ENCOUNTER 2023-09-01 08:00 | Outpatient (CLI) | payer MEDICARE, MEDICAID ==
[2023-09-01 08:25] LABS: CREATININE 1.3 mg/dL (0.6-1.3); GFR - MDRD 39 (>89); VANCOMYCIN,TROUGH 23.8 ug/mL
== END 2023-09-01 23:59 | disposition home or self-care (01) ==
LOC: LAB.R 08:00
PROVIDERS: ATTEND Registered Nurse
DX: M86.672 Other chronic osteomyelitis, left ankle and foot (principal); B95.62 Methicillin resistant Staphylococcus aureus infection as the cause of diseases classified elsewhere
CPT/HCPCS: 80202; 82565

== ENCOUNTER 2023-09-02 11:22 | Outpatient (CLI) | payer MEDICARE, MEDICAID ==
[2023-09-02 11:47] LABS: CREATININE 1.3 mg/dL (0.6-1.3); GFR - MDRD 39 (>89); VANCOMYCIN,TROUGH 16.7 ug/mL
[2023-09-02 19:10] LABS: EOSINOPHILS % (AUTO) 0.3 %; HCT - HEMATOCRIT 28.7 % (37.0-47.0); HGB - HEMOGLOBIN 8.8 g/dL (12.0-16.0); LYMPHOCYTES # (AUTO) 0.4 10^3/uL (1.5-3.5); LYMPHOCYTES % (AUTO) 5.5 %; MEAN CORPUSCULAR HEMOGLOBIN 33.2 pg (27.0-31.0); MEAN CORPUSCULAR HGB CONC 30.7 g/dL (32.0-36.0); MEAN CORPUSCULAR VOLUME 108.3 fL (81.0-99.0); MEAN PLATELET VOLUME 10.5 fL (7.9-10.8); MONOCYTES # (AUTO) 0.1 10^3/uL (0.0-1.0); MONOCYTES % (AUTO) 1.9 %; NEUTROPHILS # (AUTO) 6.2 10^3/uL (1.5-6.6); NEUTROPHILS % (AUTO) 90.4 %; PLT - PLATELET COUNT 84 10^3/uL (130-450); RED BLOOD COUNT 2.65 10^6/uL (4.20-5.40); RED CELL DISTRIBUTION WIDTH 18.5 % (12.0-15.0); WHITE BLOOD COUNT 6.9 x10^3/uL (4.8-10.8)
[2023-09-02 19:19] LABS: CREATININE 1.3 mg/dL (0.6-1.3)
== END 2023-09-02 11:23 | disposition home or self-care (01) ==
LOC: LAB 11:22
PROVIDERS: ATTEND Registered Nurse
DX: L08.9 Local infection of the skin and subcutaneous tissue, unspecified (principal); B95.62 Methicillin resistant Staphylococcus aureus infection as the cause of diseases classified elsewhere; N18.9 Chronic kidney disease, unspecified; R94.4 Abnormal results of kidney function studies; I10 Essential (primary) hypertension; R79.89 Other specified abnormal findings of blood chemistry; R79.0 Abnormal level of blood mineral; M86.672 Other chronic osteomyelitis, left ankle and foot; D64.9 Anemia, unspecified
CPT/HCPCS: 36415; 80202; 82565; 84520; 85025; 85651

== ENCOUNTER 2023-09-23 10:41 | Outpatient (CLI) | payer MEDICARE, MEDICAID | END 2023-09-23 23:59 | disposition critical access hospital (66) | LOC: EMS 10:41 | DX: R06.00 Dyspnea, unspecified (principal); R41.82 Altered mental status, unspecified; Z99.81 Dependence on supplemental oxygen | CPT/HCPCS: A0425; A0427 ==

== ENCOUNTER 2023-09-23 10:47 | Inpatient (IN) | payer MEDICARE, MEDICAID ==
--- NOTE | 2023-09-23 10:54 | ED Physician Documentation ---
PD HPI DYSPNEA - Stated complaint Stated Complaint: SOA/CPAP - History obtained from History obtained from: Patient, EMS (Medic states they placed pt on CPAP due to work of breathing, as was not hypoxic on the 4 lpm NC on their arrival, but relatively low at 90-94%. Pt with improved work of breathing on the CPAP and with duoneb x 2 enroute.), Caregiver - History of Present Illness Timing - onset: How many days ago (2-3) Timing - duration: Days (Report from medics and relayed info from caregivers as the patient had some decreased alertness and increased work of breathing for the last day or 2. Much more noticeable overnight and poorly responsive this morning. Given extra nebulizer treatment without improvement. Increased O2 from 2 to 4 l) Timing - details: Abrupt onset, Still present Inciting event(s): URI Improved by: Inhaler/neb (mildly though initially, with better improved after few nebs cumulatively.). No: O2 Associated symptoms: Cough. No: Wheezing, Bilateral edema Similar symptoms before: Diagnosis (oneumonia few years ago with similar CXR.) Recently seen: Not recently seen Review of Systems Unable to obtain: AMS PD PAST MEDICAL HISTORY - Past Medical History Cardiovascular: Hypertension, High cholesterol Respiratory: COPD Endocrine/Autoimmune: HyPOthyroidism GI: Chronic diarrhea : Incontinence, Nocturia HEENT: Chronic hearing loss Psych: Depression Musculoskeletal: Osteoporosis Derm: None - Past Surgical History Past Surgical History: Yes Ortho: Other HEENT: Cataracts - Present Medications Home Medications: Ambulatory Orders Medication Instructions Recorded Confirmed Fluoxetine HCl 20 mg PO DAILY 12/16/13 09/23/23 Levothyroxine Sodium [Levoxyl] 100 mcg PO QDAC 12/16/13 09/23/23 Losartan [Cozaar] 50 mg PO DAILY 07/31/17 09/23/23 Ascorbic Acid [Vitamin C] 500 mg PO DAILY 07/03/23 09/23/23 Ferrous Sulfate [Feosol] 325 mg PO DAILY 07/03/23 09/23/23 Furosemide [Lasix] 20 mg PO DAILY 07/03/23 09/23/23 Hydrocodone/Acetaminophen 1 each PO Q4H PRN 07/03/23 09/23/23 [Hydrocodone-Acetamin 5-300 mg] Metoprolol Tartrate [Lopressor] 25 mg PO BID 07/03/23 09/23/23 Albuterol Sulf [Ventolin Hfa 2 puffs INH Q4HR PRN 09/23/23 09/23/23 Inhaler] Atorvastatin Calcium 40 mg PO DAILY 09/23/23 09/23/23 Ergocalciferol (Vitamin D2) 1 cap PO UD 09/23/23 09/23/23 [Drisdol] Mirtazapine 7.5 mg PO HS 09/23/23 09/23/23 Multivitamin [Theragran] 1 tab PO DAILY 09/23/23 09/23/23 Pantoprazole Sodium 40 mg PO DAILY 09/23/23 09/23/23 predniSONE [Deltasone] 40 mg PO DAILY 09/23/23 09/23/23 - Allergies Allergies/Adverse Reactions: Allergies Allergy/AdvReac Type Severity Reaction Status Date / Time No Known Drug Allergies Allergy Verified 09/23/23 11:00 - Social History Does the pt smoke?: Yes Smoking Status: Current every day smoker Does the pt drink ETOH?: Yes Does the pt have substance abuse?: No - POLST Patient has POLST: No POLST Status: Full Code PD ED PE NORMAL - Vitals Vital signs reviewed: Yes - General General: Well developed/nourished, Other (has some increased work of breathing. Wheezing noted. Arrives on CPAP and changed to our BiPap, with marginaly sats already at 90-94% on that. Improved with some upright positioning and repeat neb. ) - HEENT HEENT: Moist mucous membranes, Pharynx benign - Neck Neck: Supple, no meningeal sign, No adenopathy, No JVD - Cardiac Cardiac: No murmur. No: RRR (mild tachycardia that is regular. ) - Respiratory Respiratory: No: Clear bilaterally (decreased with coarse sounds right mid to upper lobe area. Diffuse exp wheezing and decreased tidal volume otherwise rest of lung bergman.) - Abdomen Abdomen: Soft, Non tender, Non distended. No: Normal bowel sounds (diminished) - Derm Derm: Normal color, Warm and dry - Extremities Extremities: No edema, No calf tenderness / cord - Neuro Neuro: No motor deficit, Normal speech. No: Alert and oriented X 3 (opens eyes and some conversant but no more than single/few words at a time. ) Eye Opening: To Voice Motor: Obeys Commands Verbal: Confused GCS Score: 13 Results - Vitals Vitals: Vital Signs - 24 hr 09/23/23 09/23/23 09/23/23 10:54 10:55 11:36 Temperature 36.0 C L Heart Rate 100 103 H 92 Respiratory 26 H 24 Rate Blood Pressure 106/53 L 67/44 L O2 Saturation 88 L 85 L 09/23/23 09/23/23 09/23/23 12:05 12:09 12:51 Temperature Heart Rate 97 97 106 H Respiratory 26 H 24 30 H Rate Blood Pressure 92/50 L 87/59 L O2 Saturation Oxygen O2 Source [With Activity] Room air O2 Source [Without Activity] Room air O2 Source Patient supplied BIPAP - EKG (time done) 10:59 EKG releavant findings:: EKG personally interpreted by author of this note. Relevant findings are: Rate: Rate (enter#) (100) Rhythm: NSR [place]: Normal QRS: LVH (with secondary changes. ) Ischemia: Non specific changes. No: ST elevation c/w ischemia, ST depression Compare to prior EKG: Unchanged from prior EKG - Labs Labs: Laboratory Tests 09/23/23 09/23/23 09/23/23 11:05 11:05 11:05 WBC 5.8 RBC 2.99 L Hgb 10.1 L Hct 34.1 L MCV 114.0 H MCH 33.8 H MCHC 29.6 L RDW 19.1 H Plt Count 58 L MPV 9.9 Neut # (Auto) Not Reportable Lymph # (Auto) Not Reportable Dickenson # (Auto) Not Reportable Eos # (Auto) Not Reportable Baso # (Auto) Not Reportable Absolute Nucleated RBC Not Reportable Total Counted 100 Band Neuts % (Manual) 24 H Abnorm Lymph % (Manual) 0 Metamyelocytes % 6 H Nucleated RBC % Not Reportable Neutrophils # (Manual) 4.6 Lymphocytes # (Manual) 0.5 L Monocytes # (Manual) 0.3 Eosinophils # (Manual) 0.0 Basophils # (Manual) 0.0 Differential Comment MANUAL DIFFERENTIAL Platelet Estimate DECREASED (<130,000) Platelet Morphology NORMAL APPEARANCE RBC Morph Micro Appear 2+ MACROCYTOSIS Bld Gas Analysis Time Sample Site ABG pH ABG pCO2 ABG pO2 ABG HCO3 ABG Total CO2 ABG O2 Saturation ABG Base Excess Felipe Test O2 Delivery Device FiO2 EPAP IPAP Sodium 146 H Potassium 3.8 Chloride 111 Carbon Dioxide 19 L Anion Gap 16.0 H BUN 61 H Creatinine 1.9 H Estimated GFR (MDRD) 25 L Glucose 124 H Lactic Acid Calcium 8.8 Magnesium 1.4 L Total Bilirubin 0.7 AST 61 H ALT 214 H Alkaline Phosphatase 70 B-Natriuretic Peptide 4507 H Total Protein 5.0 L Albumin 2.9 L Globulin 2.1 Albumin/Globulin Ratio 1.4 Lipase < 10 L Nasal Adenovirus (PCR) Nasal B. parapertussis DNA (PCR) Nasal Coronavir 229E PCR Nasal Coronavir HKU1 PCR Nasal Coronavir NL63 PCR Nasal Coronavir OC43 PCR Nasal Enterovir/Rhinovir PCR Nasal Influenza B PCR Nasal Influenza A PCR Nasal Parainfluen 1 PCR Nasal Parainfluen 2 PCR Nasal Parainfluen 3 PCR Nasal Parainfluen 4 PCR Nasal RSV (PCR) Nasal B.pertussis DNA PCR Nasal C.pneumoniae (PCR) John Human Metapneumo PCR Nasal M.pneumoniae (PCR) Nasal SARS-CoV-2 (PCR) 09/23/23 09/23/23 09/23/23 11:20 11:47 12:17 WBC RBC Hgb Hct MCV MCH MCHC RDW Plt Count MPV Neut # (Auto) Lymph # (Auto) Dickenson # (Auto) Eos # (Auto) Baso # (Auto) Absolute Nucleated RBC Total Counted Band Neuts % (Manual) Abnorm Lymph % (Manual) Metamyelocytes % Nucleated RBC % Neutrophils # (Manual) Lymphocytes # (Manual) Monocytes # (Manual) Eosinophils # (Manual) Basophils # (Manual) Differential Comment Platelet Estimate Platelet Morphology RBC Morph Micro Appear Bld Gas Analysis Time 1153 Sample Site LEFT BRACHIAL ABG pH 7.28 L ABG pCO2 34 ABG pO2 65 L ABG HCO3 15.6 L ABG Total CO2 16.6 L ABG O2 Saturation 92 L ABG Base Excess -10.2 L Felipe Test NOT APPLICABLE O2 Delivery Device BiPAP FiO2 30.00 EPAP 5 IPAP 10 Sodium Potassium Chloride Carbon Dioxide Anion Gap BUN Creatinine Estimated GFR (MDRD) Glucose Lactic Acid 7.6 H* Calcium Magnesium Total Bilirubin AST ALT Alkaline Phosphatase B-Natriuretic Peptide Total Protein Albumin Globulin Albumin/Globulin Ratio Lipase Nasal Adenovirus (PCR) NOT DETECTED Nasal B. parapertussis DNA (PCR) NOT DETECTED Nasal Coronavir 229E PCR NOT DETECTED Nasal Coronavir HKU1 PCR NOT DETECTED Nasal Coronavir NL63 PCR NOT DETECTED Nasal Coronavir OC43 PCR NOT DETECTED Nasal Enterovir/Rhinovir PCR NOT DETECTED Nasal Influenza B PCR NOT DETECTED Nasal Influenza A PCR NOT DETECTED Nasal Parainfluen 1 PCR NOT DETECTED Nasal Parainfluen 2 PCR NOT DETECTED Nasal Parainfluen 3 PCR NOT DETECTED Nasal Parainfluen 4 PCR NOT DETECTED Nasal RSV (PCR) NOT DETECTED Nasal B.pertussis DNA PCR NOT DETECTED Nasal C.pneumoniae (PCR) NOT DETECTED John Human Metapneumo PCR NOT DETECTED Nasal M.pneumoniae (PCR) NOT DETECTED Nasal SARS-CoV-2 (PCR) NOT DETECTED - Rads (name of study) chest xray Relevant Findings:: Prelim report reviewed, EMP independent interpretation of test (dense consolidation right upper lobe. No noted effusion. No PTX. ) chest angio Relevant Findings:: Prelim report reviewed, EMP independent interpretation of test (significant hypoxia and dense infiltrate right upper, I ordered CT-A chest to eval for large PE, obstrutive mass, etc. Report still pending at time of admission. ) PD Medical Decision Making - ED course Complexity details: reviewed results (chest xray showing dense consolidation Right upper lobe. WBC normal. Anemic with HGB 10, which is about baseline. Renal insufficiency chronic with Cr 1.9 up from 1.3 just 2 weeks ago. BNP 4500, but does not seem in CHF. Could related to heart strain from the pneumonia/hypoxia. ), re-evaluated patient (improved sats and work of breathing after nebs further, steroids, and the BiPAP. Still concern for sats that are adequate but needing 30% oxygen and BiPAP to maintain that. Critical condition. Soft BP with mild Hypotension. I don't feel BiPAP settings are affecting it. She is usually on steroids. ), considered differential (possible viral URI/pneumonia, bacterial pneumonia, CHF, PE, PTX among other causes of respiratory probems. ), d/w patient, d/w treasury consultant (Hospitalist) ED course: She was gvien IV fluids for BP suppport. Does not appear CHF at this time, without edema/failure appearance. She does have some elevated BNP and usually takes furosemide, but I beleive main effect is the pneumonia. Given IV fluids as well. She does have a PICC line in from few months ago for ? staph infecction. This is being used. Consider pressor suuport if BP doesnot improved with fluids. It did improve to MAP of 61, so adequate. She may have some element of Addisoninan effect since on Pred 20 mg daily usually. I had given Solumedrol 125 mg IV, but with discussion with Hospitalist, likely give more. I covered pneumonia with Levoquin since she is in health care SNF. - Critical Care Time(min): 55 Time Includes: Direct patient care, Document care, Coordinate care, Medical consult Data interpretation: Labs, Pulse ox, ABG, CXR Procedures excluded from critical care time: EKG Departure - Departure Disposition: 66 [facility] DC/Xfer Clinical Impression: Pneumonia, Dyspnea, Acute exacerbation of COPD with asthma, Right upper lobe pulmonary infiltrate, Hypoxia, Sepsis Condition: Critical Discharge Date/Time: 09/23/23 14:07
[2023-09-23] MEDS: methylPREDNISolone SUCCINATE 125 MG/2 ML VIAL IVP STA (11:11)
[2023-09-23] MEDS: SODIUM CHLORIDE 0.9% 1,000 ML IV STA (11:37)
[2023-09-23 11:38] LABS: BASOPHILS % (AUTO) 0.7 %; HCT - HEMATOCRIT 34.1 % (37.0-47.0); HGB - HEMOGLOBIN 10.1 g/dL (12.0-16.0); MEAN CORPUSCULAR HEMOGLOBIN 33.8 pg (27.0-31.0); MEAN CORPUSCULAR HGB CONC 29.6 g/dL (32.0-36.0); MEAN PLATELET VOLUME 9.9 fL (7.9-10.8); MONOCYTES % (AUTO) 5.2 %; NEUTROPHILS % (AUTO) 85.6 %; PLT - PLATELET COUNT 58 10^3/uL (130-450); RED BLOOD COUNT 2.99 10^6/uL (4.20-5.40); RED CELL DISTRIBUTION WIDTH 19.1 % (12.0-15.0); WHITE BLOOD COUNT 5.8 x10^3/uL (4.8-10.8)
[2023-09-23 11:39] LABS: ABNORMAL LYMPHS % (MANUAL) 0 %
[2023-09-23 11:44] LABS: BAND NEUTROPHILS % (MANUAL) 24 %; LYMPHOCYTES # (MANUAL) 0.5 10^3/uL (1.5-3.5); LYMPHOCYTES % (MANUAL) 8 %; METAMYELOCYTES % (MANUAL) 6 %; MONOCYTES # (MANUAL) 0.3 10^3/uL (0.0-1.0); NEUTROPHILS # (MANUAL) 4.6 10^3/uL (1.5-6.6)
[2023-09-23 11:45] LABS: DIFFERENTIAL COMMENT MANUAL DIFFERENTIAL; PLATELET ESTIMATE, MANUAL DECREASED (<130,000) (NORMAL); PLATELET MORPHOLOGY NORMAL APPEARANCE (NORMAL); RBC MORPHOLOGY (MULTIPLE) 2+ MACROCYTOSIS (NORMAL)
[2023-09-23 11:53] LABS: MAGNESIUM 1.4 mg/dL (1.7-2.3)
[2023-09-23 11:56] LABS: ABG PH 7.28 (7.35-7.45)
[2023-09-23 11:57] LABS: ABG BASE EXCESS -10.2 mmol/L (-2.0-3.0); ABG HCO3 15.6 mmol/L (22.0-26.0); ABG OXYGEN SATURATION 92 % (94-98); ABG PCO2 34 mmHg (34-45); ABG PO2 65 mmHg (80-100); ABG TCO2 16.6 MMOL/L (21.0-29.0)
[2023-09-23 12:02] LABS: ALBUMIN 2.9 g/dL (3.2-5.5); ALBUMIN/GLOBULIN RATIO 1.4 (1.0-2.2); ALKALINE PHOSPHATASE 70 IU/L (42-121); ALT ALANINE AMINOTRANSFERASE 214 IU/L (10-60); AST ASPARTATE AMINOTRANSFERASE 61 IU/L (10-42); BILIRUBIN,TOTAL 0.7 mg/dL (0.2-1.0); BUN - BLOOD UREA NITROGEN 61 mg/dL (6-20); CALCIUM 8.8 mg/dL (8.5-10.3); CARBON DIOXIDE - CO2 19 mmol/L (21-32); CHLORIDE 111 mmol/L (101-111); CREATININE 1.9 mg/dL (0.6-1.3); GFR - MDRD 25 (>89); GLUCOSE 124 mg/dL (74-104); LIPASE < 10 U/L (11-82); POTASSIUM 3.8 mmol/L (3.5-4.5); SODIUM 146 mmol/L (135-145)
[2023-09-23] MEDS: ALBUTEROL NEB 2.5 MG/3 ML INH STA (12:05)
[2023-09-23] MEDS: levoFLOXacin 750 MG/150 ML 750 MG/150 ML BAG IV STA (12:30)
[2023-09-23 12:41] LABS: B. PARAPERTUSSIS- RESP PCR PAN NOT DETECTED; B. PERTUSSIS- RESP PCR PANEL NOT DETECTED; C. PNEUMONIAE- RESP PCR PANEL NOT DETECTED; CORONAVIRUS 229E-RESP PCR NOT DETECTED; CORONAVIRUS HKU1-RESP PCR NOT DETECTED; CORONAVIRUS NL63-RESP PCR NOT DETECTED; CORONAVIRUS OC43-RESP PCR NOT DETECTED; HUMAN METAPNEUMOVIRUS NOT DETECTED; INFLUENZA A- RESP PCR PANEL NOT DETECTED; INFLUENZA B - RESP PCR PANEL NOT DETECTED; M. PNEUMONIAE- RESP PCR PANEL NOT DETECTED; PARAINFLUENZA VIRUS 1 NOT DETECTED; PARAINFLUENZA VIRUS 2 NOT DETECTED; PARAINFLUENZA VIRUS 3 NOT DETECTED; PARAINFLUENZA VIRUS 4 NOT DETECTED; RHINOVIRUS/ENTEROVIRUS NOT DETECTED; RSV- RESP PCR PANEL NOT DETECTED; SARS-CoV-2 -RESP PCR PANEL NOT DETECTED
--- NOTE | 2023-09-23 12:44 | XRAY Report ---
PROCEDURE: Chest 1V INDICATIONS: chest pain TECHNIQUE: One view of the chest was acquired. COMPARISON: 07/07/2023 FINDINGS: Surgical changes and devices: None. Lungs and pleura: Dense consolidation projects over the right upper lobe. Mild perihilar opacities a lso seen. No drainable pleural effusion. Possible nodule in the left midlung. Mediastinum: Normal heart size Bones and chest wall: Unremarkable IMPRESSION: Dense consolidation in the right upper lobe, suspicious for infection. An underlying mass is possible . Possible nodule versus overlapping calcified costal cartilage in the left midlung. Consider CT surveillance imaging. Reviewed by: Deniz Valencia MD on 09/23/2023 12:42 PM PDT Approved by: Deniz Valencia MD on 09/23/2023 12:42 PM PDT Station ID: [id number]
[2023-09-23] MEDS ORDERED: iohexoL-300 100 ML VIAL ONE (13:00)
[2023-09-23] MEDS ORDERED: SODIUM CHLORIDE FLUSH 0.9% 10 ML SYRINGE IVP PRN (13:13)
[2023-09-23] MEDS ORDERED: ONDANSETRON ODT 4 MG TABLET TL PRN (13:13)
[2023-09-23] MEDS ORDERED: ACETAMINOPHEN 325 MG TABLET PO PRN (13:13)
[2023-09-23] MEDS ORDERED: HYDROcod/ACETAM 5/325 MG TABLET PO PRN (13:13)
[2023-09-23] MEDS ORDERED: ONDANSETRON 4 MG/2 ML VIAL IVP PRN (13:13)
[2023-09-23] MEDS: SODIUM CHLORIDE 0.9% 500 ML IV STA (13:29)
[2023-09-23] MEDS: SODIUM CHLORIDE 0.9% 1,000 ML IV SCH (14:11)
[2023-09-23] MEDS: NOREPINEPHRINE/0.9 % NS 8 MG/250 ML BAG IV SCH (14:20)
[2023-09-23] MEDS: HYDROCORTISONE SUCCINATE 100 MG/2 ML VIAL IVP SCH (14:30)
--- NOTE | 2023-09-23 14:58 | CT Report ---
PROCEDURE: Angio Chest INDICATIONS: dyspnea, RUL white out, hypoxia, hypotension. CONTRAST: Omni 300 80ml TECHNIQUE: After the administration of intravenous contrast, 2 mm axial images were acquired from the pulmonary apices to the posterior costophrenic angles during the arterial phase. In addition, 1 mm lung kernel and 5 mm soft tissue kernel reconstructions were performed. 3-dimensional coronal oblique maximum int ensity projection (MIP) reformats, 8 mm axial MIP, and 5 mm coronal and sagittal MPR reformats were t hen performed through the thorax. For radiation dose reduction, the following was used: automated exp osure control, adjustment of mA and/or kV according to patient size. COMPARISON: Same-day radiograph, 07/07/2023 CT FINDINGS: Image quality: Diagnostic Lungs and pleura:Dense consolidation of the right upper lobe, extending to the medial region of the r ight lower lobe. No drainable pleural effusions. Other nodules are present, for example in the left m idlung measuring 1.2 cm in a subpleural region. Mediastinum, heart, and esophagus: No acute pulmonary embolism. No pathologic lymph nodes by size criteria. Coronary calcifications. Chest wall and thyroid: There is a right central line terminating in the SVC. Thyroid is not well see n. Chest wall is unremarkable. Upper abdomen: Irregular liver contour suggestive of chronic liver disease. Possible pneumobilia. Adr enal thickening. No gross abnormality elsewhere on this arterial phase study. Bones: Degenerative changes. Increased height loss and possible acute component of fracture at T12. IMPRESSION: Dense consolidation of the right upper lobe, extending to the medial portion on the right lower lobe. There are other bilateral pulmonary nodules. These likely represent pneumonia. Underlying mass/nodul es is possible and follow-up imaging is recommended. No pleural effusions. No acute pulmonary neoplas m. Reviewed by: Deniz Valencia MD on 09/23/2023 2:57 PM PDT Approved by: Deniz Valencia MD on 09/23/2023 2:57 PM PDT Station ID: [id number]
--- NOTE | 2023-09-23 15:01 | HISTORY & PHYSICAL EXAMINATION ---
Chief Complaint - Chief Complaint Chief Complaint: Shortness of breath History of Present Illness - Admitted From Admitted From:: ED - History Obtained From Records Reviewed: Yes History obtained from: Chart, Family, ED physician Exam Limitations: Yes, BiPAP - History of Present Illness HPI Comment/Other: Patient is an 83-year-old female with past medical history of left ankle osteomyelitis, PVD, hypertension, hyperlipidemia, COPD chronically on 2 L of oxygen, hypothyroidism, CKD 3, thrombocytopenia, MDD/anxiety who presented from [facility] via EMS due to increased work of breathing over the last 2 days. En route patient was given a nebulizer treatment without improvement in her oxygen demand increased from her home 2 L to 4 L. Upon presentation to the ED she was noted to be hypotensive. She was placed on BiPAP due to hypoxia. An ABG was performed showing evidence of metabolic acidosis. Chest x-ray showed right upper lobe infiltrate. CT chest showing dense consolidation in the right upper lobe extending to the medial portion of the right lower lobe. She was started on IV levofloxacin 750 mg and given 1.5 L of normal saline. Initial lactic acid was 7.9. Of note, patient does have a PICC line in her right side projecting over the SVC. This was being used for IV vancomycin for a positive wound culture for MRSA. She also had an MRI revealing osteomyelitis of her left foot. She recieved 2 weeks of IV vancomycin per last wound care note. History was difficult to obtain from the patient due to her being on BiPAP and lethargy. I did reach out to her brother whose phone number is in the EMR. We discussed her CODE STATUS which is currently full code and he did not want to change it at this time. He was able to provide me phone numbers for her children which were not in service. History - Past Medical History Cardiovascular: reports: Hypertension, High cholesterol Respiratory: reports: COPD Endocrine/Autoimmune: reports: HyPOthyroidism GI: reports: Chronic diarrhea : reports: Incontinence, Nocturia HEENT: reports: Chronic hearing loss Psych: reports: Depression Musculoskeletal: reports: Osteoporosis Derm: reports: None MRSA Hx?: No - Past Surgical History Ortho: reports: Other HEENT: reports: Cataracts - Family & Social History Family History: Mother: , Father: Family History Comment/Other: Family history may not contribute. Patient has 2 grown children, and an astranged . 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 She has lived on the [place] years. Unknown coarse of events related to that is listed in the chart. Per caregiver, she does not know why they are astranged. The patient has a cat at home, and has known to be a daily everyday smoker. She attends every 3 month check ups at her PCP's office for chronic oxycodone refills and was just seen 8 days ago. - Substance History Use: Uses substance without health or social issues: NONE - POLST Patient has POLST: No POLST Status: Full Code Meds/Allgy - Home Medications Home Medications: Ambulatory Orders Medication Instructions Recorded Confirmed Fluoxetine HCl 20 mg PO DAILY 12/16/13 09/23/23 Levothyroxine Sodium [Levoxyl] 100 mcg PO QDAC 12/16/13 09/23/23 Losartan [Cozaar] 50 mg PO DAILY 07/31/17 09/23/23 Ascorbic Acid [Vitamin C] 500 mg PO DAILY 07/03/23 09/23/23 Ferrous Sulfate [Feosol] 325 mg PO DAILY 07/03/23 09/23/23 Furosemide [Lasix] 20 mg PO DAILY 07/03/23 09/23/23 Hydrocodone/Acetaminophen 1 each PO Q4H PRN 07/03/23 09/23/23 [Hydrocodone-Acetamin 5-300 mg] Metoprolol Tartrate [Lopressor] 25 mg PO BID 07/03/23 09/23/23 Albuterol Sulf [Ventolin Hfa 2 puffs INH Q4HR PRN 09/23/23 09/23/23 Inhaler] Atorvastatin Calcium 40 mg PO DAILY 09/23/23 09/23/23 Ergocalciferol (Vitamin D2) 1 cap PO UD 09/23/23 09/23/23 [Drisdol] Mirtazapine 7.5 mg PO HS 09/23/23 09/23/23 Multivitamin [Theragran] 1 tab PO DAILY 09/23/23 09/23/23 Pantoprazole Sodium 40 mg PO DAILY 09/23/23 09/23/23 predniSONE [Deltasone] 40 mg PO DAILY 09/23/23 09/23/23 - Allergies Allergies/Adverse Reactions: Allergies Allergy/AdvReac Type Severity Reaction Status Date / Time No Known Drug Allergies Allergy Verified 09/23/23 11:00 Review of Systems - Constitutional Constitutional: reports: Weakness - Respiratory Respiratory: reports: SOB at rest - All Other Systems All Other Systems: reports: Reviewed and negative Prior Level of Functionality: Resides at [facility]. Exam - Vital Signs Reviewed Vital Signs: Yes Vital Signs: Vital Signs x48h Temp Pulse Pulse Resp BP BP Pulse Ox 09/23/23 14:41 36.4 C L 122 H 22 109/81 H 77 L 09/23/23 13:22 106 H 22 85/48 L 98 09/23/23 12:51 106 H 30 H 87/59 L 09/23/23 12:09 97 24 09/23/23 12:05 97 26 H 92/50 L 09/23/23 11:36 92 24 67/44 L 85 L 09/23/23 10:55 36.0 C L 103 H 26 H 106/53 L 88 L 09/23/23 10:54 100 - Physical Exam General Appearance: positive: Moderate distress Eyes Bilateral: positive: Normal inspection, PERRL, EOMI Respiratory: positive: Chest non-tender, Rales. negative: No respiratory distress, Wheezes Cardiovascular: positive: No murmur, No gallop, Tachycardia Abdomen: positive: Non-tender, No organomegaly, Nml bowel sounds, No distention Extremities: positive: Non-tender, No pedal edema Neurologic/Psychiatric: positive: Weakness Conclusion/Plan - Problem List (1) Septic shock Conclusion/Plan: --Septic shock secondary to right upper lobe pneumonia as evidenced on CT scan. Radiologist did recommend repeat CT scan to ensure resolution. --Blood, respiratory, and urine cultures ordered. --Trending lactic acid until clearance. --Started on broad-spectrum antibiotics with azithromycin, vancomycin and meropenem. She received IV vancomycin for 2 weeks in the last 90 days.Has been initiated on --Started on Levophed; she was unable to maintain MAP over 65 despite adequate fluid resuscitation. --We were able to obtain a stat echo with a preliminary read. She does appear to have some aortic stenosis as well as high right-sided pressures. Awaiting final report. --Some concern for adrenal insufficiency as she is chronically on Prednisone 20 mg daily for COPD. Initiated on hydrocortisone IV 50 mg every 6 hours. (2) HAN (acute kidney injury) Conclusion/Plan: --Etiology likely prerenal due to poor renal perfusion in setting of septic shock. --Baseline creatinine appears to be near 1.3. She has been given adequate fluids. Will attempt to maintain her pressures with a MAP above 65. Repeat BMP in AM. (3) Acute exacerbation of COPD with asthma Conclusion/Plan: --History of COPD which is end-stage and chronically on 2 L of oxygen. --She is also chronically on prednisone 20 mg daily. --Started on scheduled DuoNeb. --Will hold her home prednisone and start her on Solu-Cortef 50 mg every 6 hours as a stress dose. (4) Hypoxia Conclusion/Plan: --TTE reviewed, moderate and increased right sided pressures. Will await final read. She does have a history of HFpEF, close monitoring of I/O's. --I have held her home lasix. (5) Non-pressure chronic ulcer of other part of left foot with necrosis of bone Conclusion/Plan: --MRI from July showing left lower extremity osteomyelitis. She received 2 weeks of IV vancomycin through PICC line. --Follows with wound clinic. (6) Right upper lobe pneumonia Conclusion/Plan: --Continue antibiotics as above. --Will treat this as hospital-acquired pneumonia given she received IV vancomycin within the last month. (7) Thrombocytopenia, unspecified Conclusion/Plan: --Patient has bicytopenia with a low hemoglobin and platelet count. --History of bicytopenia with anemia and thrombocytopenia. --Follows with Hematology who has recommended a bone marrow biopsy if her PLT count continues to drop. They believe thrombocytopenia due to her foot infection. --Continue oral iron therapy. --I have started Lovenox for DVT prophylaxis. Daily CBC to monitor blood counts. (8) Hypothyroidism Conclusion/Plan: --Continue levothyroxine. TSH in AM. (9) Hyperlipidemia Conclusion/Plan: --Continue atorvastatin. (10) MDD (major depressive disorder) Conclusion/Plan: --Continue mirtazepine and fluoxetine. (11) HTN (hypertension) Conclusion/Plan: --Holding home antihypertensives. - Lab Results Fish Bones: 09/23/23 11:05 09/23/23 11:05 - Diagnostic Imaging Results Diagnostic Imaging Results: positive: Final report reviewed
[2023-09-23] MEDS ORDERED: MAGNESIUM SULFATE 4 GM in SODIUM CHLORIDE 0.9% 50 ML IV ONE (15:28)
[2023-09-23] MEDS: SODIUM CHLORIDE FLUSH 0.9% 10 ML SYRINGE IVP SCH (15:35)
[2023-09-23] MEDS: MEROPENEM 1 GM in SODIUM CHLORIDE 0.9% MINIBAG 100 ML IV SCH (15:43)
--- NOTE | 2023-09-23 16:03 | PHARMACY PROGRESS NOTE ---
- Best Possible Medication History Admit Date and Time: 09/23/23 1313 Processed by: Pharmacy Medications reviewed in ED?: Yes Medication History completed: Yes Patient Interview: Pt unable to participate Secondary Source(s): Insurance records, Facility MAR as ONLY source As the person ultimately responsible for medication therapy, providers are able to order a medication from an existing home medication list in [facility] via the "Reconcile Routine" prior to Confirmation of that medication by patient support specialist. Such practice is discouraged except when the physician, in their clinical judgment, deems that a medical need exists for a medication without regard to previous use.
--- NOTE | 2023-09-23 16:08 | PHARMACY PROGRESS NOTE ---
- Therapy Status Vancomycin regimen day #: 1 Therapy status: Awaiting steady state Basis for treatment: Empirical Treatment indication: HCAP Trough goal: 400-600 Concurrent antibiotics: LAKE, AZITHROMYCIN - HAN Risk Risk level for Acute Kidney Injury: High Acute Kidney Injury risk factors: Other nephrotoxic agents, Baseline CrCl <50, Goal trough >15, Admission to ICU, Sepsis - Monitoring and Recommendation Clinical response to treatment: Lab Results 09/23/23 11:05 BUN 61 H Creatinine 1.9 H Estimated GFR (MDRD) 25 L Monitoring plan: Daily serum creatinine Areas for additional monitoring: IV to PO when appropriate, Therapy de- escalation based on culture results, QT prolonging medications used in combination, Acute Kidney Injury Pharmacy recommendation: Continue current regime (1000 MG X1 VANCO LOAD. OBTAIN RANDOM VANCO LEVEL TOMORROW AM TO ASSESS CL.)
[2023-09-23] MEDS: MAGNESIUM SULFATE 2 GRAM 2 GM/50 ML BAG IV SCH (16:09)
[2023-09-23] MEDS: POTASSIUM CHLOR 10 MEQ/100 ML 10 MEQ/100 ML BAG IV SCH (16:21)
[2023-09-23] MEDS: iohexoL-300 100 ML VIAL IVP ONE (16:46)
[2023-09-23] MEDS ORDERED: ACETAMINOPHEN 1,000 MG/100 ML 1,000 MG/100 ML BAG IV PRN (17:05)
[2023-09-23] MEDS: INSULIN REGULAR HUMAN 300 UNIT/3 ML VIAL SUBQ SCH (17:54)
[2023-09-23] MEDS: VANCOMYCIN INJ 1 GM in SODIUM CHLORIDE 0.9% 250 ML IV ONE (17:55)
[2023-09-23] MEDS: HYDROmorphone 0.5 MG/0.5 ML SYRINGE IVP PRN (18:29)
[2023-09-23] MEDS: IPRATROPIUM/ALBUTEROL 3 ML NEB INH SCH (19:07)
[2023-09-23] MEDS: FAMOTIDINE 20 MG/2 ML VIAL IVP SCH (20:25)
[2023-09-23] MEDS: DEXTROSE 50% ABBOJECT 25 GM/50 ML SYRINGE IVP STA (21:13)
[2023-09-23] MEDS: DEXTROSE 5% 1,000 ML IV SCH (21:14)
[2023-09-23] MEDS: fentaNYL 100 MCG/2 ML VIAL IVP PRN (23:36)
[2023-09-24 01:31] LABS: CALCIUM, IONIZED 1.05 mmol/L (1.15-1.33); VBG PH 7.27 (7.31-7.41)
[2023-09-24 01:38] LABS: MAGNESIUM 2.5 mg/dL (1.7-2.3)
[2023-09-24 01:44] LABS: ALBUMIN 2.7 g/dL (3.2-5.5); ALBUMIN/GLOBULIN RATIO 1.4 (1.0-2.2); BILIRUBIN,TOTAL 0.9 mg/dL (0.2-1.0); CALCIUM 8.1 mg/dL (8.5-10.3); CREATININE 1.9 mg/dL (0.6-1.3); POTASSIUM 4.3 mmol/L (3.5-4.5); TOTAL PROTEIN 4.7 g/dL (6.4-8.9)
[2023-09-24] MEDS: ZINC OXIDE 20% OINT 30 GM TUBE TOP PRN (01:50)
[2023-09-24] MEDS: CALCIUM GLUC 1,000MG/50ML-NACL 1,000 MG/50 ML BAG IV ONE (02:12)
[2023-09-24] MEDS ORDERED: SODIUM CHLORIDE 0.9% 1,000 ML ONE (03:31)
[2023-09-24] MEDS: SODIUM CHLORIDE 0.9% 1,000 ML IV ONE (03:37)
[2023-09-24] MEDS: diltiaZEM INJ 5 MG/ML VIAL IVP PRN ×2 (03:37→04:01)
[2023-09-24 04:27] LABS: CALCIUM, IONIZED 1.1 mmol/L (1.15-1.33)
[2023-09-24 04:29] LABS: BASOPHILS % (AUTO) 0.9 %; HCT - HEMATOCRIT 28.1 % (37.0-47.0); HGB - HEMOGLOBIN 8.1 g/dL (12.0-16.0); LYMPHOCYTES % (AUTO) 4.2 %; MEAN CORPUSCULAR HEMOGLOBIN 33.3 pg (27.0-31.0); MEAN CORPUSCULAR HGB CONC 28.8 g/dL (32.0-36.0); MEAN CORPUSCULAR VOLUME 115.6 fL (81.0-99.0); MONOCYTES % (AUTO) 2.9 %; PLT - PLATELET COUNT 50 10^3/uL (130-450); RED BLOOD COUNT 2.43 10^6/uL (4.20-5.40); RED CELL DISTRIBUTION WIDTH 19.5 % (12.0-15.0); VBG PH 7.187 (7.31-7.41); WHITE BLOOD COUNT 4.5 x10^3/uL (4.8-10.8)
[2023-09-24 04:31] LABS: ABNORMAL LYMPHS % (MANUAL) 0 %
[2023-09-24] MEDS: SODIUM CHLORIDE 0.9% 1,000 ML IV SCH (04:50)
[2023-09-24 05:05] LABS: PHOSPHORUS 5.3 mg/dL (2.5-5.0); VANCOMYCIN,RANDOM 13.6 ug/mL
[2023-09-24 05:12] LABS: BAND NEUTROPHILS % (MANUAL) 9 %; DIFFERENTIAL COMMENT MANUAL DIFFERENTIAL; LYMPHOCYTES # (MANUAL) 0.6 10^3/uL (1.5-3.5); LYMPHOCYTES % (MANUAL) 12 %; MONOCYTES # (MANUAL) 0.3 10^3/uL (0.0-1.0); NEUTROPHILS # (MANUAL) 3.6 10^3/uL (1.5-6.6); PLATELET ESTIMATE, MANUAL DECREASED (<130,000) (NORMAL); RBC MORPHOLOGY (MULTIPLE) 1+ ANISOCYTOSIS (NORMAL); REACTIVE LYMPHS % (MANUAL) 1 %
[2023-09-24] MEDS: LEVOTHYROXINE 100 MCG TABLET PO SCH (06:00)
[2023-09-24 06:07] LABS: ABG PH 7.23 (7.35-7.45)
[2023-09-24 06:08] LABS: ABG HCO3 14.6 mmol/L (22.0-26.0); ABG OXYGEN SATURATION 94 % (94-98); ABG PCO2 36 mmHg (34-45); ABG PO2 73 mmHg (80-100); ABG TCO2 15.7 MMOL/L (21.0-29.0); ALLEN TEST POSITIVE
[2023-09-24 06:09] LABS: ABG RESPIRATORY RATE 12 b/min
[2023-09-24] MEDS ORDERED: DEXTROSE 50% ABBOJECT 25 GM/50 ML SYRINGE ONE (08:03)
[2023-09-24] MEDS: DEXTROSE 50% ABBOJECT 25 GM/50 ML SYRINGE IVP ONE (08:05)
[2023-09-24] MEDS: SODIUM BICARBONATE 100 MEQ in DEXTROSE 5% 1,000 ML IV SCH (08:42)
[2023-09-24] MEDS ORDERED: CHOLECALCIFEROL 25 MCG TABLET PO SCH (09:00)
[2023-09-24] MEDS: DEXTROSE 5% 1,000 ML IV SCH (09:12)
[2023-09-24] MEDS: AZITHROMYCIN INJ 500 MG in SODIUM CHLORIDE 0.9% 250 ML IV SCH (09:32)
[2023-09-24 09:34] LABS: ALBUMIN 2.3 g/dL (3.2-5.5); ALBUMIN/GLOBULIN RATIO 1.2 (1.0-2.2); CALCIUM 7.7 mg/dL (8.5-10.3); CREATININE 1.8 mg/dL (0.6-1.3); POTASSIUM 4.2 mmol/L (3.5-4.5); TOTAL PROTEIN 4.2 g/dL (6.4-8.9)
[2023-09-24] MEDS: methylPREDNISolone SUCCINATE 125 MG/2 ML VIAL IVP SCH (09:38)
[2023-09-24 09:42] LABS: TROPONIN I HIGH SENSITIVITY 392.2 ng/L (2.3-14.8)
[2023-09-24 09:47] LABS: THYROID STIMULATING HORMONE 0.28 uIU/mL (0.34-5.60)
[2023-09-24] MEDS ORDERED: SODIUM BICARBONATE 150 MEQ in DEXTROSE 5% 1,000 ML IV SCH (10:00)
[2023-09-24 10:10] LABS: ABG HCO3 13.7 mmol/L (22.0-26.0); ABG PCO2 45 mmHg (34-45)
[2023-09-24 10:11] LABS: ABG BASE EXCESS -14.9 mmol/L (-2.0-3.0); ABG MODE OF VENTILATION SYNCHRONOUS/TIMES; ABG RESPIRATORY RATE 12 b/min; ABG TCO2 15.1 MMOL/L (21.0-29.0); ALLEN TEST POSITIVE
[2023-09-24 10:13] LABS: ABG OXYGEN SATURATION 21 % (94-98); ABG PO2 17 mmHg (80-100)
[2023-09-24] MEDS ORDERED: MIDAZOLAM 2 MG/2 ML VIAL ONE (10:23)
[2023-09-24] MEDS ORDERED: KETAMINE 500 MG/10 ML VIAL ONE (10:24)
[2023-09-24] MEDS ORDERED: MIDAZOLAM 2 MG/2 ML VIAL IVP ONE (10:35)
--- NOTE | 2023-09-24 10:41 | PROCEDURE REPORT ---
Hospitalist Procedure Note - Procedure Note Procedure Note: Date of procedure: 09/24/2023 Procedure: Emergent intubation Consent: Consent was not obtained because procedure was deemed emergent. Procedure: I was called to patient's bedside for a change in vital signs. Patient was hypotensive with systolic blood pressures less than 70 and the patient appeared to be having agonal breathing. The decision was made to intubate. Patient did open her eyes to sternal rub and voice prior to procedure otherwise she was unable to communicate. Patient was placed in the supine position and FiO2 on bilevel positive airway pressure therapy was increased to 100%. The patient was given 2 mg of Versed and after approximately 90 seconds, the patient was not responding to sternal rub or voice. View of the vocal cords was grade 2. A 7.5 mm endotracheal tube was observed to pass through the vocal cords and into the trachea. Placement was confirmed by auscultation of the lungs bilaterally and color change of colorimetry. There were no complications postprocedure. Chest x-ray postprocedure demonstrated the endotracheal tube was in good position and approximately 3 cm above the jami.
[2023-09-24 10:54] LABS: ALBUMIN 2.3 g/dL (3.2-5.5); ALBUMIN/GLOBULIN RATIO 1.2 (1.0-2.2); CALCIUM 7.8 mg/dL (8.5-10.3); CREATININE 1.8 mg/dL (0.6-1.3); POTASSIUM 4.3 mmol/L (3.5-4.5); TOTAL PROTEIN 4.3 g/dL (6.4-8.9)
[2023-09-24] MEDS: ASCORBIC ACID 500 MG TABLET PO SCH (10:59)
[2023-09-24] MEDS: MIRTAZAPINE 15 MG TABLET PO SCH (10:59)
[2023-09-24] MEDS: ATORVASTATIN 40 MG TABLET PO SCH (10:59)
[2023-09-24] MEDS: FERROUS SULFATE 325 MG TABLET PO SCH (10:59)
[2023-09-24] MEDS: FLUoxetine 10 MG CAPSULE PO SCH (10:59)
[2023-09-24] MEDS: PANTOPRAZOLE 40 MG TABLET PO SCH (11:00)
--- NOTE | 2023-09-24 11:09 | PHARMACY PROGRESS NOTE ---
- Therapy Status Vancomycin regimen day #: 2 Therapy status: Awaiting steady state Basis for treatment: Empirical Treatment indication: HCAP Trough goal: 400-600 Concurrent antibiotics: LAKE, AZITHROMYCIN - HAN Risk Risk level for Acute Kidney Injury: High Acute Kidney Injury risk factors: Other nephrotoxic agents, Baseline CrCl <50, Goal trough >15, Admission to ICU, Sepsis - Monitoring and Recommendation Clinical response to treatment: Lab Results 09/23/23 11:05 BUN 61 H Creatinine 1.9 H Estimated GFR (MDRD) 25 L Cultures 09/23/23 12:24 Blood - Left Hand Blood Culture - Preliminary 09/23/23 11:56 Blood - Right Hand Blood Culture (PCR) - Final Monitoring plan: Daily serum creatinine Areas for additional monitoring: IV to PO when appropriate, Therapy de- escalation based on culture results, QT prolonging medications used in combination, Acute Kidney Injury Pharmacy recommendation: Continue current regime (LOADED WITH 1000 MG X1 ON 325 PM. VANCO RANDOM THIS AM = 13.6. SCR CAME DOWN SLIGHTLY. WILL CONTINUE WITH 1000 MG X1 TONIGHT. REASSESS SCR TOMORROW AM.)
[2023-09-24] MEDS: ENOXAPARIN 40 MG/0.4 ML SYRINGE SUBQ SCH (11:12)
--- NOTE | 2023-09-24 11:35 | XRAY Report ---
PROCEDURE: Post ET Tube 1V CXR INDICATIONS: ETT placement, OG placement TECHNIQUE: One view of the chest was acquired. COMPARISON: Chest x-ray 09/23/2023 FINDINGS: Surgical changes and devices: Endotracheal tube is present approximately 2.8 cm superior to the josy na. Nasogastric tube is present projecting below the left hemidiaphragm. Lungs and pleura: No pleural effusions or pneumothorax. Stable appearance of right upper lobe opacit y. Mediastinum: Mediastinal contours appear normal. Heart size is normal. Bones and chest wall: No suspicious bony lesions. Overlying soft tissues appear unremarkable. IMPRESSION: Support lines as above in appropriate position. Reviewed by: Liv Andujar MD on 09/24/2023 11:34 AM PDT Approved by: Liv Andujar MD on 09/24/2023 11:34 AM PDT Station ID: [id number]
[2023-09-24] MEDS: LORazepam 2 MG/ML VIAL IVP PRN (12:25)
[2023-09-24] MEDS: METOPROLOL 5 MG/5 ML VIAL IVP STA (12:48)
[2023-09-24] MEDS: METOCLOPRAMIDE 10 MG/2 ML VIAL IVP ONE (13:49)
[2023-09-24] MEDS: ADENOSINE 6 MG/2 ML VIAL IVP ONE (13:49)
[2023-09-24] MEDS: SODIUM CHLORIDE 0.9% 500 ML IV ONE (17:37)
[2023-09-24] MEDS: VANCOMYCIN INJ 1 GM in SODIUM CHLORIDE 0.9% 250 ML IV ONE (17:51)
[2023-09-24] MEDS ORDERED: fentaNYL 100 MCG/2 ML VIAL IVP PRN (18:09)
[2023-09-24 20:29] VITALS: O2SAT 97
[2023-09-24] MEDS: ACETAMINOPHEN 1,000 MG/100 ML 1,000 MG/100 ML BAG IV ONE (21:03)
[2023-09-24] MEDS ORDERED: LACTATED RINGERS 500 ML IV ONE ×2 (22:03→22:08)
[2023-09-24] MEDS ORDERED: LACTATED RINGERS 1,000 ML ONE (22:10)
[2023-09-24] MEDS: LACTATED RINGERS 250 ML IV ONE (22:15)
[2023-09-24 22:28] LABS: MAGNESIUM 2.3 mg/dL (1.7-2.3)
--- NOTE | 2023-09-24 22:36 | PROVIDER PROGRESS NOTE ---
Assessment/Plan - Problem List (1) Septic shock Assessment/Plan: Septic shock secondary to right upper lobe pneumonia as evidenced on CT scan. Lactate continues to trend down. Patient remains critically ill and continues to have a life-threatening condition most likely secondary to pneumonia. She continues to require Levophed for hemodynamic support. She remains critically ill. Continue stress dose steroids with methylprednisolone. Continue broad-spectrum antibiotic coverage with azithromycin and imipenem. (2) Acute hypoxemic respiratory failure Respiratory failure most likely secondary to pneumonia and underlying severe COPD.Patient remains critically ill and is currently on artificial life support with mechanical ventilation.This is a life-threatening condition. Ventilator settings. Mode: Assist-control respiratory rate 14 tidal volume 400 FiO2 100%. Wean FiO2 as tolerated. (3) HAN (acute kidney injury) Conclusion/Plan: Avoid nephrotoxins.Continue to monitor BUNs/creatinine.Creatinine today was 1.8. (4) Acute exacerbation of COPD with asthma Conclusion/Plan: Continue methylprednisolone 125 mg every 8 hours. Continue bronchodilators. (5) Hypoxia Conclusion/Plan: TTE performed on September 23, 2023 revealed moderate and increased right sided pressures. She does have a history of HFpEF, close monitoring of I/O's. (6) Non-pressure chronic ulcer of other part of left foot with necrosis of bone Conclusion/Plan: MRI from July showing left lower extremity osteomyelitis. She received 2 weeks of IV vancomycin through PICC line. Follows with wound clinic. (7) Right upper lobe pneumonia Conclusion/Plan: Continue antibiotics as above. Will treat this as hospital-acquired pneumonia given she received IV vancomycin within the last month. (8) Thrombocytopenia, unspecified Conclusion/Plan: Etiology of thrombocytopenia not clear but worrisome for possible heparin- induced thrombocytopenia. May also be related to severe sepsis. Continue to monitor. All heparin has been discontinued. (9) Hypothyroidism Conclusion/Plan: --Continue levothyroxine. TSH in AM. (10) Hyperlipidemia Conclusion/Plan: A atorvastatin on hold. (11) MDD (major depressive disorder) Conclusion/Plan: Antidepressants on hold. (12) Goals of care. Discussed with patient's daughter Janeth. Her telephone number is [phone]. I talked with her on the phone today and informed her that her mother is clinical condition is very tenuous and it was my opinion that her overall prognosis was poor given her severe sepsis, respiratory failure and underlying chronic problems to include right heart failure, COPD. After some discussion, Janeth stated that she would not want her mother to undergo chest compressions, defibrillation or receive ACLS medications in the event of a cardiopulmonary arrest. She does wish for her mother to continue with her present level of care. At the end of our discussion I recommended that she discuss with other family members goals of care in the event that the patient's clinical condition does not improve over the next 48-72 hours. Patient CODE STATUS has been changed to DO NOT RESUSCITATE. Time spent at patient's bedside excluding procedure time, examining the patient, evaluating labs and writing orders in addition to discussion with family: 80 minutes . - Current Meds Current Meds: Current Medications Generic Name Dose Route Start Last Admin Trade Name Freq PRN Reason Stop Dose Admin Albuterol/Ipratropium 3 ml 09/23/23 19:00 09/24/23 19:02 Ipratropium/Albuterol 3 Ml Neb INH 3 ml RTQID MEAGAN Administration Diltiazem HCl 20 mg 09/24/23 03:54 09/24/23 04:01 Diltiazem Inj 5 Mg/Ml Vial IVP 09/24/23 23:59 20 mg ONCE PRN Administration Tachycardia Ferrous Sulfate 325 mg 09/24/23 09:00 09/24/23 10:59 Ferrous Sulfate 325 Mg Tablet PO Not Given DAILY MEAGAN Fluoxetine HCl 20 mg 09/24/23 09:00 09/24/23 10:59 Fluoxetine 10 Mg Capsule PO Not Given DAILY MEAGAN Meropenem 1 gm/ Sodium 100 mls @ 200 mls/hr 09/23/23 16:00 09/24/23 16:20 Chloride IV Infused Q12H MEAGAN Infusion Azithromycin 500 mg/ Sodium 250 mls @ 250 mls/hr 09/24/23 09:00 09/24/23 10:35 Chloride IV 09/29/23 08:59 Infused DAILY MEAGAN Infusion Dextrose 1,000 mls @ 100 mls/hr 09/23/23 22:00 09/24/23 20:04 D5w IV Not Given .Q10H MEAGAN Sodium Bicarbonate 100 meq/ 1,100 mls @ 100 mls/hr 09/24/23 07:00 09/24/23 20:43 Dextrose IV 100 mls/hr .Q11H MEAGAN Administration Norepinephrine Bitartrate 8 mg 250 mls @ 50.625 mls/hr 09/24/23 18:00 09/24/23 19:58 / Sodium Chloride IV 27 mcg/min .Q4H57M MEAGAN 50.625 mls/hr Administration Protocol Insulin Human Regular 1 - 5 unit 09/23/23 18:00 09/24/23 18:34 Insulin Regular Human 300 Unit/3 Ml Vial SUBQ Not Given Q6HR [facility] Protocol Levothyroxine Sodium 100 mcg 09/24/23 07:00 09/24/23 06:00 Levothyroxine 100 Mcg Tablet PO Not Given QDAC [facility] Lorazepam 0.5 mg 09/24/23 10:55 09/24/23 15:01 Lorazepam 2 Mg/Ml Vial IVP 0.5 mg Q1H PRN Administration Anxiety Methylprednisolone Sodium Succinate 125 mg 09/24/23 09:00 09/24/23 13:52 Methylprednisolone Succinate 125 Mg/2 Ml Vial IVP 125 mg TID MEAGAN Administration Multi-Ingredient Ointment 1 applic 09/24/23 00:15 09/24/23 19:59 Zinc Oxide 20% Oint 30 Gm Tube TOP 1 applic PRN PRN Administration Skin Care Sodium Chloride 10 ml 09/23/23 17:00 09/24/23 17:58 Sodium Chloride Flush 0.9% 10 Ml Syringe IVP 10 ml 0100,0900,1700 [facility] Administration - Lab Result Fish Bone Diagrams: 09/24/23 04:20 09/24/23 22:10 - Additional Planning My Orders: My Active Orders 09/24/23 09:00 methylPREDNISolone SUCCINATE [SOLU-Medrol (125MG VIAL)] 125 mg IVP TID 09/24/23 09:24 RT - Obtain Arterial Specimen [RC] .ONCE 09/24/23 10:55 LORazepam INJ [Ativan Inj (Vial)] 0.5 mg IVP Q1H PRN 09/24/23 11:40 Initial Ventilator Settings [RC] .ONCE 09/24/23 11:41 Ventilator Bundle Oral Care [RC] Q2H Ventilator Bundle [RC] Q8H Ventilator Care - ICU [RC] Q4HR 09/24/23 11:44 NPO [DIET] 09/24/23 18:00 Sodium Chloride 0.9% [Normal Saline 0.9%] 242 ml NORepinephrine [Levophed] 8 mg IV 50.625 mls/hr 09/24/23 18:09 fentaNYL 25 mcg IVP Q2H PRN 09/25/23 07:00 Pantoprazole [Protonix] 40 mg IVP QDAC Subjective - Subjective Patient Reports: Other (Intubated and sedated.) Objective Vital Signs: Vital Signs - 24 hr 09/23/23 09/23/23 09/24/23 22:38 23:00 00:00 Temperature 36.7 C Heart Rate 110 H Heart Rate [ 125 H 131 H Monitoring electrodes] Respiratory 18 17 Rate Blood Pressure Blood Pressure 105/80 103/66 [Left Brachial artery] Blood Pressure [Left Radial artery] O2 Saturation 98 100 09/24/23 09/24/23 09/24/23 00:30 01:00 01:30 Temperature Heart Rate Heart Rate [ 132 H 131 H 131 H Monitoring electrodes] Respiratory 13 Rate Blood Pressure Blood Pressure 113/64 96/63 112/72 [Left Brachial artery] Blood Pressure [Left Radial artery] O2 Saturation 97 09/24/23 09/24/23 09/24/23 02:00 02:19 02:30 Temperature Heart Rate 112 H Heart Rate [ 128 H 127 H Monitoring electrodes] Respiratory 14 Rate Blood Pressure Blood Pressure 100/53 L 86/61 L [Left Brachial artery] Blood Pressure [Left Radial artery] O2 Saturation 94 09/24/23 09/24/23 09/24/23 03:00 03:30 03:35 Temperature 36.8 C Heart Rate Heart Rate [ 129 H 128 H 131 H Monitoring electrodes] Respiratory 13 Rate Blood Pressure Blood Pressure 98/62 105/54 L 118/60 [Left Brachial artery] Blood Pressure [Left Radial artery] O2 Saturation 97 09/24/23 09/24/23 09/24/23 03:37 03:40 03:45 Temperature Heart Rate Heart Rate [ 114 H 119 H Monitoring electrodes] Respiratory Rate Blood Pressure 118/60 Blood Pressure 102/64 102/71 [Left Brachial artery] Blood Pressure [Left Radial artery] O2 Saturation 09/24/23 09/24/23 09/24/23 03:50 03:52 03:55 Temperature Heart Rate Heart Rate [ 120 H 125 H 120 H Monitoring electrodes] Respiratory 13 Rate Blood Pressure Blood Pressure 96/84 H 96/84 H 110/53 L [Left Brachial artery] Blood Pressure [Left Radial artery] O2 Saturation 95 09/24/23 09/24/23 09/24/23 04:00 04:01 04:05 Temperature Heart Rate Heart Rate [ 120 H 103 H Monitoring electrodes] Respiratory 13 Rate Blood Pressure 98/57 L Blood Pressure 98/57 L 85/71 L [Left Brachial artery] Blood Pressure [Left Radial artery] O2 Saturation 97 09/24/23 09/24/23 09/24/23 04:07 04:10 04:11 Temperature Heart Rate Heart Rate [ 103 H 100 Monitoring electrodes] Respiratory Rate Blood Pressure 138/62 H Blood Pressure 72/47 L 116/56 L [Left Brachial artery] Blood Pressure [Left Radial artery] O2 Saturation 09/24/23 09/24/23 09/24/23 04:15 04:20 04:25 Temperature Heart Rate Heart Rate [ 108 H 110 H 112 H Monitoring electrodes] Respiratory Rate Blood Pressure Blood Pressure 84/70 L 106/58 L 103/70 [Left Brachial artery] Blood Pressure [Left Radial artery] O2 Saturation 09/24/23 09/24/23 09/24/23 04:30 04:31 04:35 Temperature Heart Rate Heart Rate [ 113 H 111 H Monitoring electrodes] Respiratory Rate Blood Pressure 138/62 H Blood Pressure 107/56 L 105/48 L [Left Brachial artery] Blood Pressure [Left Radial artery] O2 Saturation 09/24/23 09/24/23 09/24/23 04:40 04:45 04:50 Temperature Heart Rate Heart Rate [ 114 H 116 H 115 H Monitoring electrodes] Respiratory Rate Blood Pressure Blood Pressure 138/62 H 106/69 110/50 L [Left Brachial artery] Blood Pressure [Left Radial artery] O2 Saturation 09/24/23 09/24/23 09/24/23 04:55 05:00 05:32 Temperature Heart Rate 110 H Heart Rate [ 116 H 117 H Monitoring electrodes] Respiratory 12 Rate Blood Pressure Blood Pressure 137/70 H 109/64 [Left Brachial artery] Blood Pressure [Left Radial artery] O2 Saturation 94 09/24/23 09/24/23 09/24/23 05:33 06:00 07:00 Temperature 36.6 C Heart Rate 109 H Heart Rate [ 120 H 125 H Monitoring electrodes] Respiratory 17 13 13 Rate Blood Pressure Blood Pressure 119/73 119/88 H [Left Brachial artery] Blood Pressure [Left Radial artery] O2 Saturation 97 96 09/24/23 09/24/23 09/24/23 07:17 08:00 09:00 Temperature 36.9 C Heart Rate 128 H Heart Rate [ 111 H 119 H Monitoring electrodes] Respiratory 27 H 16 Rate Blood Pressure Blood Pressure 139/126 H 126/68 [Left Brachial artery] Blood Pressure [Left Radial artery] O2 Saturation 93 86 L 09/24/23 09/24/23 09/24/23 09:35 10:00 10:29 Temperature Heart Rate 130 H 155 H Heart Rate [ 73 Monitoring electrodes] Respiratory 19 Rate Blood Pressure Blood Pressure 76/46 L [Left Brachial artery] Blood Pressure [Left Radial artery] O2 Saturation 90 L 09/24/23 09/24/23 09/24/23 10:45 11:00 11:15 Temperature Heart Rate Heart Rate [ 129 H 130 H 161 H Monitoring electrodes] Respiratory 16 14 22 Rate Blood Pressure Blood Pressure 115/55 L 121/62 79/51 L [Left Brachial artery] Blood Pressure [Left Radial artery] O2 Saturation 91 L 98 100 09/24/23 09/24/23 09/24/23 11:30 11:45 12:00 Temperature Heart Rate Heart Rate [ 122 H 160 H 128 H Monitoring electrodes] Respiratory 17 18 18 Rate Blood Pressure Blood Pressure 96/78 94/60 99/71 [Left Brachial artery] Blood Pressure [Left Radial artery] O2 Saturation 100 100 100 09/24/23 09/24/23 09/24/23 12:42 12:48 13:00 Temperature Heart Rate 131 H Heart Rate [ 76 Monitoring electrodes] Respiratory 16 Rate Blood Pressure 103/72 Blood Pressure 46/23 L [Left Brachial artery] Blood Pressure [Left Radial artery] O2 Saturation 92 09/24/23 09/24/23 09/24/23 13:15 13:30 13:45 Temperature Heart Rate Heart Rate [ 78 123 H 131 H Monitoring electrodes] Respiratory 19 19 16 Rate Blood Pressure Blood Pressure 85/40 L 85/47 L 85/72 L [Left Brachial artery] Blood Pressure [Left Radial artery] O2 Saturation 67 L 97 100 09/24/23 09/24/23 09/24/23 14:00 14:15 14:30 Temperature Heart Rate Heart Rate [ 124 H 129 H 130 H Monitoring electrodes] Respiratory 20 20 20 Rate Blood Pressure Blood Pressure 105/62 99/79 96/72 [Left Brachial artery] Blood Pressure [Left Radial artery] O2 Saturation 100 100 100 09/24/23 09/24/23 09/24/23 14:45 15:00 15:19 Temperature Heart Rate 24 L Heart Rate [ 131 H 132 H Monitoring electrodes] Respiratory 20 20 21 Rate Blood Pressure Blood Pressure 85/72 L 104/61 [Left Brachial artery] Blood Pressure [Left Radial artery] O2 Saturation 100 99 09/24/23 09/24/23 09/24/23 15:30 16:00 17:00 Temperature 38.3 C H Heart Rate Heart Rate [ 135 H 133 H 101 H Monitoring electrodes] Respiratory 22 18 24 Rate Blood Pressure Blood Pressure 99/64 113/81 H 114/76 [Left Brachial artery] Blood Pressure [Left Radial artery] O2 Saturation 99 96 95 09/24/23 09/24/23 09/24/23 17:13 17:45 18:00 Temperature Heart Rate 105 H Heart Rate [ 105 H 98 Monitoring electrodes] Respiratory 28 H 21 Rate Blood Pressure Blood Pressure 118/70 102/49 L [Left Brachial artery] Blood Pressure [Left Radial artery] O2 Saturation 90 L 93 09/24/23 09/24/23 09/24/23 19:00 19:04 19:05 Temperature Heart Rate 110 H 110 H Heart Rate [ 103 H Monitoring electrodes] Respiratory 26 H 15 Rate Blood Pressure Blood Pressure 101/44 L [Left Brachial artery] Blood Pressure [Left Radial artery] O2 Saturation 96 09/24/23 09/24/23 09/24/23 19:30 20:00 21:00 Temperature 38.7 C H 39.2 C H Heart Rate Heart Rate [ 107 H 102 H 40 L Monitoring electrodes] Respiratory 26 H 26 H 26 H Rate Blood Pressure Blood Pressure [Left Brachial artery] Blood Pressure 108/47 L 96/70 80/61 L [Left Radial artery] O2 Saturation 96 97 09/24/23 21:30 Temperature Heart Rate Heart Rate [ 21 L Monitoring electrodes] Respiratory 16 Rate Blood Pressure Blood Pressure [Left Brachial artery] Blood Pressure 53/18 L [Left Radial artery] O2 Saturation Oxygen O2 Source [With Activity] Room air O2 Source [Without Activity] Room air O2 Source Mechanical ventilator I&O (Last 24 Hrs): Intake and Output Totals x24h 09/22/23 09/23/23 09/24/23 23:59 23:59 23:59 Intake Total 2483.501 4600.646 Output Total 328 254 Balance 2155.501 4346.646 General: Other (Opens eyes to voice and sternal rub.Moving all 4 extremities) HEENT: Atraumatic, Other (Endotracheal tube in good position.) Neck: Supple, No thyromegaly Neuro: Other (Moving all 4 extremities.) Cardiovascular: Other (Positive S1-S2 no extra heart sounds.) Respiratory: Other (Coarse breath sounds bilaterally positive wheezing fair air exchange.) Abdomen: Other (Hypoactive bowel sounds soft nontender nondistended) Extremities: No edema, Other (Positive mild cyanosis in the feet bilaterally) Skin: No rashes - Results Results: Laboratory Results WBC 4.5 x10^3/uL (4.8-10.8) L 09/24/23 04:20 RBC 2.43 10^6/uL (4.20-5.40) L 09/24/23 04:20 Hgb 8.1 g/dL (12.0-16.0) L 09/24/23 04:20 Hct 28.1 % (37.0-47.0) L 09/24/23 04:20 MCV 115.6 fL (81.0-99.0) H 09/24/23 04:20 MCH 33.3 pg (27.0-31.0) H 09/24/23 04:20 MCHC 28.8 g/dL (32.0-36.0) L 09/24/23 04:20 RDW 19.5 % (12.0-15.0) H 09/24/23 04:20 Plt Count 50 10^3/uL (130-450) L 09/24/23 04:20 MPV 11.0 fL (7.9-10.8) H 09/24/23 04:20 Neut # (Auto) Not Reportable 09/24/23 04:20 Lymph # (Auto) Not Reportable 09/24/23 04:20 Spalding # (Auto) Not Reportable 09/24/23 04:20 Eos # (Auto) Not Reportable 09/24/23 04:20 Baso # (Auto) Not Reportable 09/24/23 04:20 Absolute Nucleated RBC Not Reportable 09/24/23 04:20 Total Counted 100 09/24/23 04:20 Band Neuts % (Manual) 9 % (0-10) 09/24/23 04:20 Reactive Lymphs % (Man) 1 % 09/24/23 04:20 Abnorm Lymph % (Manual) 0 % 09/24/23 04:20 Metamyelocytes % 6 % (-0) H 09/23/23 11:05 Nucleated RBC % Not Reportable 09/24/23 04:20 Neutrophils # (Manual) 3.6 10^3/uL (1.5-6.6) 09/24/23 04:20 Lymphocytes # (Manual) 0.6 10^3/uL (1.5-3.5) L 09/24/23 04:20 Monocytes # (Manual) 0.3 10^3/uL (0.0-1.0) 09/24/23 04:20 Eosinophils # (Manual) 0.0 10^3/uL (0-0.7) 09/24/23 04:20 Basophils # (Manual) 0.0 10^3/uL (0-0.1) 09/24/23 04:20 Differential Comment MANUAL DIFFERENTIAL 09/24/23 04:20 Platelet Estimate DECREASED (<130,000) (NORMAL) 09/24/23 04:20 Platelet Morphology NORMAL APPEARANCE (NORMAL) 09/23/23 11:05 RBC Morph Micro Appear 1+ ANISOCYTOSIS (NORMAL) 09/24/23 04:20 Bld Gas Analysis Time 1000 09/24/23 10:00 Sample Site RIGHT RADIAL 09/24/23 10:00 ABG pH 7.10 (7.35-7.45) L* 09/24/23 10:00 ABG pCO2 45 mmHg (34-45) 09/24/23 10:00 ABG pO2 17 mmHg (80-100) L* 09/24/23 10:00 ABG HCO3 13.7 mmol/L (22.0-26.0) L 09/24/23 10:00 ABG Total CO2 15.1 MMOL/L (21.0-29.0) L 09/24/23 10:00 ABG O2 Saturation 21 % (94-98) L* 09/24/23 10:00 ABG Base Excess -14.9 mmol/L (-2.0-3.0) L 09/24/23 10:00 Felipe Test POSITIVE 09/24/23 10:00 VBG pH 7.187 (7.31-7.41) L* 09/24/23 04:20 Ionized Calcium 1.10 mmol/L (1.15-1.33) L 09/24/23 04:20 Respiration Rate 12 b/min 09/24/23 10:00 O2 Delivery Device BiPAP 09/24/23 10:00 Vent Mode SYNCHRONOUS/TIMES 09/24/23 10:00 FiO2 60.00 09/24/23 10:00 PEEP 5 cmH2O 09/24/23 05:50 EPAP 5 cmH2O 09/24/23 10:00 IPAP 10 cmH2O 09/24/23 10:00 Sodium 139 mmol/L (135-145) 09/24/23 08:57 Sodium 140 mmol/L (135-145) 09/24/23 08:57 Potassium 4.2 mmol/L (3.5-4.5) 09/24/23 08:57 Potassium 4.3 mmol/L (3.5-4.5) 09/24/23 08:57 Chloride 112 mmol/L (101-111) H 09/24/23 08:57 Chloride 113 mmol/L (101-111) H 09/24/23 08:57 Carbon Dioxide 13 mmol/L (21-32) L 09/24/23 08:57 Carbon Dioxide 15 mmol/L (21-32) L 09/24/23 08:57 Anion Gap 12.0 (6-13) 09/24/23 08:57 Anion Gap 14.0 (6-13) H 09/24/23 08:57 BUN 60 mg/dL (6-20) H 09/24/23 08:57 BUN 60 mg/dL (6-20) H 09/24/23 08:57 Creatinine 1.8 mg/dL (0.6-1.3) H 09/24/23 08:57 Creatinine 1.8 mg/dL (0.6-1.3) H 09/24/23 08:57 Estimated GFR (MDRD) 27 (>89) L 09/24/23 08:57 Estimated GFR (MDRD) 27 (>89) L 09/24/23 08:57 Glucose 184 mg/dL (74-104) H 09/24/23 08:57 Glucose 187 mg/dL (74-104) H 09/24/23 08:57 POC Whole Bld Glucose 99 mg/dL (70 - 100) 09/24/23 18:31 Lactic Acid 2.7 mmol/L (0.5-2.2) H 09/24/23 04:20 Calcium 7.7 mg/dL (8.5-10.3) L 09/24/23 08:57 Calcium 7.8 mg/dL (8.5-10.3) L 09/24/23 08:57 Phosphorus 5.3 mg/dL (2.5-5.0) H 09/24/23 04:20 Magnesium 2.3 mg/dL (1.7-2.3) 09/24/23 22:10 Total Bilirubin 1.0 mg/dL (0.2-1.0) 09/24/23 08:57 Total Bilirubin 1.0 mg/dL (0.2-1.0) 09/24/23 08:57 AST 47 IU/L (10-42) H 09/24/23 08:57 AST 47 IU/L (10-42) H 09/24/23 08:57 ALT 139 IU/L (10-60) H 09/24/23 08:57 ALT 140 IU/L (10-60) H 09/24/23 08:57 Alkaline Phosphatase 63 IU/L (42-121) 09/24/23 08:57 Alkaline Phosphatase 64 IU/L (42-121) 09/24/23 08:57 Troponin I High Sens 489.7 ng/L (2.3-14.8) H* 09/24/23 13:05 B-Natriuretic Peptide 4507 pg/mL (5-100) H 09/23/23 11:05 Total Protein 4.2 g/dL (6.4-8.9) L 09/24/23 08:57 Total Protein 4.3 g/dL (6.4-8.9) L 09/24/23 08:57 Albumin 2.3 g/dL (3.2-5.5) L 09/24/23 08:57 Albumin 2.3 g/dL (3.2-5.5) L 09/24/23 08:57 Globulin 1.9 g/dL (2.1-4.2) L 09/24/23 08:57 Globulin 2.0 g/dL (2.1-4.2) L 09/24/23 08:57 Albumin/Globulin Ratio 1.2 (1.0-2.2) 09/24/23 08:57 Albumin/Globulin Ratio 1.2 (1.0-2.2) 09/24/23 08:57 Lipase < 10 U/L (11-82) L 09/23/23 11:05 Vitamin B12 1269 pg/mL (180-914) H 09/24/23 04:20 Folate 20.3 ng/mL (5.90 - >24.8) 09/24/23 04:20 Procalcitonin Immunoas 94.91 ng/mL (<0.5) H* 09/23/23 14:10 TSH 0.28 uIU/mL (0.34-5.60) L 09/24/23 08:57 Nasal Adenovirus (PCR) NOT DETECTED 09/23/23 11:20 Nasal B. parapertussis DNA (PCR) NOT DETECTED 09/23/23 11:20 Nasal Coronavir 229E PCR NOT DETECTED 09/23/23 11:20 Nasal Coronavir HKU1 PCR NOT DETECTED 09/23/23 11:20 Nasal Coronavir NL63 PCR NOT DETECTED 09/23/23 11:20 Nasal Coronavir OC43 PCR NOT DETECTED 09/23/23 11:20 Nasal Enterovir/Rhinovir PCR NOT DETECTED 09/23/23 11:20 Nasal Influenza B PCR NOT DETECTED 09/23/23 11:20 Nasal Influenza A PCR NOT DETECTED 09/23/23 11:20 Nasal Parainfluen 1 PCR NOT DETECTED 09/23/23 11:20 Nasal Parainfluen 2 PCR NOT DETECTED 09/23/23 11:20 Nasal Parainfluen 3 PCR NOT DETECTED 09/23/23 11:20 Nasal Parainfluen 4 PCR NOT DETECTED 09/23/23 11:20 Nasal RSV (PCR) NOT DETECTED 09/23/23 11:20 Nasal Screen MRSA (PCR) NEGATIVE (NEGATIVE) 09/23/23 15:23 Nasal B.pertussis DNA PCR NOT DETECTED 09/23/23 11:20 Nasal C.pneumoniae (PCR) NOT DETECTED 09/23/23 11:20 John Human Metapneumo PCR NOT DETECTED 09/23/23 11:20 Nasal M.pneumoniae (PCR) NOT DETECTED 09/23/23 11:20 Nasal SARS-CoV-2 (PCR) NOT DETECTED 09/23/23 11:20 Last Dose Date 09-24-23 09/24/23 04:20 Last Dose Time 00009/24/23 04:20 Random Vancomycin 13.6 ug/mL 09/24/23 04:20 - Procedures Procedures: Procedures OPEN REDUC-INT FIX FEMUR (12/16/13) PACKED CELL TRANSFUSION (12/16/13)
[2023-09-24 22:43] VITALS: BP 53/18
[2023-09-24 22:43] LABS: ALBUMIN/GLOBULIN RATIO 1.2 (1.0-2.2); BILIRUBIN,TOTAL 1.1 mg/dL (0.2-1.0); CALCIUM 6.9 mg/dL (8.5-10.3); CREATININE 2.1 mg/dL (0.6-1.3); POTASSIUM 7.4 mmol/L (3.5-4.5); TOTAL PROTEIN 3.7 g/dL (6.4-8.9)
[2023-09-25] MEDS ORDERED: PANTOPRAZOLE 40 MG VIAL IVP SCH (07:00)
--- NOTE | 2023-09-26 17:57 | ED Physician Documentation ---
ED Addendum - Addendum Addendum: 09/24/23 4:05 AM - As Emergency Physician on duty, I responded to a CODE BLUE called overnight for this patient in the ICU. On arrival to room, found patient to have a pulse and sinus tachycardia on monitor. Per RN, pt had long sinus pause after receiving 10mg, 20mg IV diltiazem for reported SVT (ordered by tele hospitalist). RN called CODE BLUE after this event but pt went into sinus tachycardia and never received compressions. Pt is in septic shock and receiving levophed through PICC. Reportedly FULL CODE but per RN this was decision made by family as they overturned pt's DNR. Requested STAT EKG, glucose check and for tele hospitalist to be paged for further management as pt is admitted to their service. EKG shows sinus tachycardia, NO STEMI. Glucose 110.
== END 2023-09-24 22:22 | disposition expired | DRG 871 ==
LOC: EDUNIT# → ED 10:47 → ICU 13:13
PROVIDERS: ADMIT Family Medicine; ATTEND Internal Medicine
PROC: 0BH17EZ Insertion of Endotracheal Airway into Trachea, Via Natural or Artificial Opening (ICD-10-PCS; principal; 2023-09-24)
PROC: 5A1935Z Respiratory Ventilation, Less than 24 Consecutive Hours (ICD-10-PCS; 2023-09-24)
DX: A41.9 Sepsis, unspecified organism (principal); J18.9 Pneumonia, unspecified organism; R65.21 Severe sepsis with septic shock; J44.0 Chronic obstructive pulmonary disease with (acute) lower respiratory infection; N17.9 Acute kidney failure, unspecified; J44.1 Chronic obstructive pulmonary disease with (acute) exacerbation; I50.32 Chronic diastolic (congestive) heart failure; R60.0 Localized edema; I13.0 Hypertensive heart and chronic kidney disease with heart failure and stage 1 through stage 4 chronic kidney disease, or unspecified chronic kidney disease; D64.9 Anemia, unspecified; N18.9 Chronic kidney disease, unspecified; I95.9 Hypotension, unspecified; R79.89 Other specified abnormal findings of blood chemistry; I12.9 Hypertensive chronic kidney disease with stage 1 through stage 4 chronic kidney disease, or unspecified chronic kidney disease; D63.1 Anemia in chronic kidney disease; Z20.828 Contact with and (suspected) exposure to other viral communicable diseases; Z20.822 Contact with and (suspected) exposure to COVID-19; I27.20 Pulmonary hypertension, unspecified; I73.9 Peripheral vascular disease, unspecified; E03.9 Hypothyroidism, unspecified; N18.30 Chronic kidney disease, stage 3 unspecified; E78.00 Pure hypercholesterolemia, unspecified; H91.90 Unspecified hearing loss, unspecified ear; F17.200 Nicotine dependence, unspecified, uncomplicated; D69.6 Thrombocytopenia, unspecified; F32.9 Major depressive disorder, single episode, unspecified; L97.524 Non-pressure chronic ulcer of other part of left foot with necrosis of bone; Y95 Nosocomial condition; Z66 Do not resuscitate; Z79.52 Long term (current) use of systemic steroids; Z79.890 Hormone replacement therapy; Z79.899 Other long term (current) drug therapy; Z86.14 Personal history of Methicillin resistant Staphylococcus aureus infection; Z95.9 Presence of cardiac and vascular implant and graft, unspecified; Z99.81 Dependence on supplemental oxygen
CPT/HCPCS: 36415; 36600; 71045; 71275; 80053; 80202; 82330; 82607; 82746; 82803; 82947; 83605; 83690; 83735; 83880; 84100; 84132; 84145; 84443; 84484; 85025; 87040; 87077; 87086; 87150; 87181; 87633; 93005; 93307; 94002; 94640; 94660; 96361; 96374; 99285; 99291; A9270; J0131; J1170; J2060; J2185; J3370; J7120; Q9967